=== PATIENT | female | born 1935 | race Caucasian/White ===

== ENCOUNTER → 2017-12-20 15:31 | Outpatient (CLI) | payer MEDICARE, OTHER, SELFPAY | PROVIDERS: Family Provider Family Medicine Geriatric Medicine; PCP Family Medicine Geriatric Medicine; Visit Provider Family Medicine Geriatric Medicine | DX: R68.83 Chills (without fever) (principal) | CPT/HCPCS: 87633 ==

== ENCOUNTER → 2018-01-08 08:31 | Outpatient (CLI) | payer MEDICARE, OTHER, SELFPAY ==
[2018-01-08 09:50] LABS: AST(SGOT) 20 U/L (15-37); Alanine Aminotransfer ALT/SGPT 23 U/L (13-56); Albumin, Serum 3.5 g/dL (3.2-5.0); Alkaline Phosphatase 122 U/L (45-117); Cholesterol 182 mg/dL (200); Globulin 3.8 g/dL (2.2-4.2); High Density Lipoprotein 92 mg/dL; Protein, Total 7.3 g/dL (6.4-8.2); Triglycerides 63 mg/dL; Very Low Density Lipoprotein 13 mg/dL (5-40)
== END ==
PROVIDERS: Family Provider Family Medicine Geriatric Medicine; PCP Family Medicine Geriatric Medicine; Visit Provider Physician Assistant Medical
DX: E78.5 Hyperlipidemia, unspecified (principal); Z79.899 Other long term (current) drug therapy
CPT/HCPCS: 36415; 80061; 80076

== ENCOUNTER → 2018-03-21 11:11 | Outpatient (CLI) | payer MEDICARE, OTHER, SELFPAY ==
[2018-03-21 12:43] LABS: Absolute Lymphocyte Count 0.97 X10^3/ul (0.83-4.51); Absolute Neutrophil Count 6.1 X10^3/uL (2.0-7.7); Basophil# 0.03 X10^3/uL; Basophil% 0.4 % (0-1); Eosinophil# 0.37 X10^3/uL; Eosinophils% 4.4 % (0-5); Hematocrit 38.8 % (37-47); Lymphocyte # 0.97 X10^3/ul (4.0); Lymphocyte % 11.6 % (19-41); Mean Corp Hgb Conc 30.9 g/gl (32-36); Mean Corpuscular Hgb 29.6 pg (27.0-32.0); Mean Corpuscular Volume 95.6 fL (81-99); Mean Platelet Vol. 11.1 fl (6.2-12.0); Monocyte# 0.93 X10^3/uL; Monocyte% 11.1 % (0-10); Neutrophil # 6.07 X10^3/uL (2.7-7.7); Neutrophil % 72.3 % (47-70); Platelet Count 215 K/mm3 (150-450); RBC Distribution Width SD 48.9 fl (35.1-43.9); Red Blood Count 4.06 M/mm3 (4.2-5.4); White Blood Count 8.4 K/mm3 (4.4-11.0)
[2018-03-21 12:53] LABS: POSITIVE COUNT NO; POSITIVE DIFFERENTIAL NO; POSITIVE MORPHOLOGY NO
[2018-03-21 13:02] LABS: ALB/GLOB Ratio 0.8 RATIO (0.9-2.4); AST(SGOT) 23 U/L (15-37); Alanine Aminotransfer ALT/SGPT 22 U/L (13-56); Albumin, Serum 3.3 g/dL (3.2-5.0); Alkaline Phosphatase 133 U/L (45-117); Anion Gap 5 (5-15); BUN 23 mg/dL (7-18); BUN/Creat Ratio 20.4 RATIO (10-20); Calcium,Total 9.1 mg/dL (8.5-10.1); Chloride 101 mmol/L (98-107); Creatinine, Serum 1.13 mg/dL (0.55-1.02); EST Glomerular Filtration Rate 49 mL/min (>60); Est Glom Filt Rate - Afr Amer 59 mL/min (>60); Globulin 4.2 g/dL (2.2-4.2); Glucose 88 mg/dL (74-106); Potassium 4.5 mmol/L (3.5-5.1); Protein, Total 7.5 g/dL (6.4-8.2); Sodium Level 136 mmol/L (136-145); Thyroid Stim Hormone (TSH) 1.76 uIU/mL (0.358-3.74)
== END ==
PROVIDERS: Family Provider Family Medicine Geriatric Medicine; PCP Family Medicine Geriatric Medicine; Visit Provider Family Medicine Geriatric Medicine
DX: E55.9 Vitamin D deficiency, unspecified (principal); I10 Essential (primary) hypertension
CPT/HCPCS: 36415; 80053; 82306; 84443; 85025

== ENCOUNTER → 2018-05-29 16:24 | Outpatient (CLI) | payer MEDICARE, OTHER, SELFPAY ==
[2018-05-29 17:43] LABS: Absolute Lymphocyte Count 1.27 X10^3/ul (0.83-4.51); Absolute Neutrophil Count 5.5 X10^3/uL (2.0-7.7); Basophil# 0.04 X10^3/uL; Basophil% 0.5 % (0-1); Eosinophil# 0.33 X10^3/uL; Eosinophils% 4.2 % (0-5); Hematocrit 39.3 % (37-47); Hemoglobin 12.2 g/dl (12.0-15.0); Lymphocyte # 1.27 X10^3/ul (4.0); Lymphocyte % 16.1 % (19-41); Mean Corpuscular Hgb 30.1 pg (27.0-32.0); Mean Platelet Vol. 11.7 fl (6.2-12.0); Monocyte# 0.77 X10^3/uL; Monocyte% 9.8 % (0-10); Neutrophil # 5.46 X10^3/uL (2.7-7.7); Neutrophil % 69.1 % (47-70); Platelet Count 219 K/mm3 (150-450); RBC Distribution Width CV 13.4 % (11.6-14.6); RBC Distribution Width SD 46.2 fl (35.1-43.9); Red Blood Count 4.05 M/mm3 (4.2-5.4); White Blood Count 7.9 K/mm3 (4.4-11.0)
[2018-05-29 17:44] LABS: POSITIVE COUNT NO; POSITIVE DIFFERENTIAL NO; POSITIVE MORPHOLOGY NO
[2018-05-29 17:45] LABS: ALB/GLOB Ratio 0.8 RATIO (0.9-2.4); AST(SGOT) 23 U/L (15-37); Alanine Aminotransfer ALT/SGPT 20 U/L (13-56); Albumin, Serum 3.3 g/dL (3.2-5.0); Alkaline Phosphatase 133 U/L (45-117); Anion Gap 6 (5-15); BUN 18 mg/dL (7-18); Calcium,Total 8.9 mg/dL (8.5-10.1); Chloride 101 mmol/L (98-107); EST Glomerular Filtration Rate 56 mL/min (>60); Est Glom Filt Rate - Afr Amer 68 mL/min (>60); Globulin 4.3 g/dL (2.2-4.2); Glucose 77 mg/dL (74-106); Potassium 4.9 mmol/L (3.5-5.1); Protein, Total 7.6 g/dL (6.4-8.2); Sodium Level 136 mmol/L (136-145); Thyroid Stim Hormone (TSH) 2.14 uIU/mL (0.358-3.74)
== END ==
PROVIDERS: Family Provider Family Medicine Geriatric Medicine; PCP Family Medicine Geriatric Medicine; Visit Provider Family Medicine Geriatric Medicine
DX: R53.83 Other fatigue (principal)
CPT/HCPCS: 36415; 80053; 84443; 85025; 87086; 87088

== ENCOUNTER → 2018-06-21 14:33 | Outpatient (CLI) | payer MEDICARE, OTHER, SELFPAY | PROVIDERS: Family Provider Family Medicine Geriatric Medicine; PCP Family Medicine Geriatric Medicine; Visit Provider Family Medicine Geriatric Medicine | DX: Z12.31 Encounter for screening mammogram for malignant neoplasm of breast (principal) | CPT/HCPCS: 77063; 77067 ==

== ENCOUNTER → 2018-09-19 10:17 | Outpatient (CLI) | payer MEDICARE, OTHER, SELFPAY ==
[2018-09-16 14:57] VITALS: BMI 25.4
[2018-09-19 12:47] LABS: Absolute Lymphocyte Count 1.07 X10^3/ul (0.83-4.51); Absolute Neutrophil Count 5.3 X10^3/uL (2.0-7.7); Basophil# 0.05 X10^3/uL; Basophil% 0.6 % (0-1); Eosinophil# 0.47 X10^3/uL; Eosinophils% 6.1 % (0-5); Hematocrit 36.2 % (37-47); Hemoglobin 11.1 g/dl (12.0-15.0); Lymphocyte # 1.07 X10^3/ul (4.0); Lymphocyte % 13.8 % (19-41); Mean Corp Hgb Conc 30.7 g/gl (32-36); Mean Corpuscular Volume 94.5 fL (81-99); Mean Platelet Vol. 11.5 fl (6.2-12.0); Monocyte% 11.6 % (0-10); Neutrophil # 5.25 X10^3/uL (2.7-7.7); Neutrophil % 67.8 % (47-70); Platelet Count 216 K/mm3 (150-450); RBC Distribution Width CV 14.1 % (11.6-14.6); RBC Distribution Width SD 48.6 fl (35.1-43.9); Red Blood Count 3.83 M/mm3 (4.2-5.4); White Blood Count 7.8 K/mm3 (4.4-11.0)
[2018-09-19 12:50] LABS: POSITIVE COUNT NO; POSITIVE DIFFERENTIAL NO; POSITIVE MORPHOLOGY NO
[2018-09-19 13:18] LABS: Vitamin D,25 Hydroxy 45.5 ng/mL (29.95-100.01)
[2018-09-19 13:19] LABS: ALB/GLOB Ratio 0.8 RATIO (0.9-2.4); AST(SGOT) 22 U/L (15-37); Alanine Aminotransfer ALT/SGPT 23 U/L (13-56); Albumin, Serum 3.2 g/dL (3.2-5.0); Alkaline Phosphatase 120 U/L (45-117); Anion Gap 9 (5-15); BUN 18 mg/dL (7-18); BUN/Creat Ratio 17.5 RATIO (10-20); Calcium,Total 8.8 mg/dL (8.5-10.1); Chloride 100 mmol/L (98-107); Creatinine, Serum 1.03 mg/dL (0.55-1.02); EST Glomerular Filtration Rate 54 mL/min (>60); Est Glom Filt Rate - Afr Amer 66 mL/min (>60); Globulin 3.9 g/dL (2.2-4.2); Glucose 117 mg/dL (74-106); Protein, Total 7.1 g/dL (6.4-8.2); Sodium Level 138 mmol/L (136-145); Thyroid Stim Hormone (TSH) 1.89 uIU/mL (0.358-3.74)
--- OUTSIDE RECORDS SUMMARY | 2018-11-14 12:08 | XMS RPT_ITS ---
:1935 Author Organization OHIP Support Name Relationship Address Phone R Unavailable Unavailable Unavailable DAVID, ADRIANNA Unavailable [address] + [place] [address] R Unavailable Unavailable Unavailable DAVID, ADRIANNA Unavailable [address] + [place] [address] R Unavailable Unavailable Unavailable DAVID, ADRIANNA Unavailable [address] + [place] [address] R Unavailable Unavailable Unavailable DAVID, ADRIANNA Unavailable [address] + [place] [address] R Unavailable Unavailable Unavailable DAVID, ADRIANNA Unavailable [address] + [place] [address] R Unavailable Unavailable Unavailable DAVID, ADRIANNA Unavailable [address] + [place] [address] R Unavailable Unavailable Unavailable DAVID, ADRIANNA Unavailable [address] + [place] [address] R Unavailable Unavailable Unavailable DAVID, ADRIANNA Unavailable [address] + [place] [address] R Unavailable Unavailable Unavailable DAVID, ADRIANNA Unavailable [address] + [place] [address] R Unavailable Unavailable Unavailable DAVID, ADRIANNA Unavailable [address] + [place] [address] R Unavailable Unavailable Unavailable David, Adrianna Unavailable [address] + [place] [address] Care Team Providers Name Role Phone Vahid, Blas Chi Attending Unavailable Vahid, Blas Chi Referring Unavailable Vahid, Blas Chi Primary Care Unavailable Katja Michelle Attending Unavailable Katja Michelle Referring Unavailable Vahid, Blas Chi Primary Care Unavailable Dary Beverly Attending Unavailable Louie Crawford Attending Unavailable Vahid, Blas Chi Referring Unavailable Vahid, Blas Chi Primary Care Unavailable Ting Lawrence Attending Unavailable Louie Crawford Attending Unavailable Vahid, Blas Chi Referring Unavailable Vahid, Blas Chi Primary Care Unavailable Vahid, Blas Chi Attending Unavailable Vahid, Blas Chi Primary Care Unavailable Vahid, Blas Chi Attending Unavailable Vahid, Blas Chi Primary Care Unavailable Vahid, Blas Chi Attending Unavailable Vahid, Blas Chi Primary Care Unavailable Louie Crawford Attending Unavailable Vahid, Blas Chi Referring Unavailable Vahid, Blas Chi Attending Unavailable Vahid, Blas Chi Primary Care Unavailable PROBLEMS PROBLEMS DATE TYPE CONDITION / CODE ATTENDING STATUS SOURCE 06/21/2018 Unknown Z12.31 - Encounter Vahid, Blas Chi [facility] for screening [facility] mammogram for Hospital malignant neoplasm Repository of breast / Z12.31(ICD-10) 03/21/2018 Unknown I10 - Essential Vahid, Blas Chi [facility] [place] (primary) [facility] hypertension / Hospital I10(ICD-10) Repository 03/21/2018 Unknown E55.9 - Vitamin D Vahid, 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 (current) drug Hospital therapy / Repository Z79.899(ICD-10) PROCEDURES PROCEDURES No Procedure Records FoundRESULTS RESULTS CARDIOLOGY VISIT Observed: 09/20/2018 Status: F Source: [place] REPORT 11:12 AM [facility] REPOSITORY [facility] [address] [place] [address] OFFICE VISIT Date of Service: 09/16/18 MR#: [id number] Acct: [id number] Name: DEISY CASTILLO Rep #: [id number] : 1935 Provider: Louie Crawford MD Age/Sex: 83/F Location: [facility] Status: Signed HPI HPI Chief Complaint: Routine f/u Details: Referring physician: Dr Redding Mrs. Castillo is a very pleasant 83-year-old female, looks younger than her stated age, with a history of hypertension, hyperlipidemia, on losartan, and recently added HCTZ. She does not recall what her blood pressure was at that time but does not remember it being higher than 150 systolic. this seemed to control her very well, but she subsequently developed dehydration requiring cessation of her HCTZ and fluid resuscitation. Since that time the patient has had palpitations, and had acute dizziness requiring a visit to her PCPs office on 06/04/15. It apparently started abruptly, then became profoundly dizzy. her PCP felt that she was mildly dehydrated and she received 2 liters of IV fluids in his office for what appeared to be orthostatic hypotension. After that she felt much better. In addition we tried her hydrochlorothiazide every other day but she continued to have positional dizziness and hypotension. We discontinued her HCTZ altogether, and her blood pressure is normalized and she is doing extremely well. Since adjusting her medication as she walks about 35 minutes every day without any difficulty whatsoever. She is doing very well. She denies any anginal type symptoms. She has had no change in her exercise capacity. More recently, the [facility] into a [facility] living center, and has been doing quite well. She has adjusted fairly well, and has had very little difficulty. She is essentially asymptomatic at this time. She is compliant with her medications, and recently got a flu shot. However, in today's office her blood pressure is 120/60 and pulse is 76 and regular with ectopics. Her physical exam is as below. Her lipids as of 01/2016 showed HDL of 86 and LDL of 72. Her lipids as of 08/04/16 show HDL 112, and an LDL of 77. Lipids as of 02/06/17 show an HDL of 105 and an LDL of 66. No myalgias are noted. Lipids as of 07/10/17 showed LDL of 61 and HDL of 86. Her lipids as of 01/08/18 showed HDL of 92 and LDL of 77. EKG previously demonstrates normal sinus rhythm with frequent PACs, no acute changes. Intake Vital Signs09/16/18 Height 5 ft 4 in 09/16/18 Weight: 148 lb 09/16/18 Body Mass Index (BMI) 25.4 09/16/18 Blood Pressure 120/60 Intake Visit Reasons: 6 M FU Change Room Attendant Required: No Is patient in pain?: No Allergies No Known Allergies Allergy (Verified 09/16/18 14:58) Medications aspirin 81 mg tablet,delayed release 81 mg PO QDAY tab 02/02/18 [History Confirmed 09/16/18] cyanocobalamin (vit B-12) 1,000 mcg sublingual tablet 1,000 mcg SUBLINGUAL QDAY 02/02/18 [History Confirmed 09/16/18] ferrous sulfate 325 mg (65 mg iron) tablet 325 mg PO QDAY tab 02/02/18 [History Confirmed 09/16/18] levothyroxine 50 mcg tablet 50 mcg PO QDAY tab 02/02/18 [History Confirmed 09/16/18] magnesium oxide 400 mg (241.3 mg magnesium) tablet 400 mg PO QDAY tab 02/02/18 [History Confirmed 09/16/18] montelukast 10 mg tablet PO 90 Days 02/02/18 [History Confirmed 09/16/18] pravastatin 20 mg tablet PO 90 Days 02/02/18 [History Confirmed 09/16/18] diltiazem CD 120 mg capsule,extended release 24 hr 120 mg PO QAM #90 cap 09/16/18 [Rx Confirmed 09/16/18] losartan 100 mg tablet 100 mg PO QDAY #90 tab 09/16/18 [Rx Confirmed 09/16/18] PFSH Medical History Non-rheumatic tricuspid valve insufficiency (Chronic) Hyperlipidemia (Chronic) Hypertension (Chronic) Anemia (Chronic) Asthma (Chronic) Hypothyroidism (Chronic) Osteoporosis (Chronic) Surgical History History of cataract surgery (Chronic) Family History Sister Breast cancer Social History Smoking Status: Never smoker ROS Const Const: Positive for other (Feels well, is moving to [facility]); negative for fatigue, weakness, body ache, fever(s), headache(s), chills, frequent falls, night sweats, daytime sleepiness, difficulty sleeping, excessive sweating, weight gain, weight loss, increased appetite, poor appetite or anorexia Eyes Eyes: Negative for blind spots, loss of peripheral vision, transient loss of vision, blurry vision, change in vision, double vision, floaters, tunnel vision or other ENT ENT: Negative for headache(s), dizziness, hearing loss, tinnitus, Nosebleed/epistaxis, balance problems, post nasal drip, lip swelling, tongue swelling, bleeding gums, hoarseness, neck pain, dry mouth or other Cardio Chest Pain: No Palpitations: No Edema: None Muscle aches with walking: None Resp Respiratory: Negative for SOB with activity, SOB at rest, SOB orthopnea\SOB lying down, Cough, Coughing up blood/hemoptysis, chest congestion, pain on inspiration, snoring, stridor, wheezing, crackles, paroxysmal nocturnal dyspnea or other GI GI: Negative nausea, vomiting, heartburn, constipation, belching, bloating, cramping, vomiting blood/hematemesis, bright, red blood in stools, black,tarry stools, loose stools, Difficulty Swallowing or other : Negative for hematuria, frequent nighttime urination/ nocturia, erectile dysfunction or abnormal vaginal bleeding Musc Musc: Negative for balance problems, muscle aches/ myalgia, muscle weakness or joint pain Skin Skin: Negative redness, non-healing lesions, rash, unusual bruising, skin ulcer, wounds, jaundice or other Neuro Neuro: Negative for weakness, headache(s), frequent falls, blurry vision, double vision, dizziness, lightheadedness, near syncope, syncope, orthostatic symptoms, confusion, memory loss, restless legs, vertigo, seizures, lack of coordination or other [place] Hematologic/Lymphatic: Negative for easy bleeding, easy bruising, enlarged lymph nodes or other Endo Endo: Negative for fatigue, excessive sweating, cold intolerance, heat intolerance, flushing, increased thirst/drinking, increased hunger, hair loss, hair growth or other Psych Psych: Negative for anxiety, depression, thoughts of harming anyone, thoughts of harming yourself, visual hallucinations, panic attacks or audible hallucinations Allergy Allergy/Immunology: Negative for lip swelling, Negative for tongue swelling, Negative for rash, Negative for throat swelling, Negative for hives Cardiology Exam Const Appearance: cooperative, healthy appearing and no acute distress Nutritional Appearance: well nourished Orientation: alert, oriented x3 and oriented to person Head Head: normal to inspection, atraumatic and normocephalic Nose: external nose normal Face and Sinus: face symmetric Mouth: oral mucosae normal Eyes General: appearance normal, both eyes and all related structures Eyelids: eyelids normal Conjunctivae: conjunctivae normal Pupils: PERRL and normal by confrontation EOM: EOM intact bilaterally Neck Neck: normal visual inspection and full ROM Carotids: normal carotid upstroke Chest Chest inspection: normal inspection of the chest Auscultation: Bilateral: Clear to Auscultation Cardio Palpation: normal PMI Rate: regular rate Rhythm: regular rhythm Heart sounds: S1 normal and S2 normal GI GI: normal to inspection, no hepatosplenomegaly and bowel sounds present Neuro General: alert, oriented x3, awake, CN's II-XI intact bilaterally and moves all extremities Skin Skin: no rashes or lesions noted Extremities Pulses: Normal: Right Femoral Pulse, Left Femoral Pulse, Right Dorsalis Pedis Pulse, Left Dorsalis Pedis Pulse, Right Posterior Tibial Pulse, Left Posterior Tibial Pulse, Right Radial Pulse, Left Radial Pulse Lower Extremity Edema: None: Bilateral Psych Psychological: normal affect Assessment AND Plan 1. Hypertension I10 Plan 1. Retention: Her blood pressure and heart rate are fairly well-controlled. She is tolerating her medicines well. She has had no further dizzy spells or positional lightheadedness and is tolerated moving her condominium into a assisted living center. Recommend that she continue her baby aspirin, diltiazem, losartan and magnesium. 2. Hyperlipidemia E78.5 Plan 2. Hyperlipidemia: Her LDL and HDL cholesterol are fairly well-controlled. Continue Pravachol. 3. Return office in 4 months with either myself or an LOADING MANAGER. This note was generated using a voice recognition system and there may be incorrect words, spelling or punctuation that were not noted when reviewing the office note prior to saving. Plan Detail Other Medications Refilled: Follow Up +4M (Ty or [facility]) Coding Level of Care Code Off vis,est,level 3 Diagnoses Hypertension I10 Hyperlipidemia E78.5 Coding Level of Care Code Off vis,est,level 3 Diagnoses Hypertension I10 Hyperlipidemia E78.5 09/20/18 1112 <Electronically signed by Louie Crawford MD> Date Louie Crawford MD Cosigner Signature: Date (if applicable) CC: Blas Redding MD CBC W/DIFF, AUTOMATED Collected: 09/19/2018 Status: F Source: [place] 12:02 PM [facility] REPOSITORY TYPE CODE TESTS RESULT OUT OF RANGE REFERENCE UNITS LAB L100.1000 4.4-11.0 K/mm3 Normal WBC 7.8 LAB L100.1200 4.2-5.4 M/mm3 Low RBC 3.83 LAB L100.1300 12.0-15.0 g/dl Low HGB 11.1 LAB L100.1400 37-47 % Low HCT 36.2 LAB L100.1500 81-99 fL Normal MCV 94.5 LAB L100.1600 27.0-32.0 pg Normal MCH 29.0 LAB L100.1700 32-36 g/gl Low MCHC 30.7 LAB L100.1810 11.6-14.6 % Normal RDW CV 14.1 LAB L100.1820 35.1-43.9 fl High RDW SD 48.6 LAB L100.1900 150-450 K/mm3 Normal PLT 216 LAB L100.2000 6.2-12.0 fl Normal MPV 11.5 LAB L100.2100 47-70 % Normal NEUT% 67.8 LAB L100.2200 19-41 % Low LY% 13.8 LAB L100.2300 0-10 % High MONO% 11.6 LAB L100.2400 0-5 % High EO% 6.1 LAB L100.2500 0-1 % Normal BASO% 0.6 LAB L100.2550 0.0-0.9 % Normal IM GRAN % 0.100 Result Comment: IG% - Immature Granulocytes (promyelocytes, myelocytes and metamyelocytes) > 1% indicates that a LEFT SHIFT is Present. LAB L100.2620 2.0-7.7 X10 3/uL Normal Absolute Neut 5.3 LAB L100.2720 0.83-4.51 X10 3/ul Normal Absolute Lymph 1.07 Performed By: #### L100.0100 #### [facility] [address] [place], [place], [id number] VITAMIN D,25 HYDROXY Collected: 09/19/2018 Status: F Source: [place] 12:02 PM [facility] REPOSITORY TYPE CODE TESTS RESULT OUT OF RANGE REFERENCE UNITS LAB L506.1000 29.95-100.01 ng/mL Normal Vitamin D 45.5 25-OH Result Comment: Vitamin D 25(OH) Status Range Deficiency <20 ng/mL (50nmol/L) Insuffciency 20 - 30 ng/mL (50 - 75 nmol/L) Sufficiency 30 - 100 ng/mL (75 - 250 nmol/L) Toxicity >100 ng/mL (>250 nmol/L) Performed By: #### L506.1000 #### [facility] [address] [place], [address] COMPREHENSIVE METABOLIC Collected: 09/19/2018 Status: F Source: [place] [facility] 12:02 PM [facility] REPOSITORY TYPE CODE TESTS RESULT OUT OF RANGE REFERENCE UNITS LAB L501.0100 74-106 mg/dL High GLU 117 Result Comment: Fasting Glucose result from 100 to 125 mg/dL suggests IMPAIRED HOMEOSTASIS per A.D.A. criteria. Please note revised GLUCOSE reference range effective 2017. LAB L501.1000 7-18 mg/dL Normal BUN 18 LAB L501.1100 0.55-1.02 mg/dL High CREAT,SERUM 1.03 Result Comment: The validity of the calculated GFR AND GFRAA in patients over 70 years has not been determined. Clinical correlation is essential. LAB L501.1110 >60 mL/min Low EST GFR 54 Result Comment: Non- GFR Calc LAB L501.1115 >60 mL/min Normal EST GFR - AA 66 Result Comment: GFR Calc LAB L501.1300 10-20 RATIO Normal BUN/CRE 17.5 LAB L501.1500 6.4-8.2 g/dL T Normal PROT 7.1 LAB L501.1800 3.2-5.0 g/dL Normal ALB 3.2 LAB L501.1950 2.2-4.2 g/dL Normal GLOB 3.9 LAB L501.2000 0.9-2.4 RATIO Low A/G 0.8 LAB L501.2200 8.5-10.1 mg/dL CA Normal 8.8 LAB L501.4100 15-37 U/L Normal AST 22 LAB L501.4305 45-117 U/L High ALK P 120 LAB L501.4405 13-56 U/L Normal ALT 23 LAB L501.4600 0.20-1.00 mg/dL T Normal BILI 0.50 LAB L501.5300 136-145 mmol/L NA Normal 138 LAB L501.5600 3.5-5.1 mmol/L K Normal 4.0 LAB L501.5900 98-107 mmol/L CL Normal 100 LAB L501.6100 21.0-32.0 mmol/L Normal CO2 29.0 LAB L501.6200 5-15 Normal GAP 9 Performed By: #### L500.4050, L501.9520 #### [facility] [address] [place], [address] THYROID STIM HORMONE Collected: 09/19/2018 Status: F Source: [place] (TSH) 12:02 PM [facility] REPOSITORY TYPE CODE TESTS RESULT OUT OF RANGE REFERENCE UNITS LAB L501.9520 0.358-3.74 uIU/mL Normal TSH 1.89 Performed By: #### L500.4050, L501.9520 #### [facility] [address] [place], [address] SCREENING MAMM (CAD), Observed: 06/21/2018 Status: F Source: [place] BILAT 2:36 PM [facility] REPOSITORY [facility] Imaging Services [address] [place] [address] SCREENING MAMM (CAD), BILAT MR#: [id number] Acct: [id number] Name: DEISY CASTILLO Rep #: [id number] : 1935 F 82 From: Jose Alberto Houser MD PCP: Blas Redding MD, Chi Status: REG CL Study: SCREENING MAMM (CAD), BILAT Date of Exam: 06/21/18 Exam# [id number] Ordering Dr: Blas Redding MD MAMMOGRAPHY - BILATERAL SCREENING REASON FOR EXAM: Female, 82 years old. Routine annual screening examination. PERTINENT HISTORY: Daughter with breast cancer. Sisters with breast cancer. TECHNIQUE: Digital bilateral breast delon (3D mammographic acquisition) in the CC and MLO projections. 2-D mediolateral oblique (MLO) and craniocaudad (CC) views of both breasts were obtained. CAD: Full Field Digital Mammography with Computer Added Detection was performed. COMPARISON: Comparison is made with prior study dated June 20, 2017 and June 15, 2016. FINDINGS: Breast Composition: The breasts are heterogeneously dense, which may obscure small masses. There are no dominant masses or suspicious calcifications. No other significant abnormalities are identified. There has been no significant change since the prior study. BI/SCREENING MAMM (CAD), BILAT IMPRESSION: Stable bilateral screening mammogram. Yearly follow-up mammogram recommended. (A) ASSESSMENT CATEGORY: BIRADS Category 1: Negative. A letter regarding these results will be sent to the patient by the facility within 30 days. Approximately 10% of breast cancers are not detected by mammography. A normal mammogram should not delay biopsy of a clinically suspicious abnormality. [id number] Electronically Signed: Jose Alberto Houser MD at 15:35 EDT Tel [phone], Service support , CC: Blas Redding MD Theater Projectionist: Signed CBC W/DIFF, AUTOMATED Collected: 05/29/2018 Status: F Source: [place] 4:25 PM [facility] REPOSITORY TYPE CODE TESTS RESULT OUT OF RANGE REFERENCE UNITS LAB L100.1000 4.4-11.0 K/mm3 Normal WBC 7.9 LAB L100.1200 4.2-5.4 M/mm3 Low RBC 4.05 LAB L100.1300 12.0-15.0 g/dl Normal HGB 12.2 LAB L100.1400 37-47 % Normal HCT 39.3 LAB L100.1500 81-99 fL Normal MCV 97.0 LAB L100.1600 27.0-32.0 pg Normal MCH 30.1 LAB L100.1700 32-36 g/gl Low MCHC 31.0 LAB L100.1810 11.6-14.6 % Normal RDW CV 13.4 LAB L100.1820 35.1-43.9 fl High RDW SD 46.2 LAB L100.1900 150-450 K/mm3 Normal PLT 219 LAB L100.2000 6.2-12.0 fl Normal MPV 11.7 LAB L100.2100 47-70 % Normal NEUT% 69.1 LAB L100.2200 19-41 % Low LY% 16.1 LAB L100.2300 0-10 % Normal MONO% 9.8 LAB L100.2400 0-5 % Normal EO% 4.2 LAB L100.2500 0-1 % Normal BASO% 0.5 LAB L100.2550 0.0-0.9 % Normal IM GRAN % 0.300 Result Comment: IG% - Immature Granulocytes (promyelocytes, myelocytes and metamyelocytes) > 1% indicates that a LEFT SHIFT is Present. LAB L100.2620 2.0-7.7 X10 3/uL Normal Absolute Neut 5.5 LAB L100.2720 0.83-4.51 X10 3/ul Normal Absolute Lymph 1.27 Performed By: #### L100.0100 #### [facility] [address] [place], [address] COMPREHENSIVE METABOLIC Collected: 05/29/2018 Status: F Source: [facility] 4:25 PM [facility] REPOSITORY TYPE CODE TESTS RESULT OUT OF RANGE REFERENCE UNITS LAB L501.0100 74-106 mg/dL Normal GLU 77 Result Comment: Please note revised GLUCOSE reference range effective 2017. LAB L501.1000 7-18 mg/dL Normal BUN 18 LAB L501.1100 0.55-1.02 mg/dL Normal CREAT,SERUM 1.00 Result Comment: The validity of the calculated GFR AND GFRAA in patients over 70 years has not been determined. Clinical correlation is essential. LAB L501.1110 >60 mL/min Low EST GFR 56 Result Comment: Non- GFR Calc LAB L501.1115 >60 mL/min Normal EST GFR - AA 68 Result Comment: GFR Calc LAB L501.1300 10-20 RATIO Normal BUN/CRE 18.0 LAB L501.1500 6.4-8.2 g/dL T Normal PROT 7.6 LAB L501.1800 3.2-5.0 g/dL Normal ALB 3.3 LAB L501.1950 2.2-4.2 g/dL High GLOB 4.3 LAB L501.2000 0.9-2.4 RATIO Low A/G 0.8 LAB L501.2200 8.5-10.1 mg/dL CA Normal 8.9 LAB L501.4100 15-37 U/L Normal AST 23 LAB L501.4305 45-117 U/L High ALK P 133 LAB L501.4405 13-56 U/L Normal ALT 20 LAB L501.4600 0.20-1.00 mg/dL T Normal BILI 0.30 LAB L501.5300 136-145 mmol/L NA Normal 136 LAB L501.5600 3.5-5.1 mmol/L K Normal 4.9 LAB L501.5900 98-107 mmol/L CL Normal 101 LAB L501.6100 21.0-32.0 mmol/L Normal CO2 29.0 LAB L501.6200 5-15 Normal GAP 6 Performed By: #### L500.4050, L501.9520 #### [facility] [address] [place], [place], [address] THYROID STIM HORMONE Collected: 05/29/2018 Status: F Source: [place] (TSH) 4:25 PM [facility] REPOSITORY TYPE CODE TESTS RESULT OUT OF RANGE REFERENCE UNITS LAB L501.9520 0.358-3.74 uIU/mL Normal TSH 2.14 Performed By: #### L500.4050, L501.9520 #### [facility] [address] [place], [place], [address] Observed: 05/29/2018 Status: F Source: [place] CULTURE, URINE 4:25 PM [facility] REPOSITORY Urine Culture ORGANISM 1: Mixed Gram Pos AND Gram Neg Org [place] Count 11,000-25,000 MIX CULTURE Mixed contaminants. Submit a new specimen if indicated. Performed By: #### M100.0650 #### [facility] [address] [place], [address] OFFICE VISIT REPORT Observed: 04/13/2018 Status: F Source: [place] 2:27 PM [facility] REPOSITORY [facility] Services [address] [place] [address] OFFICE VISIT Date of Service: 02/18/18 MR#: [id number] Acct: [id number] Patient: DEISY CASTILLO Rep #: [id number] : 1935 Provider: Louie Crawford MD Age/Sex: 82/F Location: [facility] Status: Signed Intake Vital Signs02/21/18 Blood Pressure 134/62 02/21/18 Pulse Rate 80 Intake Visit Reasons: 2 wk bp ck per DJN Chief Complaint: Routine f/u Allergies No Known Allergies Allergy (Unverified 02/04/18 13:23) Medications aspirin 81 mg tablet,delayed release 81 mg PO QDAY tab 02/02/18 [History Confirmed 02/04/18] cyanocobalamin (vit B-12) 1,000 mcg sublingual tablet 1,000 mcg SUBLINGUAL QDAY 02/02/18 [History Confirmed 02/04/18] ferrous sulfate 325 mg (65 mg iron) tablet 325 mg PO QDAY tab 02/02/18 [History Confirmed 02/04/18] levothyroxine 50 mcg tablet 50 mcg PO QDAY tab 02/02/18 [History Confirmed 02/04/18] magnesium oxide 400 mg tablet 400 mg PO QDAY tab 02/02/18 [History Confirmed 02/04/18] mometasone 220 mcg (60 doses) breath activated powder inhaler INHALATION 30 Days 02/02/18 [History Confirmed 02/04/18] montelukast 10 mg tablet PO 90 Days 02/02/18 [History Confirmed 02/04/18] pravastatin 20 mg tablet PO 90 Days 02/02/18 [History Confirmed 02/04/18] diltiazem CD 120 mg capsule,extended release 24 hr 120 mg PO QAM #30 cap 02/04/18 [Rx Confirmed 02/04/18] losartan 100 mg tablet 100 mg PO QDAY #90 tab 04/02/18 [Rx] Nurse's Note: 02/18/2018 This is a f/u from her OV 2 weeks ago. Hr BP was under control, but admits to increased heart rate. At the OV, her heart rate was > 100bpm. Cardizem added, patient has no complaints. BP 134/62, hr 80. She will continue with current medical therapy. Nursing Note Patient here today for an EKG. Patient was recently in the hospital. She states she feels good today. Katja Michelle reviewed EKG. Patient notified to keep everything the same. She was instructed to call if any problems arise prior to next office visit. Patient verbalized understanding. 04/13/18 1427 <Electronically signed by Louie Crawford MD> Date Louie Crawford MD Cosigner Signature: Date (if applicable) CC: Dary Bevelry CBC W/DIFF, AUTOMATED Collected: 03/21/2018 Status: F Source: [place] 11:13 AM [facility] REPOSITORY TYPE CODE TESTS RESULT OUT OF RANGE REFERENCE UNITS LAB L100.1000 4.4-11.0 K/mm3 Normal WBC 8.4 LAB L100.1200 4.2-5.4 M/mm3 Low RBC 4.06 LAB L100.1300 12.0-15.0 g/dl Normal HGB 12.0 LAB L100.1400 37-47 % Normal HCT 38.8 LAB L100.1500 81-99 fL Normal MCV 95.6 LAB L100.1600 27.0-32.0 pg Normal MCH 29.6 LAB L100.1700 32-36 g/gl Low MCHC 30.9 LAB L100.1810 11.6-14.6 % Normal RDW CV 14.0 LAB L100.1820 35.1-43.9 fl High RDW SD 48.9 LAB L100.1900 150-450 K/mm3 Normal PLT 215 LAB L100.2000 6.2-12.0 fl Normal MPV 11.1 LAB L100.2100 47-70 % High NEUT% 72.3 LAB L100.2200 19-41 % Low LY% 11.6 LAB L100.2300 0-10 % High MONO% 11.1 LAB L100.2400 0-5 % Normal EO% 4.4 LAB L100.2500 0-1 % Normal BASO% 0.4 LAB L100.2550 0.0-0.9 % Normal IM GRAN % 0.200 Result Comment: IG% - Immature Granulocytes (promyelocytes, myelocytes and metamyelocytes) > 1% indicates that a LEFT SHIFT is Present. LAB L100.2620 2.0-7.7 X10 3/uL Normal Absolute Neut 6.1 LAB L100.2720 0.83-4.51 X10 3/ul Normal Absolute Lymph 0.97 Performed By: #### L100.0100 #### [facility] [address] [place], [address] COMPREHENSIVE METABOLIC Collected: 03/21/2018 Status: F Source: [place] JOSE DANIEL 11:13 AM [facility] REPOSITORY TYPE CODE TESTS RESULT OUT OF RANGE REFERENCE UNITS LAB L501.0100 74-106 mg/dL Normal GLU 88 Result Comment: Please note revised GLUCOSE reference range effective 2017. LAB L501.1000 7-18 mg/dL High BUN 23 LAB L501.1100 0.55-1.02 mg/dL High CREAT,SERUM 1.13 Result Comment: The validity of the calculated GFR AND GFRAA in patients over 70 years has not been determined. Clinical correlation is essential. LAB L501.1110 >60 mL/min Low EST GFR 49 Result Comment: Non- GFR Calc LAB L501.1115 >60 mL/min Low EST GFR - AA 59 Result Comment: GFR Calc LAB L501.1300 10-20 RATIO High BUN/CRE 20.4 LAB L501.1500 6.4-8.2 g/dL T Normal PROT 7.5 LAB L501.1800 3.2-5.0 g/dL Normal ALB 3.3 LAB L501.1950 2.2-4.2 g/dL Normal GLOB 4.2 LAB L501.2000 0.9-2.4 RATIO Low A/G 0.8 LAB L501.2200 8.5-10.1 mg/dL CA Normal 9.1 LAB L501.4100 15-37 U/L Normal AST 23 LAB L501.4305 45-117 U/L High ALK P 133 LAB L501.4405 13-56 U/L Normal ALT 22 LAB L501.4600 0.20-1.00 mg/dL T Normal BILI 0.40 LAB L501.5300 136-145 mmol/L NA Normal 136 LAB L501.5600 3.5-5.1 mmol/L K Normal 4.5 LAB L501.5900 98-107 mmol/L CL Normal 101 LAB L501.6100 21.0-32.0 mmol/L Normal CO2 30.0 LAB L501.6200 5-15 Normal GAP 5 Performed By: #### L500.4050, L501.9520 #### [facility] [address] [facility] [place], [place], [address] THYROID STIM HORMONE Collected: 03/21/2018 Status: F Source: [place] (TSH) 11:13 AM [facility] REPOSITORY TYPE CODE TESTS RESULT OUT OF RANGE REFERENCE UNITS LAB L501.9520 0.358-3.74 uIU/mL Normal TSH 1.76 Performed By: #### L500.4050, L501.9520 #### [facility] [address] [place], [address] VITAMIN D,25 HYDROXY Collected: 03/21/2018 Status: F Source: [place] 11:13 AM [facility] REPOSITORY TYPE CODE TESTS RESULT OUT OF RANGE REFERENCE UNITS LAB L506.1000 29.95-100.01 ng/mL Normal Vitamin D 38.0 25-OH Result Comment: Vitamin D 25(OH) Status Range Deficiency <20 ng/mL (50nmol/L) Insuffciency 20 - 30 ng/mL (50 - 75 nmol/L) Sufficiency 30 - 100 ng/mL (75 - 250 nmol/L) Toxicity >100 ng/mL (>250 nmol/L) Performed By: #### L506.1000 #### [facility] [address] [facility] [place], [place], [address] CARDIOLOGY VISIT Observed: 02/04/2018 Status: F Source: [place] REPORT 1:57 PM [facility] REPOSITORY [facility] [facility] [address] [place] [address] OFFICE VISIT Date of Service: 02/04/18 MR#: [id number] Acct: [id number] Name: DEISY CASTILLO Rep #: [id number] : 1935 Provider: Louie Crawford MD Age/Sex: 82/F [place] [facility] Status: Signed HPI HPI Chief Complaint: Routine f/u Details: HPI Referring physician: Dr Redding Mrs. Castillo is a very pleasant 82-year-old female, looks younger than her stated age, with a history of hypertension, hyperlipidemia, recently placed on losartan, and recently added HCTZ About 3 years ago. She does not recall what her blood pressure was at that time but does not remember it being higher than 150 systolic. this seemed to control her very well, but she subsequently developed dehydration requiring cessation of her HCTZ and fluid resuscitation. Since that time the patient has had palpitations, and had acute dizziness requiring a visit to her PCPs office on 06/04/15. It apparently started abruptly, then became profoundly dizzy. her PCP felt that she was mildly dehydrated and she received 2 liters of IV fluids in his office for what appeared to be orthostatic hypotension. After that she felt much better. In addition we tried her hydrochlorothiazide every other day but she continued to have positional dizziness and hypotension. We discontinued her HCTZ altogether, and her blood pressure is normalized and she is doing extremely well. Since adjusting her medication as she walks about 35 minutes every day without any difficulty whatsoever. She is doing very well. She denies any anginal type symptoms. She has had no change in her exercise capacity. However, in today's office her blood pressure is 120/60 and pulse is 106 and regular with ectopics. Her physical exam is as below. Her lipids as of 01/2016 showed HDL of 86 and LDL of 72. Her lipids as of 08/04/16 show HDL 112, and an LDL of 77. Lipids as of 02/06/17 show an HDL of 105 and an LDL of 66. No myalgias are noted. Lipids as of 07/10/17 showed LDL of 61 and HDL of 86. EKG today demonstrates normal sinus rhythm with frequent PACs, no acute changes. Intake Vital Signs02/04/18 Height 5 ft 4 in 02/04/18 Weight: 139 lb 02/04/18 Body Mass Index (BMI) 23.8 02/04/18 Blood Pressure 120/60 02/04/18 Respiratory Rate 18 02/04/18 Pulse Rate 106 Intake Visit Reasons: 6 M FU Allergies No Known Allergies Allergy (Unverified 02/04/18 13:23) Medications aspirin 81 mg tablet,delayed release 81 mg PO QDAY tab 02/02/18 [History Confirmed 02/04/18] cyanocobalamin (vit B-12) 1,000 mcg sublingual tablet 1,000 mcg SUBLINGUAL QDAY 02/02/18 [History Confirmed 02/04/18] ferrous sulfate 325 mg (65 mg iron) tablet 325 mg PO QDAY tab 02/02/18 [History Confirmed 02/04/18] levothyroxine 50 mcg tablet 50 mcg PO QDAY tab 02/02/18 [History Confirmed 02/04/18] losartan 100 mg tablet 100 mg PO QDAY 02/02/18 [History Confirmed 02/04/18] magnesium oxide 400 mg tablet 400 mg PO QDAY tab 02/02/18 [History Confirmed 02/04/18] mometasone 220 mcg (60 doses) breath activated powder inhaler INHALATION 30 Days 02/02/18 [History Confirmed 02/04/18] montelukast 10 mg tablet PO 90 Days 02/02/18 [History Confirmed 02/04/18] pravastatin 20 mg tablet PO 90 Days 02/02/18 [History Confirmed 02/04/18] diltiazem CD 120 mg capsule,extended release 24 hr 120 mg PO QAM #30 cap 02/04/18 [Rx Confirmed 02/04/18] [facility] Medical History Hyperlipidemia (Chronic) Hypertension (Chronic) Anemia (Chronic) Asthma (Chronic) Hypothyroidism (Chronic) Osteoporosis (Chronic) Surgical History History of cataract surgery (Chronic) Family History Sister Breast cancer Social History Smoking Status: Never smoker ROS Const Const: Positive for fatigue; negative for weakness, difficulty sleeping, frequent falls, headache(s) or excessive sweating Eyes Eyes: Negative for loss of peripheral vision, transient loss of vision, blurry vision or double vision ENT ENT: Negative for headache(s), dizziness, Nosebleed/epistaxis or balance problems Cardio Chest Pain: No Edema: None Muscle aches with walking: None Resp Respiratory: Negative for SOB with activity, SOB at rest, SOB orthopnea\SOB lying down or paroxysmal nocturnal dyspnea GI GI: Negative nausea or heartburn : Negative for hematuria Musc Musc: Negative for muscle aches/ myalgia, muscle weakness, joint pain or balance problems Skin Skin: Negative non-healing lesions, unusual bruising or rash Neuro Neuro: Negative for weakness, frequent falls, blurry vision, headache(s), dizziness, lightheadedness, orthostatic symptoms or double vision Selvin Hematologic/Lymphatic: Negative for easy bruising Endo Endo: Positive for fatigue; negative for excessive sweating or increased thirst/drinking Psych Psych: Negative for anxiety or depression Allergy Allergy/Immunology: Negative for hives, Negative for rash Cardiology Exam Const Appearance: cooperative, healthy appearing and no acute distress Nutritional Appearance: well nourished Orientation: alert, oriented x3 and oriented to person Head Head: normal to inspection, atraumatic and normocephalic Nose: external nose normal Face and Sinus: face symmetric Mouth: oral mucosae normal Eyes General: appearance normal, both eyes and all related structures Eyelids: eyelids normal Conjunctivae: conjunctivae normal Pupils: PERRL and normal by confrontation EOM: EOM intact bilaterally Neck Neck: normal visual inspection and full ROM Carotids: normal carotid upstroke Chest Chest inspection: normal inspection of the chest Auscultation: Bilateral: Clear to Auscultation Cardio Palpation: normal PMI Rate: regular rate Rhythm: regular rhythm and ectopic beats Heart sounds: S1 normal and S2 normal GI GI: normal to inspection, no hepatosplenomegaly and bowel sounds present Neuro General: alert, oriented x3, awake, CN's II-XI intact bilaterally and moves all extremities Skin Skin: no rashes or lesions noted Extremities Pulses: Normal: Right Femoral Pulse, Left Femoral Pulse, Right Dorsalis Pedis Pulse, Left Dorsalis Pedis Pulse, Right Posterior Tibial Pulse, Left Posterior Tibial Pulse, Right Radial Pulse, Left Radial Pulse Lower Extremity Edema: None: Bilateral Psych Psychological: normal affect Assessment AND Plan 1. Hypertension I10 Plan . Hypertension: The patient's blood pressure is fairly well- controlled although she has episodes of rapid heart rate, and on physical exam today showed a heart rate greater than 100. EKG showed normal sinus rhythm with frequent PACs. Recommend diltiazem CD 120 mg p.o. daily, in addition to her losartan. She will return in 2 weeks time for a blood pressure and heart rate check. I do not believe she requires repeat echocardiogram as her last one was in 2014 at which time her ejection fraction was 65-70% with an RVSP of 25 mmHg. Orders Orders: 2. Hyperlipidemia E78.5 Plan 2. Hyperlipidemia: Her LDL and HDL cholesterol are at goal. Continue Pravachol. 3. Return office in 4 months. This note was generated using a voice recognition system and there may be incorrect words, spelling or punctuation that were not noted when reviewing the office note prior to saving. Orders Orders: Plan Detail Other Medications New: Follow Up +4m ([place] or LOADING MANAGER) +2 weeks (BP CHECK) Coding Level of Care Code Off vis,est,level 3 Diagnoses Hypertension I10 Hyperlipidemia E78.5 Coding Level of Care Code Off vis,est,level 3 Diagnoses Hypertension I10 Hyperlipidemia E78.5 02/04/18 1357 <Electronically signed by Louie Crawford MD> Date Louie Crawford MD Cosigner Signature: Date (if applicable) CC: Blas Redding MD 12 LEAD EKG PERFORMED Observed: 02/04/2018 Status: F Source: [place] BY GUY 1:39 PM [facility] REPOSITORY [facility] [address] [place] [address] 12 Lead EKG performed by GUY 02/04/18 1338 MR#: [id number] Acct: [id number] Name: DEISY CASTILLO Rep #: [id number] : 1935 82 From: Louie Crawford MD Attending Dr: Louie Crawford MD Status: DEP [facility] Ordering Dr: Louie Crawford MD Date: 02/04/18 Location: [facility] Sex: F C Admitted: BMS/12 Lead EKG performed by [facility] ECG Report Interpretation Sinus Rhythm WITHIN NORMAL LIMITSElectronically signed on 03/04/2018 at 09:31 by Louie Crawford 03/04/18 0936 Date Louie Crawford MD CC: Blas Redding MD Date Dictated: 02/04/188 Date Transcribed: 02/04/181337 Theater Projectionist: Signed LIVER PROFILE Collected: 01/08/2018 Status: F Source: [place] 8:36 AM [facility] REPOSITORY Order Comment: Order Date: 07/13/17 Order Info: 0788-1 - *Hepatic Function Panel Order Date: 02/13/17 Order Info: [id number] - *Lipid Profile CC PCP Comments: 12 hours fasting, may have water. TYPE CODE TESTS RESULT OUT OF RANGE REFERENCE UNITS LAB L501.1500 6.4-8.2 g/dL Normal T PROT 7.3 LAB L501.1800 3.2-5.0 g/dL Normal ALB 3.5 LAB L501.1950 2.2-4.2 g/dL Normal GLOB 3.8 LAB L501.4100 15-37 U/L Normal AST 20 LAB L501.4305 45-117 U/L High ALK P 122 LAB L501.4405 13-56 U/L Normal ALT 23 Result Comment: Please note revised ALT reference range effective 2017. LAB L501.4600 0.20-1.00 mg/dL Normal T BILI 0.70 LAB L501.4700 0.00-0.30 mg/dL Normal D BILI 0.20 Performed By: #### L500.3400 #### [facility] [place], [address] LIPID PROFILE Collected: 01/08/2018 Status: F Source: [place] 8:36 AM [facility] REPOSITORY Order Comment: Order Date: 07/13/17 Order Info: 0788-1 - *Hepatic Function Panel Order Date: 02/13/17 Order Info: 79987-6 - *Lipid Profile CC PCP Comments: 12 hours fasting, may have water. TYPE CODE TESTS RESULT OUT OF RANGE REFERENCE UNITS LAB L501.4900 200 mg/dL Normal CHOL 182 Result Comment: <200 mg/dL Desirable 200-240 mg/dL Borderline >240 mg/dL High Risk LAB L501.5000 mg/dL Normal TRIG 63 Result Comment: The drugs N-Acetylcysteine and Metamizole may falsely depress this assay. Serum Triglycerides Reference Interval Normal <150 mg/dL Borderline high 150 - 199 mg/dL High 200 - 499 mg/dL Very High > or = 500 mg/dL LAB L501.6400 mg/dL Normal HDL 92 Result Comment: The drugs N-Acetylcysteine and Metamizole may falsely depress this assay. Reference Range HDL <40 mg/dL Low HDL Cholesterol HDL >or= 60 mg/dL High HDL Cholesterol LAB L501.6500 0-130 mg/dL Normal LDL 77 LAB L501.6600 5-40 mg/dL Normal VLDL 13 Performed By: #### L500.4100 #### [facility] [address] [facility] [place], [address] Observed: 12/20/2017 Status: F Source: [place] RESPIRATORY PANEL 12:00 AM [facility] MOLECULAR REPOSITORY RP PANEL Normal Reference Range = Not Detected Copy of report sent to Infection Control Printer [id number] 12/21/17 0622 [facility] 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 INFLUENZA A Not Detected INFLUENZA A (SUBTYPE H1) Not Detected INFLUENZA A (SUBTYPE H3) Not Detected INFLUENZA B Not Detected PARAINFLUENZA 1 Not Detected PARAINFLUENZA 2 Not Detected PARAINFLUENZA 3 Not Detected PARAINFLUENZA 4 Not Detected RHINOVIRUS Not Detected RSV A Not Detected RSV B Not Detected NAAT METHOD Testing was performed using nucleic acid amplification ORGANISM 1: HUMAN META Performed By: #### M100.638 #### [facility] [address] [facility] [place], [address] ALLERGIES ALLERGIES DATE TYPE / CODE NAME / CODE REACTION SEVERITY SOURCE 09/16/2018 Drug No Known Unknown [facility] Allergy/4160 Allergies/F00 Hospital 87496(SNOMED 0769136(RXNOR Repository CT) M) ENCOUNTERS ENCOUNTERS ADMIT/DISCHARGE ACCOUNT ADMITTING ENCOUNTER LOCATION SOURCE NUMBER CLASS 09/19/2018 [id number] Ambulatory [place] 6 [facility] ing:POLAB3 Repository 09/16/2018/ [id number] Ambulatory BMSBuilding:B [place] 8 9 [facility] Repository 06/21/2018 [id number] Ambulatory [place] 5 [facility] ing:OPBI Repository 05/29/2018 [id number] Ambulatory [place] 3 [facility] ing:POLAB3 Repository 03/21/2018 [id number] Ambulatory [place] 3 [facility] ing:POLAB3 Repository 02/18/2018/ [id number] Ambulatory BMSBuilding:B [place] [address] 5 [facility] Repository 02/07/2018 [id number] Ambulatory BMSBuilding:B [place] 4 [facility] Repository 02/04/2018/ [id number] Ambulatory BMSBuilding:B [place] 8 7 [facility] Repository 02/02/2018 [id number] Ambulatory BMSBuilding:B [place] 3 [facility] Repository 01/08/2018 [id number] Ambulatory [place] 8 [facility] ing:LAB Repository 12/20/2017 [id number] Ambulatory [place] 2 [facility] ing:PSN Repository PAYERS PAYERS ENCOUNTER GUARANTOR PAYER SUBSCRIBER SOURCE 09/19/2018 DEISY [id number] Primary DEISY Ol[address]o [address] Insurance:MEDICARE [facility] [address] PART A BPolic [id number] Hospital [address]Yrt: (330) Number: Repository [phone] ) [id number] Date:2018-09-19 09/19/2018 Secondary DEISY C [place] Insurance:PYRAMID LEANDOB: Community LIFE INS [id number] Hospital COMPANYPolicy Number: Repository [id number] Date:2457-33-41[address], [place] [address]FP: 09/19/2018 Tertiary NOT GIVENUNK [place] Insurance:SELF PAY [facility] Number: Effective Repository Date:2018-09-19 09/16/2018 DEISY [id number] Primary DEISY C [place] [address] Insurance:MEDICARE LEHMANDOB: [place] PART A [facility] [id number] Hospital [address]Sad: (330) Number: Repository [phone] () [id number] Date:2018-02-04 09/16/2018 Secondary DEISY C [place] Insurance:PYRAMID LEANDOB: [facility] LIFE INS [id number] Hospital COMPANYPolicy Number: Repository [id number] Date:9031-42-60[address] [address]US: 09/16/2018 Tertiary NOT GIVENUNK [place] Insurance:SELF PAY [facility] Number: Effective Repository Date:2018-09-16 06/21/2018 DEISY [id number] Primary DEISY C [place] [address] Insurance:MEDICARE LEHMANDOB: [place] [address] PART A [facility] [id number] Hospital [address]Lrk: (330) Number: Repository [phone] () [id number] Date:2018-06-05 06/21/2018 Secondary DEISY C [place] Insurance:PYRAMID LEANDOB: [facility] LIFE [facility] [id number] Hospital COMPANYPolicy Number: Repository [id number] Date:1206-18-75DG [address] [address]IW: 06/21/2018 Tertiary NOT GIVENUNK [place] Insurance:SELF PAY [facility] Number: Effective Repository Date:2018-06-05 05/29/2018 DEISY C [id number] Primary DEISY C [place] [address] Insurance:MEDICARE LEHMANDOB: Community [address] [place] [address] PART A [facility] [id number] Hospital [address]Rje: (330) Number: Repository [phone] () [id number] Date:2018-05-29 05/29/2018 Secondary DEISY C [place] Insurance:PYRAMID LEHMANDOB: [facility] [id number] Hospital COMPANYPolicy Number: Repository [id number] Date:6820-46-85[address] [place] [address]LB: 05/29/2018 Tertiary NOT GIVENUNK [place] Insurance:SELF PAY [facility] Number: Effective Repository Date:2018-05-29 03/21/2018 DEISY C [id number] Primary DEISY C [place] [address] Insurance:MEDICARE LEHMANDOB: [address] PART A [facility] [id number] [id number]: Number: Repository [phone] [id number] () Date:2018-03-21 03/21/2018 Secondary DEISY C [place] Insurance:PYRAMID LEANDOB: [facility] [id number]. [facility] Hospitalic Number: Repository [id number] Date:0426-75-83[address]JQHCHZBF, [place] [address]AZ: 03/21/2018 Tertiary NOT GIVENUNK [place] Insurance:SELF PAY [facility] Number: Effective Repository Date:2018-03-21 02/18/2018 DEISY C [id number] Primary DEISY C [place] [address] Insurance:MEDICARE LEHMANDOB: [address] PART A [facility] [id number] Hospital [address]Mjj: Number: Repository [phone] [id number] () Date:2018-02-04 02/18/2018 Secondary DEISY C [place] Insurance:PYRAMID LEHMANDOB: [facility] [id number] Hospital COMPANYPolicy Number: Repository [id number] Date:2574-05-07WE [address]ZVMYPJKM[address] BONE [address]NK: 02/18/2018 Tertiary NOT GIVENUNK [place] Insurance:SELF PAY [facility] Number: Effective Repository Date:2018-02-18 02/07/2018 DEISY C [id number] Primary DEISY C [place] [address] Insurance:MEDICARE LEHMANDOB: [address] PART A [facility] [id number] Hospital [address]Ucm: Number: Repository [phone] [id number] (HP) Date:2018-02-07 02/07/2018 Secondary DEISY C [place] Insurance:PYRAMID LEHMANDOB: [place] [id number] [place] [address] COMPANYPolicy Number: Repository [id number] Date:1039-42-13XD [address]YYXSESBUYPH[address] BONE [address]WM: 02/07/2018 Tertiary NOT GIVENUNK [place] Insurance:SELF PAY [facility] Number: Effective Repository Date:2018-02-07 02/04/2018 DEISY C [id number] Primary DEISY C [place] [address] Insurance:MEDICARE LEHMANDOB: [address] PART A [facility] [id number] Hospital [address]Zds: Number: Repository [phone] [id number] (HP) Date:2017-10-01 02/04/2018 Secondary DEISY C [place] Insurance:PYRAMID LEHMANDOB: [facility] [id number] Hospital COMPANYPolicy Number: Repository [id number] Date:0376-94-26ZC [address]JVAIKFIQD[address] BONE [address]QR: 02/04/2018 Tertiary NOT GIVENUNK [place] Insurance:SELF PAY [facility] Number: Effective Repository Date:2017-10-01 02/02/2018 Deisy C [id number] Primary Deisy C [place] [address] Insurance:MEDICARE LehmanDOB: Community [address] [place] [address] PART A [facility] [id number] Hospital [address]Jib: Number: Repository [phone] [id number] (HP) Date:2018-02-02 02/02/2018 Secondary Deisy C [place] Insurance:PYRAMID LeUnitypoint Health Meriter HospitalOB: [facility] [id number] Hospital COMPANYPolicy Number: Repository [id number] Date:9502-80-40SJ [address] [place] [address]NA: 02/02/2018 Tertiary NOT GIVENUNK [place] Insurance:SELF PAY [facility] Number: Effective Repository Date:2018-02-02 01/08/2018 Deisy C [id number] Primary Deisy C [place] [address] Insurance:MEDICARE LehmanDOB: [address] PART A [facility] [id number] [address]Tel: Number: Repository [phone] [id number] (HP) Date:2018-01-08 01/08/2018 Secondary Deiys C [place] Insurance:PYRAMID LeUnitypoint Health Meriter HospitalOB: [facility] [id number] Hospital COMPANYPolicy Number: Repository [id number] Date:1241-72-51ZU [address]HPGMZRSVF, [place] [address]GP: 01/08/2018 Tertiary NOT GIVENUNK [place] Insurance:SELF PAY [facility] Number: Effective Repository Date:2018-01-08 12/20/2017 Deisy C [id number] Primary Deisy C [place] [address] Insurance:MEDICARE LehmanDOB: [address] PART A [facility] [id number] [place] [id number]: Number: Repository [phone] [id number] (HP) Date:2017-12-20 12/20/2017 Secondary Deisy C [place] Insurance:PYRAMID LeanDOB: [facility] [id number] Hospital COMPANYPolicy Number: Repository [id number] Date:8944-03-26XK [address]JNGNFSDSQ, [place] [address]LA: 12/20/2017 Tertiary NOT GIVENUNK [place] Insurance:SELF PAY [facility] Number: Effective Repository Date:2017-12-20
== END ==
PROVIDERS: Family Provider Family Medicine Geriatric Medicine; PCP Family Medicine Geriatric Medicine; Visit Provider Family Medicine Geriatric Medicine
DX: E55.9 Vitamin D deficiency, unspecified (principal); I10 Essential (primary) hypertension
CPT/HCPCS: 36415; 80053; 82306; 84443; 85025

== ENCOUNTER → 2019-03-24 | Outpatient (CLI) | payer MEDICARE, OTHER, SELFPAY ==
[2019-01-07 13:36] VITALS: BMI 25.7
[2019-03-24 17:23] LABS: Absolute Lymphocyte Count 1.65 X10^3/ul (0.83-4.51); Absolute Neutrophil Count 4.6 X10^3/uL (2.0-7.7); Basophil# 0.05 X10^3/uL; Basophil% 0.7 % (0-1); Eosinophils% 9.2 % (0-5); Hematocrit 38.7 % (37-47); Hemoglobin 12.1 g/dl (12.0-15.0); Lymphocyte # 1.65 X10^3/ul (4.0); Lymphocyte % 21.7 % (19-41); Mean Corp Hgb Conc 31.3 g/gl (32-36); Mean Corpuscular Hgb 29.6 pg (27.0-32.0); Mean Corpuscular Volume 94.6 fL (81-99); Monocyte# 0.59 X10^3/uL; Monocyte% 7.8 % (0-10); Neutrophil # 4.59 X10^3/uL (2.7-7.7); Neutrophil % 60.5 % (47-70); Platelet Count 200 K/mm3 (150-450); RBC Distribution Width CV 13.6 % (11.6-14.6); RBC Distribution Width SD 47.3 fl (35.1-43.9); Red Blood Count 4.09 M/mm3 (4.2-5.4); White Blood Count 7.6 K/mm3 (4.4-11.0)
[2019-03-24 17:34] LABS: POSITIVE COUNT NO; POSITIVE DIFFERENTIAL NO; POSITIVE MORPHOLOGY NO
[2019-03-24 17:53] LABS: ALB/GLOB Ratio 0.8 RATIO (0.9-2.4); AST(SGOT) 25 U/L (15-37); Alanine Aminotransfer ALT/SGPT 25 U/L (13-56); Albumin, Serum 3.4 g/dL (3.2-5.0); Alkaline Phosphatase 123 U/L (45-117); Anion Gap 11 (5-15); BUN 16 mg/dL (7-18); BUN/Creat Ratio 14.4 RATIO (10-20); Calcium,Total 9.2 mg/dL (8.5-10.1); Chloride 100 mmol/L (98-107); Creatinine, Serum 1.11 mg/dL (0.55-1.02); EST Glomerular Filtration Rate 50 mL/min (>60); Est Glom Filt Rate - Afr Amer 60 mL/min (>60); Globulin 4.2 g/dL (2.2-4.2); Glucose 124 mg/dL (74-106); Potassium 4.3 mmol/L (3.5-5.1); Protein, Total 7.6 g/dL (6.4-8.2); Sodium Level 139 mmol/L (136-145); Thyroid Stim Hormone (TSH) 1.46 uIU/mL (0.358-3.74)
== END | disposition home or self-care (01) ==
LOC: POLAB3 12:56
PROVIDERS: Family Provider Family Medicine Geriatric Medicine; PCP Family Medicine Geriatric Medicine; Visit Provider Family Medicine Geriatric Medicine
DX: E55.9 Vitamin D deficiency, unspecified (principal); I10 Essential (primary) hypertension
CPT/HCPCS: 36415; 80053; 82306; 84443; 85025

== ENCOUNTER → 2019-04-21 10:01 | Outpatient (CLI) | payer MEDICARE, OTHER, SELFPAY ==
[2019-01-07 13:36] VITALS: BMI 25.7
--- NOTE | 2019-04-21 10:07 | RAD_ITS ---
STUDY: X-RAY - ABDOMEN/PELVIS REASON FOR EXAM: Female, 83 years old. Diarrhea. TECHNIQUE: Single AP view of the abdomen / pelvis. COMPARISON: None. FINDINGS: Normal visualized lung bases. There is an unremarkable bowel gas pattern. There is no demonstrated free abdominal air. The visualized liver, spleen and kidneys are grossly normal in size and morphology. Normal soft tissue structures. There are diffuse degenerative changes of the visualized lumbar spine. RAD/Abdomen Single View IMPRESSION: No dilated loops of bowel or evidence for obstruction. Electronically Signed: Jose Olson MD at 22:30 EDT , Service support ,
== END ==
PROVIDERS: Family Provider Family Medicine Geriatric Medicine; PCP Family Medicine Geriatric Medicine; Referring Provider Family Medicine Geriatric Medicine; Visit Provider Family Medicine Geriatric Medicine
DX: R19.7 Diarrhea, unspecified (principal)
CPT/HCPCS: 74018

== ENCOUNTER → 2019-04-22 13:45 | Outpatient (CLI) | payer MEDICARE, OTHER, SELFPAY ==
[2019-01-07 13:36] VITALS: BMI 25.7
== END ==
PROVIDERS: Family Provider Family Medicine Geriatric Medicine; PCP Family Medicine Geriatric Medicine; Visit Provider Family Medicine Geriatric Medicine
DX: R19.7 Diarrhea, unspecified (principal); B96.89 Other specified bacterial agents as the cause of diseases classified elsewhere
CPT/HCPCS: 87493

== ENCOUNTER → 2019-07-01 13:19 | Outpatient (CLI) | payer MEDICARE, OTHER, SELFPAY ==
[2019-01-07 13:36] VITALS: BMI 25.7
--- NOTE | 2019-07-01 13:20 | BI_ITS ---
MAMMOGRAPHY - BILATERAL SCREENING REASON FOR EXAM: Female, 83 years old. Routine annual screening examination. PERTINENT HISTORY: Daughter with breast cancer. Sister with breast cancer. TECHNIQUE: Digital bilateral breast drew (3D mammographic acquisition) in the CC and MLO projections. 2-D mediolateral oblique (MLO) and craniocaudad (CC) views of both breasts were obtained. CAD: Full Field Digital Mammography with Computer Added Detection was performed. COMPARISON: Comparison is made with prior study dated June 21, 2018 and June 20, 2017. FINDINGS: Breast Composition: The breasts are heterogeneously dense, which may obscure small masses. There are no dominant masses or suspicious calcifications. No other significant abnormalities are identified. There has been no significant change since the prior study. BI/SCREEN MAMM (CAD) W/DREW BILAT IMPRESSION: Stable bilateral screening mammogram. Yearly follow-up mammogram recommended. (A) ASSESSMENT CATEGORY: BIRADS Category 1: Negative. A letter regarding these results will be sent to the patient by the facility within 30 days. Approximately 10% of breast cancers are not detected by mammography. A normal mammogram should not delay biopsy of a clinically suspicious abnormality. [id number] Electronically Signed: Jose Alberto Houser, at 15:26 EDT , Service support ,
== END ==
PROVIDERS: Family Provider Family Medicine Geriatric Medicine; PCP Family Medicine Geriatric Medicine; Referring Provider Family Medicine Geriatric Medicine; Visit Provider Family Medicine Geriatric Medicine
DX: Z12.31 Encounter for screening mammogram for malignant neoplasm of breast (principal); Z78.0 Asymptomatic menopausal state; Z80.3 Family history of malignant neoplasm of breast
CPT/HCPCS: 77063; 77067

== ENCOUNTER → 2019-08-18 | Outpatient (CLI) | payer MEDICARE, OTHER, SELFPAY ==
[2019-07-31 14:04] VITALS: BMI 26.9
--- NOTE | 2019-08-18 14:02 | ECHOD_ITS ---
Reason For Study: HTN Procedure This was a 2D Doppler, Color Flow transthoracic echocardiogram. Exam performed in department. Left Ventricle Normal size and thickness. The estimated ejection fraction is 75 %. Stage 1 diastolic dysfunction. No regional wall motion abnormalities noted. Right Ventricle Normal size and thickness. Normal systolic function. Atria Normal left atrium. Normal right atrium. Normal atrial septum. Mitral Valve The mitral valve is structurally normal. No prolapse or stenosis seen. Moderate mitral annular calcification extending into the posterior leaflet. Tricuspid Valve Normal tricuspid valve. Mild (1+) tricuspid valve insufficiency. Right ventricular systolic pressure estimated to be 34 mmHg. Aortic Valve Normal aortic valve. Trisinus/trileaflet aortic valve. Pulmonic Valve Normal pulmonic valve. Great Vessels Normal aortic root. Normal arch. Normal inferior vena cava. Inferior vena cava collapse with sniff. Pericardium/Pleural No pericardial effusion. MMode/2D Measurements & Calculations LVIDd: 4.0 cm IVSd: 0.84 cm Ao root diam: 3.4 cm LVIDs: 2.6 cm LVPWd: 0.89 cm RVDd: 2.9 cm FS: 35.4 % LAV(MOD-bp): 32.6 ml LVAd ap4: 18.4 cm2 SV(MOD-sp4): 27.8 ml LAV(MOD-bp) Indexed: 19.5 ml/m2 EDV(MOD-sp4): 40.9 ml LAV(MOD-sp2): 33.7 ml EDV(sp4-el): 42.7 ml LAV(MOD-sp4): 30.4 ml LVAs ap4: 9.1 cm2 ESV(MOD-sp4): 13.1 ml ESV(sp4-el): 13.0 ml EF(MOD-sp4): 67.9 % EF(sp4-el): 69.5 % SV(sp4-el): 29.7 ml LA A4 area: 13.9 cm2 LA dimension(2D): 4.1 cm RA A4 area: 12.5 cm2 Doppler Measurements & Calculations Lat Peak E' Sánchez: 7.6 cm/sec Med Peak E' Sánchez: 5.3 cm/sec MV V2 max: 77.8 cm/sec MV max P.4 mmHg MV V2 mean: 51.6 cm/sec MV mean P.2 mmHg MV V2 VTI: 18.4 cm Ao V2 max: 182.1 cm/sec LV V1 max: 123.4 cm/sec TR max sánchez: 262.8 cm/sec Ao max P.3 mmHg LV V1 max P.1 mmHg TR max P.7 mmHg Ao V2 mean: 124.1 cm/sec LV V1 mean P.4 mmHg Ao mean P.9 mmHg LV V1 mean: 87.9 cm/sec Ao V2 VTI: 32.2 cm LV V1 VTI: 23.7 cm MV P1/2t-pr_phl: 57.3 msec Interpretation Summary The estimated ejection fraction is 75 %. Stage 1 diastolic dysfunction. Mild (1+) tricuspid valve insufficiency. Right ventricular systolic pressure estimated to be 34 mmHg. Compared to echo report dated 06/16/2015, LV function has remained the same, but RVSP has increased from 25 to 34 mm Hg. Ordering Physician: Louie Crawford Referring Physician: KATELIN PATRICK CHI Performed By: Aspen Massey, LUKAS, RVT
== END | disposition home or self-care (01) ==
LOC: CVS 14:01
PROVIDERS: Family Provider Family Medicine Geriatric Medicine; PCP Family Medicine Geriatric Medicine; Referring Provider Internal Medicine Cardiovascular Disease; Visit Provider Internal Medicine Cardiovascular Disease
DX: I10 Essential (primary) hypertension (principal); I36.1 Nonrheumatic tricuspid (valve) insufficiency; E78.5 Hyperlipidemia, unspecified
CPT/HCPCS: 93306

== ENCOUNTER → 2019-09-22 14:08 | Outpatient (CLI) | payer MEDICARE, OTHER, SELFPAY ==
[2019-07-31 14:04] VITALS: BMI 26.9
[2019-09-22 17:37] LABS: Absolute Neutrophil Count 3.8 X10^3/uL (2.0-7.7); Basophil# 0.05 X10^3/uL; Basophil% 0.8 % (0-1); Eosinophils% 10.9 % (0-5); Hematocrit 40.1 % (37-47); Hemoglobin 12.3 g/dL (12.0-15.0); Lymphocyte % 18.7 % (19-41); Mean Corp Hgb Conc 30.7 g/dL (32-36); Mean Corpuscular Hgb 29.5 pg (27.0-32.0); Mean Corpuscular Volume 96.2 fL (81-99); Mean Platelet Vol. 12.2 fl (6.2-12.0); Monocyte# 0.66 X10^3/uL; Monocyte% 10.3 % (0-10); NRBC Flagged by Analyzer 0 % (0-5); Neutrophil % 59.1 % (47-70); Platelet Count 183 K/mm3 (150-450); RBC Distribution Width SD 49.2 fl (35.1-43.9); Red Blood Count 4.17 M/mm3 (4.2-5.4); White Blood Count 6.4 K/mm3 (4.4-11.0)
[2019-09-22 17:59] LABS: ALB/GLOB Ratio 0.9 RATIO (0.9-2.4); AST(SGOT) 19 U/L (15-37); Alanine Aminotransfer ALT/SGPT 20 U/L (13-56); Albumin, Serum 3.4 g/dL (3.2-5.0); Alkaline Phosphatase 141 U/L (45-117); Anion Gap 8 (5-15); BUN 28 mg/dL (7-18); BUN/Creat Ratio 28.8 RATIO (10-20); Calcium,Total 8.7 mg/dL (8.5-10.1); Chloride 100 mmol/L (98-107); Creatinine, Serum 0.97 mg/dL (0.55-1.02); EST Glomerular Filtration Rate 58 mL/min (>60); Est Glom Filt Rate - Afr Amer 70 mL/min (>60); Globulin 3.8 g/dL (2.2-4.2); Glucose 108 mg/dL (74-106); Potassium 4.2 mmol/L (3.5-5.1); Protein, Total 7.2 g/dL (6.4-8.2); Sodium Level 137 mmol/L (136-145); Thyroid Stim Hormone (TSH) 1.25 uIU/mL (0.358-3.74)
[2019-09-23 10:32] LABS: Vitamin D,25 Hydroxy 83.6 ng/mL (29.95-100.01)
== END ==
PROVIDERS: Family Provider Family Medicine Geriatric Medicine; PCP Family Medicine Geriatric Medicine; Visit Provider Family Medicine Geriatric Medicine
DX: E55.9 Vitamin D deficiency, unspecified (principal); I10 Essential (primary) hypertension
CPT/HCPCS: 36415; 80053; 82306; 84443; 85025

== ENCOUNTER → 2020-01-02 13:25 | Outpatient (CLI) | payer MEDICARE, OTHER, SELFPAY ==
[2019-12-22 14:21] VITALS: BMI 26.6
--- NOTE | 2020-01-02 13:40 | RAD_ITS ---
STUDY: X-RAY CHEST REASON FOR EXAM: Female, 84 years old. wheezing, cough, chills without fever TECHNIQUE: PA and lateral views of the chest. COMPARISON: None. FINDINGS: The lungs are clear and expanded. There is no demonstrated pleural abnormality. Normal size heart. Normal mediastinum and ana maria. Normal visualized pulmonary arteries. There is atherosclerotic calcification of the aortic arch with tortuosity. There is demineralization of the osseous structures. There is degenerative osteoarthritis of the bilateral shoulders. There is no demonstrated abnormality of the visualized soft tissue structures of the upper abdomen. RAD/Chest PA and Lateral IMPRESSION: No acute cardiopulmonary disease. Electronically Signed: Selam Granados MD at 1:39 EDT , Service support ,
== END ==
PROVIDERS: PCP Family Medicine Geriatric Medicine; Referring Provider Family Medicine Geriatric Medicine; Visit Provider Family Medicine Geriatric Medicine
DX: R06.2 Wheezing (principal); R68.83 Chills (without fever)
CPT/HCPCS: 71046; 87804; 87807

== ENCOUNTER → 2020-03-25 13:37 | Outpatient (CLI) | payer MEDICARE, OTHER, SELFPAY ==
[2019-12-22 14:21] VITALS: BMI 26.6
[2020-03-25 14:13] LABS: Absolute Lymphocyte Count 1.32 X10^3/uL (0.83-4.51); Absolute Neutrophil Count 5.3 X10^3/uL (2.0-7.7); Basophil# 0.06 X10^3/uL; Basophil% 0.8 % (0-1); Eosinophil# 0.36 X10^3/uL; Eosinophils% 4.7 % (0-5); Hematocrit 41.6 % (37-47); Hemoglobin 12.8 g/dL (12.0-15.0); Lymphocyte # 1.32 X10^3/ul (4.0); Lymphocyte % 17.2 % (19-41); Mean Corp Hgb Conc 30.8 g/dL (32-36); Mean Corpuscular Hgb 29.3 pg (27.0-32.0); Mean Corpuscular Volume 95.2 fL (81-99); Mean Platelet Vol. 11.9 fl (6.2-12.0); Monocyte% 7.8 % (0-10); NRBC Flagged by Analyzer 0 % (0-5); Neutrophil # 5.31 X10^3/uL (2.7-7.7); Neutrophil % 69.2 % (47-70); Platelet Count 220 K/mm3 (150-450); RBC Distribution Width CV 14.1 % (11.6-14.6); RBC Distribution Width SD 49.2 fl (35.1-43.9); Red Blood Count 4.37 M/mm3 (4.2-5.4); White Blood Count 7.7 K/mm3 (4.4-11.0)
[2020-03-25 14:27] LABS: Vitamin D,25 Hydroxy 83.1 ng/mL
[2020-03-25 14:33] LABS: ALB/GLOB Ratio 0.7 RATIO (0.9-2.4); AST(SGOT) 24 U/L (15-37); Alanine Aminotransfer ALT/SGPT 21 U/L (13-56); Albumin, Serum 3.2 g/dL (3.2-5.0); Alkaline Phosphatase 141 U/L (45-117); Anion Gap 9 (5-15); BUN 17 mg/dL (7-18); BUN/Creat Ratio 15.5 RATIO (10-20); Calcium,Total 9.1 mg/dL (8.5-10.1); Chloride 98 mmol/L (98-107); EST Glomerular Filtration Rate 50 mL/min (>60); Est Glom Filt Rate - Afr Amer 61 mL/min (>60); Globulin 4.3 g/dL (2.2-4.2); Glucose 129 mg/dL (74-106); Potassium 4.2 mmol/L (3.5-5.1); Protein, Total 7.5 g/dL (6.4-8.2); Sodium Level 137 mmol/L (136-145); Thyroid Stim Hormone (TSH) 1.17 uIU/mL (0.358-3.74)
== END ==
PROVIDERS: PCP Family Medicine Geriatric Medicine; Visit Provider Family Medicine Geriatric Medicine
DX: E55.9 Vitamin D deficiency, unspecified (principal); I10 Essential (primary) hypertension
CPT/HCPCS: 36415; 80053; 82306; 84443; 85025

== ENCOUNTER → 2020-06-01 05:30 | Outpatient (REF) | payer MEDICARE, OTHER, SELFPAY ==
[2019-12-22 14:21] VITALS: BMI 26.6
[2020-06-01 08:02] LABS: Thyroid Stim Hormone (TSH) 3.42 uIU/mL (0.358-3.74)
== END ==
LOC: OLS.WHLTSB 05:30
PROVIDERS: PCP Family Medicine Geriatric Medicine; Referring Provider Family Medicine Geriatric Medicine; Visit Provider Family Medicine Geriatric Medicine
DX: E03.9 Hypothyroidism, unspecified (principal)
CPT/HCPCS: 36415; 84443

== ENCOUNTER → 2020-06-02 11:04 | Outpatient (CLI) | payer MEDICARE, OTHER, SELFPAY ==
[2019-12-22 14:21] VITALS: BMI 26.6
[2020-06-02 11:17] LABS: Absolute Lymphocyte Count 0.84 X10^3/uL (0.83-4.51); Absolute Neutrophil Count 4.8 X10^3/uL (2.0-7.7); Basophil# 0.07 X10^3/uL; Eosinophil# 0.44 X10^3/uL; Eosinophils% 6.5 % (0-5); Hematocrit 38.4 % (37-47); Hemoglobin 12.1 g/dL (12.0-15.0); Lymphocyte # 0.84 X10^3/ul (4.0); Lymphocyte % 12.5 % (19-41); Mean Corp Hgb Conc 31.5 g/dL (32-36); Mean Corpuscular Volume 95.3 fL (81-99); Mean Platelet Vol. 11.5 fl (6.2-12.0); Monocyte# 0.62 X10^3/uL; Monocyte% 9.2 % (0-10); NRBC Flagged by Analyzer 0 % (0-5); Neutrophil # 4.75 X10^3/uL (2.7-7.7); Neutrophil % 70.5 % (47-70); Platelet Count 188 K/mm3 (150-450); RBC Distribution Width CV 13.2 % (11.6-14.6); RBC Distribution Width SD 46.3 fl (35.1-43.9); Red Blood Count 4.03 M/mm3 (4.2-5.4); White Blood Count 6.7 K/mm3 (4.4-11.0)
[2020-06-02 12:00] LABS: ALB/GLOB Ratio 0.8 RATIO (0.9-2.4); AST(SGOT) 18 U/L (15-37); Alanine Aminotransfer ALT/SGPT 15 U/L (13-56); Albumin, Serum 2.8 g/dL (3.2-5.0); Alkaline Phosphatase 107 U/L (45-117); Anion Gap 7 (5-15); BUN 9 mg/dL (7-18); BUN/Creat Ratio 10.5 RATIO (10-20); Chloride 104 mmol/L (98-107); Creatinine, Serum 0.86 mg/dL (0.55-1.02); EST Glomerular Filtration Rate 67 mL/min (>60); Est Glom Filt Rate - Afr Amer 81 mL/min (>60); Globulin 3.5 g/dL (2.2-4.2); Glucose 92 mg/dL (74-106); Potassium 3.4 mmol/L (3.5-5.1); Protein, Total 6.3 g/dL (6.4-8.2); Sodium Level 139 mmol/L (136-145); Thyroid Stim Hormone (TSH) 1.86 uIU/mL (0.358-3.74)
== END ==
PROVIDERS: PCP Family Medicine Geriatric Medicine; Visit Provider Family Medicine Geriatric Medicine
DX: G93.9 Disorder of brain, unspecified (principal); R53.83 Other fatigue
CPT/HCPCS: 36415; 80053; 84443; 85025

== ENCOUNTER → 2020-06-02 11:37 | Outpatient (CLI) | payer MEDICARE, OTHER, SELFPAY ==
[2019-12-22 14:21] VITALS: BMI 26.6
--- NOTE | 2020-06-02 11:44 | CT_ITS ---
STUDY: CT BRAIN WITHOUT CONTRAST REASON FOR EXAM: Female, 84 years old. ENCEPHALOPATHY RADIATION DOSAGE (If Supplied By Facility): CTDIvol = ( 44.99 ) mGy, DLP = ( 779.24 ) mGycm TECHNIQUE: Transaxial CT imaging of the brain was performed without administration of intravenous contrast material. Individualized dose optimization techniques were used for this CT. COMPARISON: No relevant priors. FINDINGS: Normal soft tissue structures. Normal calvarium. There is mild cerebral atrophy with widening of the extra-axial spaces and ventricular dilatation. There are areas of decreased attenuation within the white matter tracts of the supratentorial brain, consistent with microvascular disease changes. Normal basal ganglia and thalami. Normal brainstem. Normal cerebellum. There is no intracranial hemorrhage. There are no findings of an acute ischemic infarction. Mucosal thickening of the maxillary sinuses as well as the ethmoid sinus. Mild mucosal thickening of the left sphenoid sinus. CT/Brain/Head without Contrast IMPRESSION: Chronic involutional changes of the brain. Sinusitis. Electronically Signed: Jose Alberto Houser, at 12:06 EDT , Service support ,
--- NOTE | 2020-06-02 11:44 | RAD_ITS ---
STUDY: X-RAY CHEST REASON FOR EXAM: Female, 84 years old. Cough TECHNIQUE: PA and lateral views of the chest. COMPARISON: Comparison is made with prior study of 01/02/2020. FINDINGS: Hyperinflation. Mild increased markings at the left lung base suggests some mild scarring. There is no demonstrated pleural abnormality. Normal size heart. Calcified bilateral hilar lymph nodes. Normal visualized pulmonary arteries. There is atherosclerotic calcification of the aortic arch with tortuosity. There are diffuse degenerative changes of the visualized thoracic spine. Normal visualized ribs, clavicles, and shoulders. There is no demonstrated abnormality of the visualized soft tissue structures of the upper abdomen. RAD/Chest PA and Lateral IMPRESSION: Hyperinflation. Findings suggestive of mild scarring at the left lung base. Electronically Signed: Jose Alberto Houser, at 15:55 EDT , Service support ,
--- NOTE | 2020-06-02 11:50 | RAD_ITS ---
STUDY: X-RAY - ABDOMEN/PELVIS REASON FOR EXAM: Female, 84 years old. Fecal impaction TECHNIQUE: Single AP view of the abdomen / pelvis. COMPARISON: Comparison is made with prior examination dated 04/21/2019. FINDINGS: There is an abundance of fecal material throughout the colon. There is a 5.3 mm calcification in the right mid abdomen suggestive of a right renal calculus. Normal soft tissue structures. There are diffuse degenerative changes of the visualized lumbar spine. Dextroscoliosis. RAD/Abdomen Single View IMPRESSION: Large amount of fecal material is seen in the colon. Findings suggestive of a right renal calculus. Electronically Signed: Jose Alberto Houser, at 15:47 EDT , Service support ,
== END ==
PROVIDERS: PCP Family Medicine Geriatric Medicine; Referring Provider Family Medicine Geriatric Medicine; Visit Provider Family Medicine Geriatric Medicine
DX: G93.9 Disorder of brain, unspecified (principal); R53.83 Other fatigue; R05 Cough; K56.41 Fecal impaction
CPT/HCPCS: 36415; 70450; 71046; 74018; 80053; 84443; 85025

== ENCOUNTER → 2020-08-10 17:09 | Outpatient (CLI) | payer MEDICARE, OTHER, SELFPAY ==
[2019-12-22 14:21] VITALS: BMI 26.6
== END ==
PROVIDERS: PCP Family Medicine Geriatric Medicine; Referring Provider Family Medicine Geriatric Medicine; Visit Provider Family Medicine Geriatric Medicine
DX: R06.89 Other abnormalities of breathing (principal)
CPT/HCPCS: 87635; C9803; U0003

== ENCOUNTER → 2020-11-24 05:00 | Outpatient (REF) | payer MEDICARE, OTHER, SELFPAY ==
[2020-09-23 14:49] VITALS: BMI 25.5
[2020-11-24 07:56] LABS: Absolute Neutrophil Count 2.7 X10^3/uL (2.0-7.7); Basophil# 0.06 X10^3/uL; Eosinophil# 0.95 X10^3/uL; Eosinophils% 15.9 % (0-5); Hematocrit 36.7 % (37-47); Hemoglobin 11.6 g/dL (12.0-15.0); Mean Corp Hgb Conc 31.6 g/dL (32-36); Mean Corpuscular Hgb 29.7 pg (27.0-32.0); Mean Corpuscular Volume 94.1 fL (81-99); Mean Platelet Vol. 12.3 fl (6.2-12.0); Monocyte# 0.73 X10^3/uL; Monocyte% 12.2 % (0-10); NRBC Flagged by Analyzer 0 % (0-5); Neutrophil # 2.74 X10^3/uL (2.7-7.7); Neutrophil % 45.7 % (47-70); Platelet Count 173 K/mm3 (150-450); RBC Distribution Width CV 13.8 % (11.6-14.6); RBC Distribution Width SD 47.6 fl (35.1-43.9)
[2020-11-24 08:31] LABS: Vitamin D,25 Hydroxy 86.3 ng/mL
[2020-11-24 08:35] LABS: ALB/GLOB Ratio 0.9 RATIO (0.9-2.4); AST(SGOT) 18 U/L (15-37); Alanine Aminotransfer ALT/SGPT 14 U/L (13-56); Albumin, Serum 2.8 g/dL (3.2-5.0); Alkaline Phosphatase 114 U/L (45-117); Anion Gap 2 (5-15); BUN 16 mg/dL (7-18); BUN/Creat Ratio 18.4 RATIO (10-20); Calcium,Total 8.7 mg/dL (8.5-10.1); Chloride 105 mmol/L (98-107); Cholesterol 206 mg/dL (200); Creatinine, Serum 0.87 mg/dL (0.55-1.02); EST Glomerular Filtration Rate 66 mL/min (>60); Est Glom Filt Rate - Afr Amer 79 mL/min (>60); Globulin 3.2 g/dL (2.2-4.2); Glucose 80 mg/dL (74-106); High Density Lipoprotein 67 mg/dL; Potassium 3.8 mmol/L (3.5-5.1); Sodium Level 138 mmol/L (136-145); Thyroid Stim Hormone (TSH) 0.78 uIU/mL (0.358-3.74); Triglycerides 60 mg/dL; Very Low Density Lipoprotein 12 mg/dL (5-40)
== END ==
LOC: OLS.WHLTSB 05:00
PROVIDERS: PCP Family Medicine Geriatric Medicine; Referring Provider Family Medicine Geriatric Medicine; Visit Provider Family Medicine Geriatric Medicine
DX: E03.9 Hypothyroidism, unspecified (principal); J45.909 Unspecified asthma, uncomplicated; J01.80 Other acute sinusitis; M62.81 Muscle weakness (generalized); R26.2 Difficulty in walking, not elsewhere classified; R27.8 Other lack of coordination; E78.5 Hyperlipidemia, unspecified; E55.9 Vitamin D deficiency, unspecified; Z74.1 Need for assistance with personal care
CPT/HCPCS: 36415; 80053; 80061; 82306; 84443; 85025

== ENCOUNTER → 2021-03-31 11:42 | Outpatient (CLI) | payer MEDICARE, OTHER, SELFPAY ==
[2020-09-23 14:49] VITALS: BMI 25.5
[2021-03-31 12:29] LABS: Absolute Lymphocyte Count 1.18 X10^3/uL (0.83-4.51); Absolute Neutrophil Count 4.4 X10^3/uL (2.0-7.7); Basophil# 0.08 X10^3/uL; Basophil% 1.1 % (0-1); Eosinophils% 9.7 % (0-5); Hematocrit 36.3 % (37-47); Hemoglobin 11.5 g/dL (12.0-15.0); Lymphocyte # 1.18 X10^3/ul (0.83-4.51); Lymphocyte % 16.4 % (19-41); Mean Corp Hgb Conc 31.7 g/dL (32-36); Mean Corpuscular Hgb 30.3 pg (27.0-32.0); Mean Corpuscular Volume 95.8 fL (81-99); Mean Platelet Vol. 11.7 fl (6.2-12.0); Monocyte# 0.83 X10^3/uL; Monocyte% 11.5 % (0-10); NRBC Flagged by Analyzer 0 % (0-5); Neutrophil # 4.38 X10^3/uL (2.7-7.7); Neutrophil % 60.9 % (47-70); Platelet Count 199 K/mm3 (150-450); RBC Distribution Width CV 13.6 % (11.6-14.6); RBC Distribution Width SD 48.1 fl (35.1-43.9); Red Blood Count 3.79 M/mm3 (4.2-5.4); White Blood Count 7.2 K/mm3 (4.4-11.0)
[2021-03-31 12:55] LABS: Vitamin D,25 Hydroxy 94.4 ng/mL
[2021-03-31 13:04] LABS: ALB/GLOB Ratio 0.9 RATIO (0.9-2.4); AST(SGOT) 15 U/L (15-37); Alanine Aminotransfer ALT/SGPT 12 U/L (13-56); Albumin, Serum 3.2 g/dL (3.2-5.0); Alkaline Phosphatase 129 U/L (45-117); Anion Gap 2 (5-15); BUN 18 mg/dL (7-18); BUN/Creat Ratio 19.1 RATIO (10-20); Chloride 101 mmol/L (98-107); Creatinine, Serum 0.94 mg/dL (0.55-1.02); EST Glomerular Filtration Rate 60 mL/min (>60); Est Glom Filt Rate - Afr Amer 73 mL/min (>60); Globulin 3.6 g/dL (2.2-4.2); Glucose 63 mg/dL (74-106); Potassium 4.9 mmol/L (3.5-5.1); Protein, Total 6.8 g/dL (6.4-8.2); Sodium Level 135 mmol/L (136-145); Thyroid Stim Hormone (TSH) 1.68 uIU/mL (0.358-3.74)
== END ==
PROVIDERS: PCP Family Medicine Geriatric Medicine; Visit Provider Family Medicine Geriatric Medicine
DX: E55.9 Vitamin D deficiency, unspecified (principal); I10 Essential (primary) hypertension
CPT/HCPCS: 36415; 80053; 82306; 84443; 85025

== ENCOUNTER → 2021-06-22 05:00 | Outpatient (REF) | payer MEDICARE, OTHER, SELFPAY ==
[2021-06-22 07:57] LABS: Absolute Lymphocyte Count 1.45 X10^3/uL (0.83-4.51); Absolute Neutrophil Count 3.6 X10^3/uL (2.0-7.7); Basophil# 0.06 X10^3/uL; Basophil% 0.9 % (0-1); Eosinophil# 0.79 X10^3/uL; Eosinophils% 11.8 % (0-5); Hematocrit 36.6 % (37-47); Hemoglobin 11.4 g/dL (12.0-15.0); Lymphocyte # 1.45 X10^3/ul (0.83-4.51); Lymphocyte % 21.6 % (19-41); Mean Corp Hgb Conc 31.1 g/dL (32-36); Mean Corpuscular Hgb 30.2 pg (27.0-32.0); Mean Corpuscular Volume 96.8 fL (81-99); Mean Platelet Vol. 11.8 fl (6.2-12.0); Monocyte# 0.84 X10^3/uL; Monocyte% 12.5 % (0-10); NRBC Flagged by Analyzer 0 % (0-5); Neutrophil # 3.55 X10^3/uL (2.7-7.7); Neutrophil % 52.9 % (47-70); Platelet Count 180 K/mm3 (150-450); RBC Distribution Width CV 13.3 % (11.6-14.6); RBC Distribution Width SD 47.8 fl (35.1-43.9); Red Blood Count 3.78 M/mm3 (4.2-5.4); White Blood Count 6.7 K/mm3 (4.4-11.0)
[2021-06-22 07:59] LABS: Anion Gap 1 (5-15); BUN 20 mg/dL (7-18); BUN/Creat Ratio 20.4 RATIO (10-20); Calcium,Total 9.1 mg/dL (8.5-10.1); Chloride 102 mmol/L (98-107); Creatinine, Serum 0.98 mg/dL (0.55-1.02); EST Glomerular Filtration Rate 57 mL/min (>60); Est Glom Filt Rate - Afr Amer 69 mL/min (>60); Glucose 75 mg/dL (74-106); Potassium 4.6 mmol/L (3.5-5.1); Sodium Level 137 mmol/L (136-145)
[2021-06-24 07:16] LABS: Thyroid Stim Hormone (TSH) 1.85 uIU/mL (0.358-3.74)
== END ==
LOC: OLS.WHLTSB 05:00
PROVIDERS: PCP Family Medicine Geriatric Medicine; Visit Provider Internal Medicine
DX: R53.83 Other fatigue (principal); J45.909 Unspecified asthma, uncomplicated; R52 Pain, unspecified; J01.80 Other acute sinusitis; M62.81 Muscle weakness (generalized); R26.2 Difficulty in walking, not elsewhere classified; R27.8 Other lack of coordination; E03.9 Hypothyroidism, unspecified
CPT/HCPCS: 36415; 80048; 84443; 85025

== ENCOUNTER → 2021-09-28 15:54 | Outpatient (REF) | payer MEDICARE, OTHER, SELFPAY | LOC: OLS.WHLTSB 15:54 | PROVIDERS: PCP Family Medicine Geriatric Medicine; Referring Provider Family Medicine; Visit Provider Family Medicine | DX: Z03.818 Encounter for observation for suspected exposure to other biological agents ruled out (principal) | CPT/HCPCS: 87635; U0005; U0003 ==

== ENCOUNTER → 2021-12-20 | Outpatient (REF) | payer MEDICARE, OTHER, SELFPAY ==
[2021-12-20 06:06] LABS: Absolute Lymphocyte Count 1.48 X10^3/uL (0.83-4.51); Absolute Neutrophil Count 3.2 X10^3/uL (2.0-7.7); Basophil# 0.06 X10^3/uL; Basophil% 0.9 % (0-1); Eosinophil# 0.86 X10^3/uL; Eosinophils% 13.6 % (0-5); Hematocrit 34.7 % (37-47); Hemoglobin 11.3 g/dL (12.0-15.0); Lymphocyte # 1.48 X10^3/ul (0.83-4.51); Lymphocyte % 23.4 % (19-41); Mean Corp Hgb Conc 32.6 g/dL (32-36); Mean Corpuscular Hgb 30.5 pg (27.0-32.0); Mean Corpuscular Volume 93.8 fL (81-99); Mean Platelet Vol. 11.7 fl (6.2-12.0); Monocyte# 0.71 X10^3/uL; Monocyte% 11.2 % (0-10); NRBC Flagged by Analyzer 0 % (0-5); Neutrophil # 3.21 X10^3/uL (2.7-7.7); Neutrophil % 50.7 % (47-70); Platelet Count 194 K/mm3 (150-450); RBC Distribution Width CV 13.4 % (11.6-14.6); White Blood Count 6.3 K/mm3 (4.4-11.0)
[2021-12-20 06:52] LABS: ALB/GLOB Ratio 0.9 RATIO (0.9-2.4); AST(SGOT) 14 U/L (15-37); Alanine Aminotransfer ALT/SGPT 15 U/L (13-56); Albumin, Serum 2.9 g/dL (3.2-5.0); Alkaline Phosphatase 122 U/L (45-117); Anion Gap 2 (5-15); BUN 26 mg/dL (7-18); BUN/Creat Ratio 26.4 RATIO (10-20); Calcium,Total 8.8 mg/dL (8.5-10.1); Chloride 104 mmol/L (98-107); Cholesterol 206 mg/dL (200); Creatinine, Serum 0.98 mg/dL (0.55-1.02); EST Glomerular Filtration Rate 57 mL/min (>60); Est Glom Filt Rate - Afr Amer 69 mL/min (>60); Globulin 3.4 g/dL (2.2-4.2); Glucose 94 mg/dL (74-106); High Density Lipoprotein 68 mg/dL; Potassium 4.3 mmol/L (3.5-5.1); Protein, Total 6.3 g/dL (6.4-8.2); Sodium Level 137 mmol/L (136-145); Thyroid Stim Hormone (TSH) 2.73 uIU/mL (0.358-3.74); Triglycerides 64 mg/dL; Very Low Density Lipoprotein 13 mg/dL (5-40)
[2021-12-20 08:22] LABS: Vitamin B12 734 pg/mL (211-911)
== END | disposition home or self-care (01) ==
LOC: OLS.WHLTCC 05:00
PROVIDERS: PCP Internal Medicine; Visit Provider Internal Medicine
DX: J45.909 Unspecified asthma, uncomplicated (principal); N18.30 Chronic kidney disease, stage 3 unspecified; K21.9 Gastro-esophageal reflux disease without esophagitis; K59.09 Other constipation; I95.89 Other hypotension; M62.561 Muscle wasting and atrophy, not elsewhere classified, right lower leg; E53.8 Deficiency of other specified B group vitamins
CPT/HCPCS: 36415; 80053; 80061; 82607; 84443; 85025

== ENCOUNTER → 2021-12-21 | Outpatient (REF) | payer MEDICARE, OTHER, SELFPAY ==
[2021-12-21 09:24] LABS: Absolute Lymphocyte Count 1.29 X10^3/uL (0.83-4.51); Absolute Neutrophil Count 3.7 X10^3/uL (2.0-7.7); Basophil# 0.07 X10^3/uL; Eosinophil# 0.99 X10^3/uL; Eosinophils% 14.6 % (0-5); Hematocrit 35.5 % (37-47); Hemoglobin 11.1 g/dL (12.0-15.0); Lymphocyte # 1.29 X10^3/ul (0.83-4.51); Mean Corp Hgb Conc 31.3 g/dL (32-36); Mean Corpuscular Hgb 29.4 pg (27.0-32.0); Mean Corpuscular Volume 94.2 fL (81-99); Mean Platelet Vol. 11.7 fl (6.2-12.0); Monocyte# 0.69 X10^3/uL; Monocyte% 10.2 % (0-10); NRBC Flagged by Analyzer 0 % (0-5); Neutrophil # 3.73 X10^3/uL (2.7-7.7); Neutrophil % 54.9 % (47-70); Platelet Count 199 K/mm3 (150-450); RBC Distribution Width CV 13.5 % (11.6-14.6); RBC Distribution Width SD 46.6 fl (35.1-43.9); Red Blood Count 3.77 M/mm3 (4.2-5.4); White Blood Count 6.8 K/mm3 (4.4-11.0)
[2021-12-21 09:32] LABS: Color, Urine Yellow (Yellow); Glucose, Dipstick Normal (Normal); Ketone-Dipstick Negative (Negative); Leukocyte Esterase-Dipstick 500 /ul (Negative); Nitrite-Dipstick Negative (Negative); Occult Blood-Urine 10 /ul (Negative); Protein-Dipstick 15 mg/dl (Negative); Specific Gravity, Urine 1.015 (1.002-1.030); Urine Bilirubin Dipstick Negative (Negative); Urine Clarity Clear (Clear); Urine Urobilinogen Normal (Normal)
[2021-12-21 09:33] LABS: ALB/GLOB Ratio 0.9 RATIO (0.9-2.4); AST(SGOT) 17 U/L (15-37); Alanine Aminotransfer ALT/SGPT 17 U/L (13-56); Alkaline Phosphatase 112 U/L (45-117); Anion Gap 4 (5-15); BUN 17 mg/dL (7-18); BUN/Creat Ratio 18.2 RATIO (10-20); Chloride 103 mmol/L (98-107); Cholesterol 206 mg/dL (200); Creatinine, Serum 0.94 mg/dL (0.55-1.02); EST Glomerular Filtration Rate 60 mL/min (>60); Est Glom Filt Rate - Afr Amer 73 mL/min (>60); Globulin 3.3 g/dL (2.2-4.2); Glucose 85 mg/dL (74-106); High Density Lipoprotein 68 mg/dL; Potassium 4.3 mmol/L (3.5-5.1); Protein, Total 6.3 g/dL (6.4-8.2); Sodium Level 138 mmol/L (136-145); Triglycerides 71 mg/dL; Very Low Density Lipoprotein 14 mg/dL (5-40)
[2021-12-21 09:42] LABS: Vitamin B12 596 pg/mL (211-911)
== END | disposition home or self-care (01) ==
LOC: OLS.WHLTCC 04:00
PROVIDERS: PCP Internal Medicine; Referring Provider Family Medicine; Visit Provider Family Medicine
DX: J45.909 Unspecified asthma, uncomplicated (principal); N18.30 Chronic kidney disease, stage 3 unspecified; R30.0 Dysuria; K21.9 Gastro-esophageal reflux disease without esophagitis; K59.09 Other constipation; I95.89 Other hypotension; E53.8 Deficiency of other specified B group vitamins
CPT/HCPCS: 36415; 80053; 80061; 81002; 82607; 85025; 87086; 87088; 87186

== ENCOUNTER → 2022-01-19 | Outpatient (REF) | payer MEDICARE, OTHER, SELFPAY ==
[2022-01-19 07:54] LABS: Absolute Lymphocyte Count 1.06 X10^3/uL (0.83-4.51); Absolute Neutrophil Count 8.7 X10^3/uL (2.0-7.7); Basophil# 0.07 X10^3/uL; Basophil% 0.6 % (0-1); Eosinophil# 0.86 X10^3/uL; Eosinophils% 7.2 % (0-5); Hematocrit 34.5 % (37-47); Hemoglobin 11.2 g/dL (12.0-15.0); Lymphocyte # 1.06 X10^3/ul (0.83-4.51); Lymphocyte % 8.9 % (19-41); Mean Corp Hgb Conc 32.5 g/dL (32-36); Mean Corpuscular Volume 92.5 fL (81-99); Mean Platelet Vol. 11.9 fl (6.2-12.0); Monocyte# 1.23 X10^3/uL; Monocyte% 10.3 % (0-10); NRBC Flagged by Analyzer 0 % (0-5); Neutrophil # 8.68 X10^3/uL (2.7-7.7); Neutrophil % 72.6 % (47-70); Platelet Count 212 K/mm3 (150-450); RBC Distribution Width CV 13.2 % (11.6-14.6); RBC Distribution Width SD 45.2 fl (35.1-43.9); Red Blood Count 3.73 M/mm3 (4.2-5.4)
[2022-01-19 08:12] LABS: Anion Gap 6 (5-15); BUN 18 mg/dL (7-18); BUN/Creat Ratio 21.1 RATIO (10-20); Calcium,Total 8.7 mg/dL (8.5-10.1); Chloride 101 mmol/L (98-107); Creatinine, Serum 0.86 mg/dL (0.55-1.02); EST Glomerular Filtration Rate 67 mL/min (>60); Est Glom Filt Rate - Afr Amer 81 mL/min (>60); Glucose 91 mg/dL (74-106); Potassium 3.9 mmol/L (3.5-5.1); Sodium Level 137 mmol/L (136-145)
== END | disposition home or self-care (01) ==
LOC: OLS.WHLTSB 04:00
PROVIDERS: PCP Internal Medicine; Referring Provider Internal Medicine; Visit Provider Internal Medicine
DX: R53.83 Other fatigue (principal); N18.30 Chronic kidney disease, stage 3 unspecified; J45.909 Unspecified asthma, uncomplicated; K59.00 Constipation, unspecified; I95.89 Other hypotension; M62.561 Muscle wasting and atrophy, not elsewhere classified, right lower leg
CPT/HCPCS: 36415; 80048; 85025

== ENCOUNTER → 2022-01-20 | Outpatient (REF) | payer MEDICARE, OTHER, SELFPAY ==
[2022-01-20 13:06] LABS: Absolute Lymphocyte Count 0.81 X10^3/uL (0.83-4.51); Absolute Neutrophil Count 11.1 X10^3/uL (2.0-7.7); Basophil# 0.05 X10^3/uL; Basophil% 0.4 % (0-1); Eosinophil# 0.48 X10^3/uL; Eosinophils% 3.5 % (0-5); Hematocrit 35.5 % (37-47); Hemoglobin 11.2 g/dL (12.0-15.0); Lymphocyte # 0.81 X10^3/ul (0.83-4.51); Lymphocyte % 5.8 % (19-41); Mean Corp Hgb Conc 31.5 g/dL (32-36); Mean Corpuscular Hgb 29.6 pg (27.0-32.0); Mean Corpuscular Volume 93.7 fL (81-99); Mean Platelet Vol. 12.2 fl (6.2-12.0); Monocyte# 1.43 X10^3/uL; Monocyte% 10.3 % (0-10); NRBC Flagged by Analyzer 0 % (0-5); Neutrophil % 79.7 % (47-70); POSITIVE COUNT YES; RBC Distribution Width CV 13.2 % (11.6-14.6); RBC Distribution Width SD 45.4 fl (35.1-43.9); Red Blood Count 3.79 M/mm3 (4.2-5.4); White Blood Count 13.9 K/mm3 (4.4-11.0)
[2022-01-20 13:13] LABS: Anion Gap 4 (5-15); BUN 17 mg/dL (7-18); BUN/Creat Ratio 18.7 RATIO (10-20); Chloride 101 mmol/L (98-107); Creatinine, Serum 0.91 mg/dL (0.55-1.02); EST Glomerular Filtration Rate 62 mL/min (>60); Est Glom Filt Rate - Afr Amer 75 mL/min (>60); Glucose 111 mg/dL (74-106); Potassium 4.7 mmol/L (3.5-5.1); Sodium Level 134 mmol/L (136-145)
[2022-01-20 13:35] LABS: Differential Indicated SCAN CRITERIA MET
[2022-01-20 13:36] LABS: Platelet Estimate ADEQUATE (ADEQ)
== END | disposition home or self-care (01) ==
LOC: OLS.WHLTSB 12:40
PROVIDERS: PCP Internal Medicine; Visit Provider Internal Medicine
DX: R53.83 Other fatigue (principal)
CPT/HCPCS: 36415; 80048; 85025

== ENCOUNTER → 2022-01-23 | Outpatient (REF) | payer MEDICARE, OTHER, SELFPAY ==
[2022-01-23 08:07] LABS: Absolute Lymphocyte Count 0.93 X10^3/uL (0.83-4.51); Absolute Neutrophil Count 7.5 X10^3/uL (2.0-7.7); Basophil# 0.02 X10^3/uL; Basophil% 0.2 % (0-1); Eosinophil# 0.93 X10^3/uL; Eosinophils% 8.6 % (0-5); Hematocrit 32.3 % (37-47); Hemoglobin 10.1 g/dL (12.0-15.0); Lymphocyte # 0.93 X10^3/ul (0.83-4.51); Lymphocyte % 8.6 % (19-41); Mean Corp Hgb Conc 31.3 g/dL (32-36); Mean Corpuscular Hgb 29.4 pg (27.0-32.0); Mean Corpuscular Volume 93.9 fL (81-99); Mean Platelet Vol. 11.7 fl (6.2-12.0); Monocyte# 1.32 X10^3/uL; Monocyte% 12.2 % (0-10); NRBC Flagged by Analyzer 0 % (0-5); Neutrophil # 7.53 X10^3/uL (2.7-7.7); Neutrophil % 69.9 % (47-70); Platelet Count 260 K/mm3 (150-450); RBC Distribution Width CV 13.4 % (11.6-14.6); RBC Distribution Width SD 45.9 fl (35.1-43.9); Red Blood Count 3.44 M/mm3 (4.2-5.4); White Blood Count 10.8 K/mm3 (4.4-11.0)
[2022-01-23 08:24] LABS: Anion Gap 5 (5-15); BUN 17 mg/dL (7-18); BUN/Creat Ratio 19.2 RATIO (10-20); Calcium,Total 8.5 mg/dL (8.5-10.1); Chloride 100 mmol/L (98-107); Creatinine, Serum 0.89 mg/dL (0.55-1.02); EST Glomerular Filtration Rate 64 mL/min (>60); Est Glom Filt Rate - Afr Amer 78 mL/min (>60); Glucose 97 mg/dL (74-106); Potassium 4.3 mmol/L (3.5-5.1); Sodium Level 136 mmol/L (136-145)
[2022-01-23 11:30] LABS: D-Dimer Quantitative (DVT/PE) 1.94 FEU/ug/m (0.27-0.49)
== END | disposition home or self-care (01) ==
LOC: OLS.WHLTSB 05:00
PROVIDERS: PCP Internal Medicine; Visit Provider Internal Medicine
DX: J45.909 Unspecified asthma, uncomplicated (principal); N18.30 Chronic kidney disease, stage 3 unspecified; R09.02 Hypoxemia; J06.9 Acute upper respiratory infection, unspecified; R05.9 Cough, unspecified; K59.00 Constipation, unspecified; I95.89 Other hypotension
CPT/HCPCS: 36415; 80048; 85025; 85379

== ENCOUNTER 2022-01-24 09:29 | Emergency (ER) | payer MEDICARE, OTHER, SELFPAY ==
[2022-01-24] VITALS (8 sets, daily range): BP systolic 111–125; BP diastolic 66–77; PULSE 77–90; RESP 16–23; TEMP 36.2–36.7; O2SAT 96–98; BMI 32.3
--- NOTE | 2022-01-24 09:36 | CT_ITS ---
STUDY: CT BRAIN WITHOUT CONTRAST REASON FOR EXAM: Female, 86 years old. Weakness ,falls RADIATION DOSAGE (If Supplied By Facility): CTDIvol = ( 44.99 ) mGy, DLP = ( 796.11 ) mGycm TECHNIQUE: Transaxial CT imaging of the brain was performed without administration of intravenous contrast material. Individualized dose optimization techniques were used for this CT. COMPARISON: Comparison is made with prior study dated 06/02/2012. FINDINGS: Normal soft tissue structures. Normal calvarium. There is mild cerebral atrophy with widening of the extra-axial spaces and ventricular dilatation. There are areas of decreased attenuation within the white matter tracts of the supratentorial brain, consistent with microvascular disease changes. Old lacunar infarcts seen in the insular cortex of both temporal lobes. Normal brainstem. Normal cerebellum. There is no intracranial hemorrhage. There are no findings of an acute ischemic infarction. Partial opacification of the ethmoid sinuses as well as the ethmoid sinuses bilaterally. CT/Brain/Head without Contrast IMPRESSION: Chronic involutional changes of the brain. Partial opacification of the sphenoid sinuses as well as the ethmoid sinuses bilaterally. Electronically Signed: Jose Alberto Houser MD at 10:39 EDT ,
--- NOTE | 2022-01-24 09:37 | EKG12_ITS ---
Test Reason : SOB Blood Pressure : / mmHG Vent. Rate : 085 BPM Atrial Rate : 085 BPM P-R Int : 160 ms QRS Dur : 072 ms QT Int : 342 ms P-R-T Axes : 021 -10 034 degrees QTc Int : 406 ms Normal sinus rhythm Normal ECG No previous ECGs available Confirmed by SEU BURTON, ALLY ([id number]), proposal editor JENNY KENDALL ([id number]) on 01/25/2022 2:09:51 PM Referred By: LORIE Confirmed By:ALLY ROGERS MD
--- NOTE | 2022-01-24 09:41 | EDS_ITS ---
HPI History of Present Illness Chief Complaint: Shortness of Breath Informant: PCP and SNF Limited: dementia Narrative Narrative: Patient is an 86-year-old female with history of dementia, hypertension, hyperlipidemia, reactive airway and hypothyroid presenting for increased weakness, increased O2 demands and a questionable facial droop this morning. Patient's geriatric nurse practitioner, Mary Hidalgo contacted me and I gave me her recent history. On Sunday, 4 days ago, patient was seen for fever and upper respiratory symptoms. She had a chest x-ray that was negative. She had negative Covid and flu swab. She did not improve and was put on Augmentin 875 twice a day. Patient then had an episode of diarrhea the next day. She was placed on Imodium. She had another episode of diarrhea today. A C. difficile was ordered has not been collected. Patient was noted to have episodes of desaturation down to 87% and she was placed on 2 L of oxygen. Outpatient D-dimer was ordered which was elevated at 1.94. CTA has since been ordered but has not been performed yet. Patient has had multiple falls over the past 4 days and has been having increased weakness. She started having difficulty swallowing her medications last night. Patient did have a hand and wrist x-ray after one of the falls which was negative. This morning around 630 or 7 AM nursing staff noticed that she had a left facial droop and slurred speech. This has since resolved. Patient was evaluated by her nurse practitioner this morning and she was felt to be back at her baseline neurologically. However, due to patient's increased weakness, oxygen demands and general decline she was brought to emergency room for further evaluation. Patient not have a known history of stroke. Her last fever was reported to be 100.6 ?F yesterday. Patient is DNR [facility] Medical History Anemia Asthma Chronic cough Debility Dementia Essential (primary) hypertension Falls Hyperlipidemia Hypothyroidism Non-rheumatic tricuspid valve insufficiency Osteoporosis Home Medications levothyroxine 50 mcg tablet 50 mcg PO QDAY tab 02/02/18 [History Last Taken 01/24/22] montelukast 10 mg tablet 10 mg PO DAILY 90 Days 02/02/18 [History Last Taken 01/24/22] memantine 10 mg tablet 10 mg PO BID 07/31/19 [History Last Taken 01/24/22] cyanocobalamin (vitamin B-12) 1,000 mcg sublingual tablet 500 mcg SUBLINGUAL QDAY tab 09/23/20 [History Last Taken 01/24/22] cholecalciferol (vitamin D3) 50 mcg (2,000 unit) capsule 2,000 unit PO DAILY 06/08/21 [History Last Taken 01/24/22] citalopram 20 mg tablet 20 mg PO QHS 06/08/21 [History Last Taken 01/23/22] omeprazole 20 mg capsule,delayed release 20 mg PO QHS #90 cap 06/14/21 [Rx Last Taken 01/23/22] L. ywqkebeqh-J-ybco-elderberry [Culturelle Immune Defense] 1 tab PO DAILY 01/24/22 [History Last Taken 01/24/22] amoxicillin-pot clavulanate [Augmentin] 1 tab PO TID 01/24/22 [History Last Taken 01/24/22] apixaban [Eliquis DVT-PE Treat 30D Start] 5 mg PO BID 30 Days #74 tab 01/24/22 [Rx Last Taken Unknown] guaifenesin 200 mg PO Q4H PRN 01/24/22 [History Last Taken Unknown] magnesium hydroxide [Milk of Magnesia] 30 ml PO DAILY PRN 01/24/22 [History Last Taken Unknown] midodrine 2.5 mg PO BID 01/24/22 [History Last Taken 01/24/22] Allergy/AdvReac Type Severity Reaction Status Date / Time No Known Allergies Allergy Verified 01/24/22 09:39 chlorine Allergy Intermediate rash Uncoded 01/24/22 09:39 Family History Sister , age 40 Breast cancer Surgical History History of cataract surgery Social History Smoking Status: Never smoker alcohol intake: never caffeine: No ROS ROS ED ROS Narrative Review of systems limited secondary to patient's dementia. Patient currently denies any complaints. Review of Systems ROS Unobtainable: other Constitutional Constitutional ED: Reports fever(s) Respiratory/Chest Respiratory/Chest: Reports cough Neurologic Neurologic: Reports weakness EXAM Physical Exam Const Vital Signs: 01/24/22 09:29 01/24/22 09:33 01/24/22 09:54 Temperature 97.1 F L 97.1 F L Temperature Source Temporal Temporal Pulse Rate 89 86 Respiratory Rate 22 H 23 H Respiratory Effort Respiratory Depth Respiratory Pattern Blood Pressure 121/66 H 121/66 H Blood Pressure Mean 84 84 Pulse Ox 96 96 97 Oxygen Delivery Method Nasal Cannula Nasal Cannula Nasal Cannula Oxygen Flow Rate (L/min) 2 2 2 01/24/22 11:19 01/24/22 11:26 01/24/22 11:53 Temperature 97.1 F L Temperature Source Temporal Pulse Rate 90 78 Respiratory Rate 18 18 Respiratory Effort Normal Non-Labored Respiratory Depth Normal Respiratory Pattern Normal Blood Pressure 114/72 111/77 Blood Pressure Mean 86 88 Pulse Ox 96 98 Oxygen Delivery Method Nasal Cannula Nasal Cannula Nasal Cannula Oxygen Flow Rate (L/min) 2 2 2 01/24/22 14:00 01/24/22 14:12 01/24/22 15:00 Temperature 98.0 F 98.0 F 98.1 F Temperature Source Temporal Temporal Temporal Pulse Rate 80 77 Respiratory Rate 18 18 Respiratory Effort Respiratory Depth Respiratory Pattern Blood Pressure 115/70 125/75 H Blood Pressure Mean 85 91 Pulse Ox 97 Oxygen Delivery Method Nasal Cannula Oxygen Flow Rate (L/min) 2 Positive well nourished and well developed General Appearance ED: well developed and NAD HEENT Reports TM's clear and moist mucous membranes Negative for trauma Tympanic Membrane ED: Yes TM's clear Eyes PERRL and EOMs intact bilaterally Eyes Narrative: Pupils 2 mm bilaterally Neck supple and no JVD Chest Wall inspection of chest normal Resp Resp Narrative: Shallow respirations with diminished breath sounds at the bases. tachypnea Auscultation: diminished lung sounds Cardio regular rate, regular rhythm and no murmurs GI normal to inspection, nondistended, normoactive bowel sounds and non-tender Palpation: soft Back/Spine no CVA tenderness Extremity normal to inspection General Extremety ED: Negative for edema or tenderness General Extremity: Negative for edema Neuro Neuro Narrative: Patient is oriented to self only. No focal neurologic deficits noted including weakness of the extremities, paresthesias or lack of coordination. No visual field cut appreciated. No facial droop. Sensorium / Orientation: alert Skin no rashes or lesions noted MDM MDM MDM Narrative Medical decision making narrative: Patient evaluated for shortness of breath. She has had increased oxygen requirements over the past week and is now on 2 L of oxygen. She had an elevated outpatient D-dimer. There was a questionable fever and patient was on a course of Augmentin. She is had increased generalized weakness and falls and family like her evaluated the emergency room. Patient is a resident of a memory care unit. Patient is very well-appearing in the emergency room. She is on 2 L of oxygen is in no respiratory distress. Physical exam is quite benign. Work-up shows a mild leukocytosis 11.3 which is nonspecific. Her CMP is unremarkable. Lactate is normal 1.6. Chest x-rays does not show acute process. Given her elevated outpatient D-dimer I did obtain CTA of the chest. This shows small pulmonary emboli of the lingular branch of the left pulmonary artery. She is small bilateral pleural effusions with bibasilar atelectasis. There is mild airspace disease in the posterior lateral aspect of the right upper lobe. High sensitivity troponin is normal. She does have a mildly elevated proBNP. There is no prior to compare to. I did add on a venous duplex of the lower extremities which showed acute DVT of the left TP trunk and peroneal vein. I had extensive conversation with the patient's daughter who is her medical decision-maker. We discussed starting her on anticoagulation and the risk of bleeding associated with this. Especially as patient does have frequent falls. Discussed that if she is on blood thinner and hits her head she could have intracranial bleeding which could lead to and very serious consequences such as permanent disability. The other option is not treating her which would increase her risk of having a larger pulmonary emboli and possibly cardiac arrest. Also discussed the potential of placing a filter however this would require procedure and sedation as well as a vascular consult. Spoke with nurse practitioner from patient's facility who directs a lot of her care. She was agreeable with the patient coming back to the facility and felt like they could handle her. The patient's daughter spoke with her sisters and they decided that they would like her to go back to her facility and start anticoagulation. They are aware of the risk of major bleeding associated with being on anticoagulation. Patient's RIETE score (risk for hemorrhage and pulmonary emboli treatment) is 0.1% and her Pesi score is 4 to 11%. At this time family would like to proceed with anticoagulation. Patient started on Eliquis and given first dose in the emergency room. A prescription is printed as well for this. Patient remains hemodynamically stable and very pleasant in the emergency room. Lab Data Attestation: I reviewed the patient's lab results. Labs: Laboratory Results - last 24 hr 01/24/22 01/24/22 01/24/22 09:42 09:42 09:42 WBC 11.3 H RBC 3.65 L Hgb 10.8 L Hct 33.6 L MCV 92.1 MCH 29.6 MCHC 32.1 RDW Std Deviation 44.0 H RDW Coeff of [place]aren[place] 13.1 Plt Count 263 MPV 10.7 Immature Gran % (Auto) 0.700 Neut % (Auto) 77.1 H Lymph % (Auto) 5.9 L [place] % (Auto) 10.4 H Eos % (Auto) 5.6 H Baso % (Auto) 0.3 Absolute Neuts (auto) 8.7 H Absolute Lymphs (auto) 0.67 L Nucleated RBC % 0 PT 13.2 INR 1.1 APTT 35.5 Sodium 134 L Potassium 4.5 Chloride 99 Carbon Dioxide 31.0 Anion Gap 4 L BUN 15 Creatinine 0.97 Estim Creat Clear Calc 29.35 Est GFR (MDRD) Af Amer 70 Est GFR (MDRD) Non-Af 58 L BUN/Creatinine Ratio 15.4 Glucose 101 Lactic Acid Calcium 8.5 Total Bilirubin 0.30 AST 18 ALT 15 Alkaline Phosphatase 106 Total Creatine Kinase 115 Troponin I High Sens B-Natriuretic Peptide Total Protein 7.0 Albumin 2.7 L Globulin 4.3 H Albumin/Globulin Ratio 0.6 L Urine Color Urine Clarity Urine pH Ur Specific Miles Urine Protein Urine Glucose (UA) Urine Ketones Urine Occult Blood Urine Nitrite Urine Bilirubin Urine Urobilinogen Ur Leukocyte Esterase Urine RBC Urine WBC Ur Squamous Epith Cells Urine Bacteria Urine Mucus 01/24/22 01/24/22 01/24/22 09:42 09:42 09:50 WBC RBC Hgb Hct MCV MCH MCHC RDW Std Deviation RDW Coeff of [place] Plt Count MPV Immature Gran % (Auto) Neut % (Auto) Lymph % (Auto) [place] % (Auto) Eos % (Auto) Baso % (Auto) Absolute Neuts (auto) Absolute Lymphs (auto) Nucleated RBC % PT INR APTT Sodium Potassium Chloride Carbon Dioxide Anion Gap BUN Creatinine Estim Creat Clear Calc Est GFR (MDRD) Af Amer Est GFR (MDRD) Non-Af BUN/Creatinine Ratio Glucose Lactic Acid 1.6 Calcium Total Bilirubin AST ALT Alkaline Phosphatase Total Creatine Kinase Troponin I High Sens 5 B-Natriuretic Peptide 173.2 H Total Protein Albumin Globulin Albumin/Globulin Ratio Urine Color Urine Clarity Urine pH Ur Specific Miles Urine Protein Urine Glucose (UA) Urine Ketones Urine Occult Blood Urine Nitrite Urine Bilirubin Urine Urobilinogen Ur Leukocyte Esterase Urine RBC Urine WBC Ur Squamous Epith Cells Urine Bacteria Urine Mucus 01/24/22 10:45 WBC RBC Hgb Hct MCV MCH MCHC RDW Std Deviation RDW Coeff of Macarena Plt Count MPV Immature Gran % (Auto) Neut % (Auto) Lymph % (Auto) [place] % (Auto) Eos % (Auto) Baso % (Auto) Absolute Neuts (auto) Absolute Lymphs (auto) Nucleated RBC % PT INR APTT Sodium Potassium Chloride Carbon Dioxide Anion Gap BUN Creatinine Estim Creat Clear Calc Est GFR (MDRD) Af Amer Est GFR (MDRD) Non-Af BUN/Creatinine Ratio Glucose Lactic Acid Calcium Total Bilirubin AST ALT Alkaline Phosphatase Total Creatine Kinase Troponin I High Sens B-Natriuretic Peptide Total Protein Albumin Globulin Albumin/Globulin Ratio Urine Color Yellow Urine Clarity Clear Urine pH 5.0 Ur Specific Miles 1.025 Urine Protein 30 H Urine Glucose (UA) Normal Urine Ketones 5 H Urine Occult Blood 25 H Urine Nitrite Negative Urine Bilirubin Negative Urine Urobilinogen Normal Ur Leukocyte Esterase 25 H Urine RBC 0-5 SEEN Urine WBC 0-5 SEEN Ur Squamous Epith Cells 0 SEEN Urine Bacteria 0 SEEN Urine Mucus 0 SEEN Radiography Chest X-Ray - ED: 1 View, Read by ED Physician, Read by Radiologist and No Acute Disease Diagnostic Testing: Clinical Impression(s) from Imaging Studies Brain CT 01/24/22 09:36 IMPRESSION: Chronic involutional changes of the brain. Partial opacification of the sphenoid sinuses as well as the ethmoid sinuses bilaterally. Electronically Signed: Jose Alberto Houser MD at 10:39 EDT , Chest X-Ray 01/24/22 10:00 IMPRESSION: Possible 1.1 cm x 1.8 cm nodule in the medial aspect of the left lower lobe. Electronically Signed: Jose Alberto Houser MD at 10:23 EDT , Chest CTA 01/24/22 10:36 IMPRESSION: Pulmonary emboli seen in the lingular branches of the left pulmonary artery. Small bilateral pleural effusions with bibasilar atelectasis. Mild airspace disease in the posterior lateral aspect of the right upper lobe. Electronically Signed: Jose Alberto Houser MD at 12:17 EDT , Rhythm Strip Rhythm Strip: Sinus Rhythm Rate: 85 Ectopy: None EKG Initial EKG: Attestation: I personally reviewed and interpreted this EKG as follows: Interpretation: Sinus Rhythm Comments: Normal sinus rhythm rate of 85 Normal axis Normal intervals Normal ST segments Discharge Plan Triage Chief Complaint: Shortness of Breath ED Provider: Jessica Lainez Dx/Rx/DC Orders Clinical Impression: Pulmonary emboli, DVT of lower extremity (deep venous thrombosis), Shortness of breath Instructions: DVT/PE Discharge instruction sheet, ED Deep Vein Thrombosis (DVT) Prescriptions: Dylan Hobbs DVT-PE Treat 30D Start 5 mg (74 tabs) tablets,dose pack 5 mg PO BID 30 Days Qty: 74 RF: 0 No Action montelukast 10 mg tablet 10 mg PO DAILY 90 Days RF: 0 levothyroxine [Synthroid] 50 mcg tablet 50 mcg PO QDAY RF: 0 cyanocobalamin (vitamin B-12) 1,000 mcg tablet, sublingual 500 mcg SUBLINGUAL QDAY RF: 0 memantine 10 mg tablet 10 mg PO BID RF: 0 omeprazole 20 mg capsule,delayed release(DR/EC) 20 mg PO QHS Qty: 90 RF: 1 citalopram 20 mg tablet 20 mg PO QHS RF: 0 cholecalciferol (vitamin D3) 50 mcg (2,000 unit) capsule 2,000 unit PO DAILY RF: 0 guaifenesin 100 mg/5 mL Liquid 200 mg PO Q4H PRN (Reason: Cough) RF: 0 magnesium hydroxide [Milk of Magnesia] 400 mg/5 mL Suspension 30 ml PO DAILY PRN (Reason: Constipation) RF: 0 midodrine 2.5 mg Tablet 2.5 mg PO BID RF: 0 amoxicillin-pot clavulanate [Augmentin] 500-125 mg Tablet 1 tab PO TID RF: 0 Culturelle Immune Defense 10 billion cell -90 mg-3 mg Tablet,Chewable 1 tab PO DAILY RF: 0 Primary Care Provider: Viridiana Sexton Referrals: Viridiana Sexton MD [Primary Care Provider] - Ravindra Perez MD [STAFF PHYSICIAN] - As soon as possible (Evaluation for DVT/pulmonary embolism possible [place] filter)
--- NOTE | 2022-01-24 09:41 | NURSING ---
NO OLD EKGS
[2022-01-24 09:56] LABS: Absolute Lymphocyte Count 0.67 X10^3/uL (0.83-4.51); Absolute Neutrophil Count 8.7 X10^3/uL (2.0-7.7); Basophil# 0.03 X10^3/uL; Basophil% 0.3 % (0-1); Eosinophil# 0.63 X10^3/uL; Eosinophils% 5.6 % (0-5); Hematocrit 33.6 % (37-47); Hemoglobin 10.8 g/dL (12.0-15.0); Lymphocyte # 0.67 X10^3/ul (0.83-4.51); Lymphocyte % 5.9 % (19-41); Mean Corp Hgb Conc 32.1 g/dL (32-36); Mean Corpuscular Hgb 29.6 pg (27.0-32.0); Mean Corpuscular Volume 92.1 fL (81-99); Mean Platelet Vol. 10.7 fl (6.2-12.0); Monocyte# 1.18 X10^3/uL; Monocyte% 10.4 % (0-10); NRBC Flagged by Analyzer 0 % (0-5); Neutrophil # 8.72 X10^3/uL (2.7-7.7); Neutrophil % 77.1 % (47-70); Platelet Count 263 K/mm3 (150-450); RBC Distribution Width CV 13.1 % (11.6-14.6); Red Blood Count 3.65 M/mm3 (4.2-5.4); White Blood Count 11.3 K/mm3 (4.4-11.0)
--- NOTE | 2022-01-24 10:00 | RAD_ITS ---
STUDY: X-RAY CHEST REASON FOR EXAM: Female, 86 years old. Cough, hypoxia TECHNIQUE: Single AP portable view of the chest. COMPARISON: Comparison is made with prior study 06/02/2020. FINDINGS: EKG electrodes are seen. Question of a 1.1 cm x 1.8 cm nodule in the medial aspect of the left lower lobe. There is no demonstrated pleural abnormality. Normal size heart. Normal mediastinum and ana maria. Normal visualized pulmonary arteries. There is atherosclerotic calcification of the aortic arch with tortuosity. There are diffuse degenerative changes of the visualized thoracic spine. There is degenerative osteoarthritis of the bilateral shoulders. There is no demonstrated abnormality of the visualized soft tissue structures of the upper abdomen. RAD/Chest 1 View (Portable) IMPRESSION: Possible 1.1 cm x 1.8 cm nodule in the medial aspect of the left lower lobe. Electronically Signed: Jose Alberto Houser MD at 10:23 EDT ,
[2022-01-24 10:07] LABS: International Normalized Ratio 1.1; Prothrombin Time (Protime)PT. 13.2 SECONDS (11.7-14.9)
[2022-01-24 10:08] LABS: Partial Thromboplast Time 35.5 Seconds (24.1-36.2)
[2022-01-24 10:13] LABS: ALB/GLOB Ratio 0.6 RATIO (0.9-2.4); AST(SGOT) 18 U/L (15-37); Alanine Aminotransfer ALT/SGPT 15 U/L (13-56); Albumin, Serum 2.7 g/dL (3.2-5.0); Alkaline Phosphatase 106 U/L (45-117); Anion Gap 4 (5-15); BUN 15 mg/dL (7-18); BUN/Creat Ratio 15.4 RATIO (10-20); CPK Total, Creatine Kinase 115 U/L (26-192); Calcium,Total 8.5 mg/dL (8.5-10.1); Chloride 99 mmol/L (98-107); Creatinine, Serum 0.97 mg/dL (0.55-1.02); EST Glomerular Filtration Rate 58 mL/min (>60); Est Glom Filt Rate - Afr Amer 70 mL/min (>60); Estimated Creatinine Clearance 29.35 ml/min; Globulin 4.3 g/dL (2.2-4.2); Glucose 101 mg/dL (74-106); Potassium 4.5 mmol/L (3.5-5.1); Sodium Level 134 mmol/L (136-145)
[2022-01-24 10:26] LABS: Lactic Acid 1.6 mmol/L (0.4-1.9)
--- NOTE | 2022-01-24 10:36 | CT_ITS ---
STUDY: CTA CHEST REASON FOR EXAM: Female, 86 years old. Hypoxia, elevated dimer RADIATION DOSAGE (If Supplied By Facility): CTDIvol = ( 12.09 ) mGy, DLP = ( 363.23 ) mGycm TECHNIQUE: The examination was performed with the intravenous administration of IV 100mL Isovue-370. Post-processing of the angiographic images was performed, with multiplanar reformation and 3D reconstruction. Individualized dose optimization techniques were used for this CT. COMPARISON: Comparison is made with prior chest radiograph done earlier today. FINDINGS: There are multiple small luminal filling defects in branches of the left lingular pulmonary artery in keeping with pulmonary emboli.. Normal thoracic aorta and visualized great vessels. There is no demonstrated aortic dissection. Normal heart and pericardium. Normal mediastinum. Normal hilar regions. Normal visualized trachea and bronchi. The lungs are well expanded. Tiny bilateral pleural effusions with bibasilar atelectasis. Patchy alveolar infiltrate is seen in the posterior lateral aspect of the right upper lobe abutting the pleural surface. Normal chest wall structures. There are degenerative changes of thoracic spine. Increased kyphosis. Fatty infiltration of the liver. CT/CTA Chest W/WO Contrast IMPRESSION: Pulmonary emboli seen in the lingular branches of the left pulmonary artery. Small bilateral pleural effusions with bibasilar atelectasis. Mild airspace disease in the posterior lateral aspect of the right upper lobe. Electronically Signed: Jose Alberto Houser MD at 12:17 EDT ,
[2022-01-24 10:55] LABS: Bacteria 0 SEEN /hpf (None Seen); Mucous, Urine 0 SEEN /hpf (<or=2+); Squamous Epithelial Cells - UA 0 SEEN /hpf (5-10)
[2022-01-24 11:06] LABS: Color, Urine Yellow (Yellow); Glucose, Dipstick Normal (Normal); Ketone-Dipstick 5 mg/dl (Negative); Leukocyte Esterase-Dipstick 25 /ul (Negative); Nitrite-Dipstick Negative (Negative); Occult Blood-Urine 25 /ul (Negative); Protein-Dipstick 30 mg/dl (Negative); Specific Gravity, Urine 1.025 (1.002-1.030); Urine Bilirubin Dipstick Negative (Negative); Urine Clarity Clear (Clear); Urine Urobilinogen Normal (Normal)
[2022-01-24 11:12] LABS: Red Blood Cells-Urine 0-5 SEEN /hpf (0-5); White Blood Cells 0-5 SEEN /hpf (0-5)
[2022-01-24] MEDS: 0.9% Normal Saline 1,000 ML 150 ML IV (11:52)
[2022-01-24 12:52] LABS: Troponin-I HS 5 pg/mL (3.0-54.0)
[2022-01-24 12:54] LABS: BNP,B-Type NATRIURETIC PEPTIDE 173.2 pg/mL (0-100)
--- NOTE | 2022-01-24 13:23 | VDLE_ITS ---
Reason For Study: Pulmonary embolism RIGHT LEFT GSV is normal. GSV is normal. CFV is compressible, spontaneous, phasic, CFV is compressible, spontaneous, phasic, competent and demonstrates normal competent, and demonstrates normal augmentation. augmentation. FV visualized with color only, appears POP V is compressible, spontaneous, phasic, patent, normal venous flow noted. competent and demonstrates normal POP V is compressible, spontaneous, phasic, augmentation. competent and demonstrates normal PTV is compressible. augmentation. FV visualized with color only, appears T/P Trunk is compressible. patent, normal venous flow noted. PTV is compressible. RT PerV is compressible. Acute deep vein thrombosis is noted in the Procedure left T/P trunk and Peroneal vein. This is a venous duplex using B-mode, color flow and spectral Doppler. Exam performed portable in ED. Bilateral FV visualized in color only, pt unable to tolerate any compression. A preliminary report was called and/or faxed to ED. VL/Venous Duplex US - [place] Extrem Interpretation Summary There is no evidence of right lower extremity deep vein thrombosis. Acute deep venous thrombosis left posterior tibial and peroneal veins. Technical limitation visualizing bilateral femoral veins with color only. Patent and compressible bilateral great saphenous veins Ordering Physician: Jessica Lainez Referring Physician: Viridiana Sexton Performed By: Xin Menchaca RVT
[2022-01-24] MEDS: APIXABAN 5 MG TABLET 10 MG PO (15:17)
--- NOTE | 2022-01-24 15:32 | NURSING ---
CALLED [facility], ETA IS 30 MIN
== END 2022-01-24 16:06 | disposition home or self-care (01) ==
LOC: ED 10:33
PROVIDERS: Emergency Provider Emergency Medicine; PCP Internal Medicine; Visit Provider Emergency Medicine
DX: I26.99 Other pulmonary embolism without acute cor pulmonale (principal); F03.90 Unspecified dementia, unspecified severity, without behavioral disturbance, psychotic disturbance, mood disturbance, and anxiety; I82.409 Acute embolism and thrombosis of unspecified deep veins of unspecified lower extremity; R06.02 Shortness of breath; E03.9 Hypothyroidism, unspecified; Z79.899 Other long term (current) drug therapy; Z79.01 Long term (current) use of anticoagulants
CPT/HCPCS: 70450; 71045; 71275; 80053; 81001; 82550; 83605; 83880; 84484; 85025; 85610; 85730; 87040; 87086; 87804; 87811; 93005; 93970; 99285; J7030; P9612; Q9967

== ENCOUNTER → 2022-02-02 | Outpatient (REF) | payer MEDICARE, OTHER, SELFPAY ==
[2022-02-02 09:49] LABS: Absolute Lymphocyte Count 1.54 X10^3/uL (0.83-4.51); Absolute Neutrophil Count 4.1 X10^3/uL (2.0-7.7); Basophil# 0.05 X10^3/uL; Basophil% 0.7 % (0-1); Eosinophil# 0.68 X10^3/uL; Eosinophils% 9.6 % (0-5); Hematocrit 32.9 % (37-47); Hemoglobin 10.2 g/dL (12.0-15.0); Lymphocyte # 1.54 X10^3/ul (0.83-4.51); Lymphocyte % 21.7 % (19-41); Mean Corpuscular Hgb 29.1 pg (27.0-32.0); Mean Corpuscular Volume 93.7 fL (81-99); Mean Platelet Vol. 11.6 fl (6.2-12.0); Monocyte# 0.66 X10^3/uL; Monocyte% 9.3 % (0-10); NRBC Flagged by Analyzer 0 % (0-5); Neutrophil # 4.13 X10^3/uL (2.7-7.7); Platelet Count 296 K/mm3 (150-450); RBC Distribution Width CV 13.4 % (11.6-14.6); RBC Distribution Width SD 45.7 fl (35.1-43.9); Red Blood Count 3.51 M/mm3 (4.2-5.4); White Blood Count 7.1 K/mm3 (4.4-11.0)
[2022-02-02 09:59] LABS: Anion Gap 5 (5-15); BUN 19 mg/dL (7-18); BUN/Creat Ratio 18.4 RATIO (10-20); Calcium,Total 8.5 mg/dL (8.5-10.1); Chloride 102 mmol/L (98-107); Creatinine, Serum 1.03 mg/dL (0.55-1.02); EST Glomerular Filtration Rate 54 mL/min (>60); Est Glom Filt Rate - Afr Amer 65 mL/min (>60); Glucose 83 mg/dL (74-106); Potassium 4.3 mmol/L (3.5-5.1); Sodium Level 136 mmol/L (136-145)
== END | disposition home or self-care (01) ==
LOC: OLS.WHLTSB 05:00
PROVIDERS: PCP Internal Medicine; Visit Provider Internal Medicine
DX: I26.09 Other pulmonary embolism with acute cor pulmonale (principal); J45.909 Unspecified asthma, uncomplicated; E88.09 Other disorders of plasma-protein metabolism, not elsewhere classified; R00.0 Tachycardia, unspecified; R50.9 Fever, unspecified
CPT/HCPCS: 36415; 80048; 85025

== ENCOUNTER → 2022-02-14 | Outpatient (REF) | payer MEDICARE, OTHER, SELFPAY ==
[2022-02-14 08:05] LABS: Absolute Lymphocyte Count 1.01 X10^3/uL (0.83-4.51); Absolute Neutrophil Count 1.5 X10^3/uL (2.0-7.7); Basophil# 0.03 X10^3/uL; Basophil% 0.8 % (0-1); Eosinophil# 0.65 X10^3/uL; Eosinophils% 17.2 % (0-5); Hemoglobin 11.5 g/dL (12.0-15.0); Lymphocyte # 1.01 X10^3/ul (0.83-4.51); Lymphocyte % 26.8 % (19-41); Mean Corp Hgb Conc 31.1 g/dL (32-36); Mean Corpuscular Volume 93.4 fL (81-99); Mean Platelet Vol. 12.2 fl (6.2-12.0); Monocyte# 0.57 X10^3/uL; Monocyte% 15.1 % (0-10); NRBC Flagged by Analyzer 0 % (0-5); Neutrophil % 39.8 % (47-70); Platelet Count 184 K/mm3 (150-450); RBC Distribution Width CV 13.7 % (11.6-14.6); Red Blood Count 3.96 M/mm3 (4.2-5.4); White Blood Count 3.8 K/mm3 (4.4-11.0)
[2022-02-14 08:18] LABS: Anion Gap 5 (5-15); BUN 18 mg/dL (7-18); BUN/Creat Ratio 19.7 RATIO (10-20); Calcium,Total 8.7 mg/dL (8.5-10.1); Chloride 101 mmol/L (98-107); Creatinine, Serum 0.91 mg/dL (0.55-1.02); EST Glomerular Filtration Rate 62 mL/min (>60); Est Glom Filt Rate - Afr Amer 75 mL/min (>60); Glucose 74 mg/dL (74-106); Sodium Level 134 mmol/L (136-145)
== END | disposition home or self-care (01) ==
LOC: OLS.WHLTSB 05:00
PROVIDERS: PCP Internal Medicine; Visit Provider Internal Medicine
DX: J45.909 Unspecified asthma, uncomplicated (principal); E56.8 Deficiency of other vitamins; D64.9 Anemia, unspecified; E88.09 Other disorders of plasma-protein metabolism, not elsewhere classified; Z86.16 Personal history of COVID-19
CPT/HCPCS: 36415; 80048; 85025

== ENCOUNTER → 2022-02-16 | Outpatient (REF) | payer MEDICARE, OTHER, SELFPAY ==
[2022-02-16 07:43] LABS: Platelet Count 160 K/mm3 (150-450); RET-HE 31.7 pg (30-35); Reticulocyte Count 0.59 % (0.5-1.5)
[2022-02-16 08:41] LABS: Ferritin 443 ng/mL (8-252); Iron 40 ug/dL (50-170); Iron Binding Capacity,Total 298 ug/dL (250-450)
== END | disposition home or self-care (01) ==
LOC: OLS.WHLTSB 04:00
PROVIDERS: PCP Internal Medicine; Referring Provider Internal Medicine; Visit Provider Internal Medicine
DX: D64.9 Anemia, unspecified (principal); I26.09 Other pulmonary embolism with acute cor pulmonale; J45.909 Unspecified asthma, uncomplicated; E88.09 Other disorders of plasma-protein metabolism, not elsewhere classified; R00.0 Tachycardia, unspecified
CPT/HCPCS: 36415; 82728; 82746; 83540; 83550; 85045

== ENCOUNTER → 2022-02-20 | Outpatient (REF) | payer MEDICARE, OTHER, SELFPAY ==
[2022-02-20 10:11] LABS: Absolute Lymphocyte Count 1.33 X10^3/uL (0.83-4.51); Absolute Neutrophil Count 2.8 X10^3/uL (2.0-7.7); Basophil# 0.04 X10^3/uL; Basophil% 0.7 % (0-1); Eosinophils% 12.1 % (0-5); Hemoglobin 10.8 g/dL (12.0-15.0); Lymphocyte # 1.33 X10^3/ul (0.83-4.51); Mean Corp Hgb Conc 30.9 g/dL (32-36); Mean Corpuscular Volume 93.8 fL (81-99); Mean Platelet Vol. 12.5 fl (6.2-12.0); Monocyte% 15.6 % (0-10); NRBC Flagged by Analyzer 0 % (0-5); Neutrophil # 2.79 X10^3/uL (2.7-7.7); Neutrophil % 48.3 % (47-70); Platelet Count 186 K/mm3 (150-450); RBC Distribution Width CV 13.8 % (11.6-14.6); RBC Distribution Width SD 47.5 fl (35.1-43.9); Red Blood Count 3.73 M/mm3 (4.2-5.4); White Blood Count 5.8 K/mm3 (4.4-11.0)
== END | disposition home or self-care (01) ==
LOC: OLS.WHLTSB 05:25
PROVIDERS: PCP Internal Medicine; Visit Provider Internal Medicine
DX: I26.09 Other pulmonary embolism with acute cor pulmonale (principal); J45.909 Unspecified asthma, uncomplicated; E56.8 Deficiency of other vitamins; D64.9 Anemia, unspecified; E88.09 Other disorders of plasma-protein metabolism, not elsewhere classified; Z86.16 Personal history of COVID-19
CPT/HCPCS: 36415; 85025

== ENCOUNTER 2022-03-06 05:00 | Outpatient (REF) | payer MEDICARE, SELFPAY ==
[2022-03-06 09:28] LABS: Anion Gap 7 (5-15); BUN 15 mg/dL (7-18); BUN/Creat Ratio 19.2 RATIO (10-20); Calcium,Total 8.7 mg/dL (8.5-10.1); Chloride 101 mmol/L (98-107); Creatinine, Serum 0.78 mg/dL (0.55-1.02); EST Glomerular Filtration Rate 74 mL/min (>60); Est Glom Filt Rate - Afr Amer 90 mL/min (>60); Glucose 93 mg/dL (74-106); Potassium 4.1 mmol/L (3.5-5.1); Sodium Level 137 mmol/L (136-145)
== END 2022-03-06 23:59 | disposition home or self-care (01) ==
LOC: OLS.WHLTSB 05:00
PROVIDERS: PCP Internal Medicine; Referring Provider Family Medicine; Visit Provider Family Medicine
DX: G30.9 Alzheimer's disease, unspecified (principal)
CPT/HCPCS: 36415; 80048

== ENCOUNTER → 2022-03-09 | Outpatient (REF) | payer MEDICARE, OTHER, SELFPAY ==
[2022-03-09 07:48] LABS: Red Blood Cells-Urine 0 SEEN /hpf (0-5)
[2022-03-09 08:15] LABS: Absolute Lymphocyte Count 0.97 X10^3/uL (0.83-4.51); Absolute Neutrophil Count 5.1 X10^3/uL (2.0-7.7); Basophil# 0.04 X10^3/uL; Basophil% 0.5 % (0-1); Eosinophil# 0.91 X10^3/uL; Eosinophils% 11.2 % (0-5); Hematocrit 32.3 % (37-47); Hemoglobin 10.3 g/dL (12.0-15.0); Lymphocyte # 0.97 X10^3/ul (0.83-4.51); Lymphocyte % 11.9 % (19-41); Mean Corp Hgb Conc 31.9 g/dL (32-36); Mean Corpuscular Hgb 29.8 pg (27.0-32.0); Mean Corpuscular Volume 93.4 fL (81-99); Mean Platelet Vol. 11.5 fl (6.2-12.0); Monocyte# 1.13 X10^3/uL; Monocyte% 13.8 % (0-10); NRBC Flagged by Analyzer 0 % (0-5); Neutrophil # 5.08 X10^3/uL (2.7-7.7); Neutrophil % 62.2 % (47-70); Platelet Count 195 K/mm3 (150-450); RBC Distribution Width SD 47.8 fl (35.1-43.9); Red Blood Count 3.46 M/mm3 (4.2-5.4); White Blood Count 8.2 K/mm3 (4.4-11.0)
[2022-03-09 08:32] LABS: Anion Gap 7 (5-15); BUN 13 mg/dL (7-18); BUN/Creat Ratio 16.6 RATIO (10-20); Calcium,Total 8.6 mg/dL (8.5-10.1); Chloride 100 mmol/L (98-107); Creatinine, Serum 0.78 mg/dL (0.55-1.02); EST Glomerular Filtration Rate 74 mL/min (>60); Est Glom Filt Rate - Afr Amer 90 mL/min (>60); Glucose 91 mg/dL (74-106); Sodium Level 134 mmol/L (136-145)
[2022-03-09 08:32] LABS: Color, Urine Yellow (Yellow); Glucose, Dipstick Normal (Normal); Ketone-Dipstick Negative (Negative); Leukocyte Esterase-Dipstick 500 /ul (Negative); Nitrite-Dipstick Positive (Negative); Occult Blood-Urine 50 /ul (Negative); Protein-Dipstick 15 mg/dl (Negative); Specific Gravity, Urine 1.015 (1.002-1.030); Urine Bilirubin Dipstick Negative (Negative); Urine Clarity Cloudy (Clear); Urine Urobilinogen Normal (Normal)
[2022-03-09 08:53] LABS: Bacteria 4+ /hpf (None Seen); Mucous, Urine RARE /hpf (<or=2+); Squamous Epithelial Cells - UA 0-5 SEEN /hpf (5-10); White Blood Cells 50-100 SEEN /hpf (0-5)
== END | disposition home or self-care (01) ==
LOC: OLS.WHLTSB 05:00
PROVIDERS: PCP Internal Medicine; Visit Provider Internal Medicine
DX: R53.83 Other fatigue (principal); J45.909 Unspecified asthma, uncomplicated; H10.45 Other chronic allergic conjunctivitis; E56.8 Deficiency of other vitamins; D64.9 Anemia, unspecified; E88.09 Other disorders of plasma-protein metabolism, not elsewhere classified; Z86.16 Personal history of COVID-19
CPT/HCPCS: 36415; 80048; 81001; 85025; 87077; 87086; 87088; 87186

== ENCOUNTER → 2022-03-15 | Outpatient (REF) | payer MEDICARE, OTHER, SELFPAY ==
[2022-03-15 06:17] LABS: Absolute Lymphocyte Count 1.33 X10^3/uL (0.83-4.51); Absolute Neutrophil Count 2.4 X10^3/uL (2.0-7.7); Basophil# 0.05 X10^3/uL; Basophil% 0.9 % (0-1); Eosinophil# 0.76 X10^3/uL; Eosinophils% 14.3 % (0-5); Hematocrit 32.7 % (37-47); Hemoglobin 10.4 g/dL (12.0-15.0); Lymphocyte # 1.33 X10^3/ul (0.83-4.51); Mean Corp Hgb Conc 31.8 g/dL (32-36); Mean Corpuscular Hgb 29.3 pg (27.0-32.0); Mean Corpuscular Volume 92.1 fL (81-99); Mean Platelet Vol. 11.1 fl (6.2-12.0); Monocyte# 0.76 X10^3/uL; Monocyte% 14.3 % (0-10); NRBC Flagged by Analyzer 0 % (0-5); Neutrophil # 2.38 X10^3/uL (2.7-7.7); Neutrophil % 44.9 % (47-70); Platelet Count 257 K/mm3 (150-450); RBC Distribution Width CV 13.8 % (11.6-14.6); RBC Distribution Width SD 47.4 fl (35.1-43.9); Red Blood Count 3.55 M/mm3 (4.2-5.4); White Blood Count 5.3 K/mm3 (4.4-11.0)
[2022-03-15 06:56] LABS: ALB/GLOB Ratio 0.7 RATIO (0.9-2.4); AST(SGOT) 23 U/L (15-37); Alanine Aminotransfer ALT/SGPT 18 U/L (13-56); Albumin, Serum 2.8 g/dL (3.2-5.0); Alkaline Phosphatase 120 U/L (45-117); Anion Gap 6 (5-15); BUN 14 mg/dL (7-18); BUN/Creat Ratio 14.1 RATIO (10-20); Calcium,Total 8.6 mg/dL (8.5-10.1); Chloride 100 mmol/L (98-107); Creatinine, Serum 0.99 mg/dL (0.55-1.02); EST Glomerular Filtration Rate 56 mL/min (>60); Est Glom Filt Rate - Afr Amer 68 mL/min (>60); Globulin 3.9 g/dL (2.2-4.2); Glucose 87 mg/dL (74-106); Potassium 4.3 mmol/L (3.5-5.1); Protein, Total 6.7 g/dL (6.4-8.2); Sodium Level 133 mmol/L (136-145); Thyroid Stim Hormone (TSH) 1.62 uIU/mL (0.358-3.74)
[2022-03-15 09:26] LABS: Vitamin B12 730 pg/mL (211-911)
== END | disposition home or self-care (01) ==
LOC: OLS.WHLTSB 05:00
PROVIDERS: PCP Internal Medicine; Referring Provider Internal Medicine; Visit Provider Internal Medicine
DX: R53.83 Other fatigue (principal); J45.909 Unspecified asthma, uncomplicated; N39.0 Urinary tract infection, site not specified; H10.45 Other chronic allergic conjunctivitis; E56.8 Deficiency of other vitamins; D64.9 Anemia, unspecified; Z86.16 Personal history of COVID-19
CPT/HCPCS: 36415; 80053; 82607; 84443; 85025

== ENCOUNTER → 2022-04-03 | Outpatient (REF) | payer MEDICARE, OTHER, SELFPAY ==
[2022-04-03 08:36] LABS: Absolute Lymphocyte Count 1.37 X10^3/uL (0.83-4.51); Absolute Neutrophil Count 4.3 X10^3/uL (2.0-7.7); Basophil# 0.05 X10^3/uL; Basophil% 0.7 % (0-1); Eosinophil# 0.52 X10^3/uL; Eosinophils% 7.4 % (0-5); Hematocrit 31.6 % (37-47); Lymphocyte # 1.37 X10^3/ul (0.83-4.51); Lymphocyte % 19.5 % (19-41); Mean Corp Hgb Conc 31.6 g/dL (32-36); Mean Corpuscular Hgb 29.4 pg (27.0-32.0); Mean Corpuscular Volume 92.9 fL (81-99); Mean Platelet Vol. 11.5 fl (6.2-12.0); Monocyte# 0.72 X10^3/uL; Monocyte% 10.2 % (0-10); NRBC Flagged by Analyzer 0 % (0-5); Neutrophil # 4.34 X10^3/uL (2.7-7.7); Neutrophil % 61.8 % (47-70); Platelet Count 209 K/mm3 (150-450); RBC Distribution Width CV 14.7 % (11.6-14.6); RBC Distribution Width SD 50.3 fl (35.1-43.9)
== END | disposition home or self-care (01) ==
LOC: OLS.WHLTSB 05:00
PROVIDERS: PCP Internal Medicine; Visit Provider Internal Medicine
DX: I26.09 Other pulmonary embolism with acute cor pulmonale (principal)
CPT/HCPCS: 36415; 85025

== ENCOUNTER → 2022-05-02 | Outpatient (REF) | payer MEDICARE, OTHER, SELFPAY ==
[2022-05-02 09:29] LABS: Absolute Lymphocyte Count 1.26 X10^3/uL (0.83-4.51); Absolute Neutrophil Count 3.6 X10^3/uL (2.0-7.7); Basophil# 0.05 X10^3/uL; Basophil% 0.7 % (0-1); Eosinophil# 1.02 X10^3/uL; Eosinophils% 15.1 % (0-5); Hematocrit 34.5 % (37-47); Hemoglobin 10.5 g/dL (12.0-15.0); Lymphocyte # 1.26 X10^3/ul (0.83-4.51); Lymphocyte % 18.7 % (19-41); Mean Corp Hgb Conc 30.4 g/dL (32-36); Mean Corpuscular Hgb 28.8 pg (27.0-32.0); Mean Corpuscular Volume 94.5 fL (81-99); Mean Platelet Vol. 11.7 fl (6.2-12.0); Monocyte# 0.78 X10^3/uL; Monocyte% 11.6 % (0-10); NRBC Flagged by Analyzer 0 % (0-5); Neutrophil % 53.3 % (47-70); Platelet Count 234 K/mm3 (150-450); RBC Distribution Width CV 14.4 % (11.6-14.6); RBC Distribution Width SD 50.5 fl (35.1-43.9); Red Blood Count 3.65 M/mm3 (4.2-5.4); White Blood Count 6.8 K/mm3 (4.4-11.0)
== END | disposition home or self-care (01) ==
LOC: OLS.WHLTSB 06:30
PROVIDERS: PCP Internal Medicine; Visit Provider Internal Medicine
DX: I26.09 Other pulmonary embolism with acute cor pulmonale (principal)
CPT/HCPCS: 36415; 85025

== ENCOUNTER → 2022-05-31 | Outpatient (REF) | payer MEDICARE, OTHER, SELFPAY | LOC: OLS.WHLTSB 07:36 | PROVIDERS: PCP Internal Medicine; Visit Provider Internal Medicine | DX: N39.0 Urinary tract infection, site not specified (principal); J45.909 Unspecified asthma, uncomplicated; H10.45 Other chronic allergic conjunctivitis; U07.1 COVID-19; E56.8 Deficiency of other vitamins | CPT/HCPCS: 87086; 87088; 87186 ==

== ENCOUNTER → 2022-06-02 | Outpatient (REF) | payer MEDICARE, OTHER, SELFPAY ==
[2022-06-02 09:31] LABS: Absolute Lymphocyte Count 0.91 X10^3/uL (0.83-4.51); Absolute Neutrophil Count 3.7 X10^3/uL (2.0-7.7); Basophil# 0.05 X10^3/uL; Basophil% 0.8 % (0-1); Eosinophil# 0.49 X10^3/uL; Eosinophils% 8.2 % (0-5); Hematocrit 35.2 % (37-47); Lymphocyte # 0.91 X10^3/ul (0.83-4.51); Lymphocyte % 15.2 % (19-41); Mean Corp Hgb Conc 31.3 g/dL (32-36); Mean Corpuscular Hgb 29.2 pg (27.0-32.0); Mean Corpuscular Volume 93.4 fL (81-99); Mean Platelet Vol. 12.3 fl (6.2-12.0); Monocyte# 0.79 X10^3/uL; Monocyte% 13.2 % (0-10); NRBC Flagged by Analyzer 0 % (0-5); Neutrophil # 3.73 X10^3/uL (2.7-7.7); Neutrophil % 62.4 % (47-70); Platelet Count 180 K/mm3 (150-450); RBC Distribution Width CV 13.5 % (11.6-14.6); RBC Distribution Width SD 46.4 fl (35.1-43.9); Red Blood Count 3.77 M/mm3 (4.2-5.4)
== END ==
LOC: OLS.WHLTSB 05:00
PROVIDERS: PCP Internal Medicine; Visit Provider Internal Medicine
DX: I26.09 Other pulmonary embolism with acute cor pulmonale (principal)
CPT/HCPCS: 36415; 85025

== ENCOUNTER → 2022-07-03 | Outpatient (REF) | payer MEDICARE, OTHER, SELFPAY ==
[2022-07-03 09:14] LABS: Basophil# 0.06 X10^3/uL; Eosinophil# 1.07 X10^3/uL; Eosinophils% 17.1 % (0-5); Hematocrit 34.2 % (37-47); Hemoglobin 10.7 g/dL (12.0-15.0); Lymphocyte % 22.4 % (19-41); Mean Corp Hgb Conc 31.3 g/dL (32-36); Mean Corpuscular Hgb 29.3 pg (27.0-32.0); Mean Corpuscular Volume 93.7 fL (81-99); Mean Platelet Vol. 11.5 fl (6.2-12.0); Monocyte# 0.72 X10^3/uL; Monocyte% 11.5 % (0-10); NRBC Flagged by Analyzer 0 % (0-5); Neutrophil # 2.99 X10^3/uL (2.7-7.7); Neutrophil % 47.8 % (47-70); Platelet Count 255 K/mm3 (150-450); RBC Distribution Width CV 13.7 % (11.6-14.6); RBC Distribution Width SD 46.9 fl (35.1-43.9); Red Blood Count 3.65 M/mm3 (4.2-5.4); White Blood Count 6.3 K/mm3 (4.4-11.0)
== END ==
LOC: OLS.WHLTSB 04:00
PROVIDERS: PCP Internal Medicine; Referring Provider Internal Medicine; Visit Provider Internal Medicine
DX: I26.09 Other pulmonary embolism with acute cor pulmonale (principal)
CPT/HCPCS: 36415; 85025

== ENCOUNTER → 2022-08-02 | Outpatient (REF) | payer MEDICARE, OTHER, SELFPAY ==
[2022-08-02 08:51] LABS: Absolute Neutrophil Count 3.6 X10^3/uL (2.0-7.7); Basophil# 0.06 X10^3/uL; Basophil% 0.9 % (0-1); Eosinophil# 0.96 X10^3/uL; Hematocrit 33.3 % (37-47); Hemoglobin 10.5 g/dL (12.0-15.0); Lymphocyte % 18.8 % (19-41); Mean Corp Hgb Conc 31.5 g/dL (32-36); Mean Corpuscular Hgb 29.1 pg (27.0-32.0); Mean Corpuscular Volume 92.2 fL (81-99); Mean Platelet Vol. 12.3 fl (6.2-12.0); Monocyte# 0.61 X10^3/uL; Monocyte% 9.5 % (0-10); NRBC Flagged by Analyzer 0 % (0-5); Neutrophil # 3.56 X10^3/uL (2.7-7.7); Neutrophil % 55.6 % (47-70); Platelet Count 210 K/mm3 (150-450); RBC Distribution Width CV 14.3 % (11.6-14.6); RBC Distribution Width SD 49.1 fl (35.1-43.9); Red Blood Count 3.61 M/mm3 (4.2-5.4); White Blood Count 6.4 K/mm3 (4.4-11.0)
== END ==
LOC: OLS.WHLTSB 05:00
PROVIDERS: PCP Internal Medicine; Visit Provider Internal Medicine
DX: I26.09 Other pulmonary embolism with acute cor pulmonale (principal)
CPT/HCPCS: 36415; 85025

== ENCOUNTER → 2022-10-24 | Outpatient (REF) | payer MEDICARE, OTHER, SELFPAY ==
[2022-10-24 09:29] LABS: Absolute Lymphocyte Count 0.92 X10^3/uL (0.83-4.51); Absolute Neutrophil Count 3.6 X10^3/uL (2.0-7.7); Basophil# 0.07 X10^3/uL; Basophil% 1.1 % (0-1); Eosinophil# 1.15 X10^3/uL; Eosinophils% 17.3 % (0-5); Hematocrit 36.2 % (37-47); Hemoglobin 11.7 g/dL (12.0-15.0); Lymphocyte # 0.92 X10^3/ul (0.83-4.51); Lymphocyte % 13.8 % (19-41); Mean Corp Hgb Conc 32.3 g/dL (32-36); Mean Corpuscular Hgb 30.2 pg (27.0-32.0); Mean Corpuscular Volume 93.5 fL (81-99); Monocyte# 0.86 X10^3/uL; Monocyte% 12.9 % (0-10); NRBC Flagged by Analyzer 0 % (0-5); Neutrophil # 3.64 X10^3/uL (2.7-7.7); Neutrophil % 54.7 % (47-70); Platelet Count 222 K/mm3 (150-450); RBC Distribution Width CV 13.5 % (11.6-14.6); RBC Distribution Width SD 46.3 fl (35.1-43.9); Red Blood Count 3.87 M/mm3 (4.2-5.4); White Blood Count 6.7 K/mm3 (4.4-11.0)
== END ==
LOC: OLS.WHLTSB 05:00
PROVIDERS: PCP Internal Medicine; Visit Provider Internal Medicine
DX: R05.9 Cough, unspecified (principal); J45.909 Unspecified asthma, uncomplicated; B35.1 Tinea unguium; L02.611 Cutaneous abscess of right foot; H10.45 Other chronic allergic conjunctivitis; E56.8 Deficiency of other vitamins; Z86.16 Personal history of COVID-19
CPT/HCPCS: 36415; 85025

== ENCOUNTER → 2023-01-10 | Outpatient (REF) | payer MEDICARE, OTHER, SELFPAY ==
[2023-01-10 09:01] LABS: Hematocrit 38.2 % (37-47); Hemoglobin 11.9 g/dL (12.0-15.0); Mean Corp Hgb Conc 31.2 g/dL (32-36); Mean Corpuscular Hgb 29.1 pg (27.0-32.0); Mean Corpuscular Volume 93.4 fL (81-99); Mean Platelet Vol. 12.2 fl (6.2-12.0); Platelet Count 188 K/mm3 (150-450); RBC Distribution Width CV 13.6 % (11.6-14.6); RBC Distribution Width SD 46.5 fl (35.1-43.9); Red Blood Count 4.09 M/mm3 (4.2-5.4)
[2023-01-10 09:32] LABS: ALB/GLOB Ratio 0.8 RATIO (0.9-2.4); AST(SGOT) 30 U/L (15-37); Alanine Aminotransfer ALT/SGPT 19 U/L (13-56); Albumin, Serum 3.1 g/dL (3.2-5.0); Alkaline Phosphatase 108 U/L (45-117); Anion Gap 7 (5-15); BUN 15 mg/dL (7-18); BUN/Creat Ratio 19.2 RATIO (10-20); Chloride 103 mmol/L (98-107); Creatinine, Serum 0.78 mg/dL (0.55-1.02); EST Glomerular Filtration Rate 74 mL/min (>60); Est Glom Filt Rate - Afr Amer 89 mL/min (>60); Globulin 3.8 g/dL (2.2-4.2); Glucose 76 mg/dL (74-106); Potassium 4.1 mmol/L (3.5-5.1); Protein, Total 6.9 g/dL (6.4-8.2); Sodium Level 137 mmol/L (136-145)
== END ==
LOC: OLS.WHLTSB 05:00
PROVIDERS: PCP Internal Medicine; Visit Provider Internal Medicine
DX: U07.1 COVID-19 (principal); J45.909 Unspecified asthma, uncomplicated; B35.1 Tinea unguium; L02.611 Cutaneous abscess of right foot; H10.45 Other chronic allergic conjunctivitis
CPT/HCPCS: 36415; 80053; 85027

== ENCOUNTER → 2023-02-19 | Outpatient (REF) | payer MEDICARE, OTHER, SELFPAY ==
[2023-02-19 07:39] LABS: Absolute Lymphocyte Count 1.95 X10^3/uL (0.83-4.51); Absolute Neutrophil Count 3.7 X10^3/uL (2.0-7.7); Basophil% 1.3 % (0-1); Eosinophil# 1.19 X10^3/uL; Eosinophils% 15.2 % (0-5); Hemoglobin 11.4 g/dL (12.0-15.0); Lymphocyte # 1.95 X10^3/ul (0.83-4.51); Lymphocyte % 24.9 % (19-41); Mean Corp Hgb Conc 30.8 g/dL (32-36); Mean Corpuscular Hgb 29.2 pg (27.0-32.0); Mean Corpuscular Volume 94.6 fL (81-99); Mean Platelet Vol. 11.9 fl (6.2-12.0); Monocyte# 0.86 X10^3/uL; NRBC Flagged by Analyzer 0 % (0-5); Neutrophil # 3.71 X10^3/uL (2.7-7.7); Neutrophil % 47.2 % (47-70); POSITIVE MORPHOLOGY YES; Platelet Count 222 K/mm3 (150-450); RBC Distribution Width CV 14.1 % (11.6-14.6); RBC Distribution Width SD 48.8 fl (35.1-43.9); Red Blood Count 3.91 M/mm3 (4.2-5.4); White Blood Count 7.8 K/mm3 (4.4-11.0)
[2023-02-19 08:10] LABS: ALB/GLOB Ratio 0.7 RATIO (0.9-2.4); AST(SGOT) 21 U/L (15-37); Alanine Aminotransfer ALT/SGPT 18 U/L (13-56); Albumin, Serum 2.8 g/dL (3.2-5.0); Alkaline Phosphatase 126 U/L (45-117); Anion Gap 4 (5-15); BUN 18 mg/dL (7-18); Calcium,Total 8.9 mg/dL (8.5-10.1); Chloride 103 mmol/L (98-107); Creatinine, Serum 0.78 mg/dL (0.55-1.02); EST Glomerular Filtration Rate 74 mL/min (>60); Est Glom Filt Rate - Afr Amer 89 mL/min (>60); Globulin 3.8 g/dL (2.2-4.2); Glucose 88 mg/dL (74-106); Protein, Total 6.6 g/dL (6.4-8.2); Sodium Level 136 mmol/L (136-145); Thyroid Stim Hormone (TSH) 2.85 uIU/mL (0.358-3.74)
[2023-02-19 08:14] LABS: Differential Indicated SCAN CRITERIA MET
[2023-02-19 08:55] LABS: Differential Comment SCANNED
[2023-02-19 08:56] LABS: Reactive Lymphocyte 1+
== END ==
LOC: OLS.WHLTSB 05:00
PROVIDERS: PCP Internal Medicine; Visit Provider Internal Medicine
DX: N18.30 Chronic kidney disease, stage 3 unspecified (principal); J45.909 Unspecified asthma, uncomplicated; R29.3 Abnormal posture; U07.1 COVID-19; B35.1 Tinea unguium; L02.611 Cutaneous abscess of right foot; Z79.899 Other long term (current) drug therapy
CPT/HCPCS: 36415; 80053; 84443; 85025

== ENCOUNTER → 2023-04-03 | Outpatient (REF) | payer MEDICARE, OTHER, SELFPAY ==
[2023-04-04 10:35] LABS: Color, Urine Yellow (Yellow); Glucose, Dipstick Normal (Normal); Ketone-Dipstick Negative (Negative); Leukocyte Esterase-Dipstick Negative /ul (Negative); Nitrite-Dipstick Negative (Negative); Occult Blood-Urine Negative /ul (Negative); Protein-Dipstick Negative (Negative); Specific Gravity, Urine 1.015 (1.002-1.030); Urine Bilirubin Dipstick Negative (Negative); Urine Clarity Sl. Cloudy (Clear); Urine Urobilinogen Normal (Normal); Urine pH 6.5 (5.0 - 8.0)
== END ==
LOC: OLS.WHLTSB 16:25
PROVIDERS: PCP Internal Medicine; Visit Provider Internal Medicine
DX: Z79.899 Other long term (current) drug therapy (principal)
CPT/HCPCS: 81002; 87086; 87088

== ENCOUNTER → 2023-05-22 | Outpatient (REF) | payer MEDICARE, OTHER, SELFPAY ==
[2023-05-22 09:49] LABS: Absolute Lymphocyte Count 1.44 X10^3/uL (0.83-4.51); Absolute Neutrophil Count 2.9 X10^3/uL (2.0-7.7); Basophil# 0.06 X10^3/uL; Eosinophil# 0.83 X10^3/uL; Eosinophils% 14.1 % (0-5); Hematocrit 34.2 % (37-47); Hemoglobin 10.7 g/dL (12.0-15.0); Lymphocyte # 1.44 X10^3/ul (0.83-4.51); Lymphocyte % 24.4 % (19-41); Mean Corp Hgb Conc 31.3 g/dL (32-36); Mean Corpuscular Hgb 29.5 pg (27.0-32.0); Mean Corpuscular Volume 94.2 fL (81-99); Mean Platelet Vol. 11.9 fl (6.2-12.0); Monocyte# 0.65 X10^3/uL; NRBC Flagged by Analyzer 0 % (0-5); Neutrophil # 2.91 X10^3/uL (2.7-7.7); Neutrophil % 49.3 % (47-70); Platelet Count 204 K/mm3 (150-450); RBC Distribution Width CV 14.1 % (11.6-14.6); Red Blood Count 3.63 M/mm3 (4.2-5.4); White Blood Count 5.9 K/mm3 (4.4-11.0)
[2023-05-22 11:01] LABS: ALB/GLOB Ratio 0.7 RATIO (0.9-2.4); AST(SGOT) 19 U/L (15-37); Alanine Aminotransfer ALT/SGPT 17 U/L (13-56); Albumin, Serum 2.7 g/dL (3.2-5.0); Alkaline Phosphatase 109 U/L (45-117); Anion Gap 5 (5-15); BUN 21 mg/dL (7-18); BUN/Creat Ratio 25.1 RATIO (10-20); Calcium,Total 8.5 mg/dL (8.5-10.1); Chloride 104 mmol/L (98-107); Creatinine, Serum 0.84 mg/dL (0.55-1.02); EST Glomerular Filtration Rate 68 mL/min (>60); Est Glom Filt Rate - Afr Amer 82 mL/min (>60); Globulin 3.7 g/dL (2.2-4.2); Glucose 89 mg/dL (74-106); Potassium 3.7 mmol/L (3.5-5.1); Protein, Total 6.4 g/dL (6.4-8.2); Sodium Level 137 mmol/L (136-145); Thyroid Stim Hormone (TSH) 3.51 uIU/mL (0.358-3.74)
== END ==
LOC: OLS.WHLTSB 05:00
PROVIDERS: PCP Internal Medicine; Visit Provider Internal Medicine
DX: N18.30 Chronic kidney disease, stage 3 unspecified (principal); J45.909 Unspecified asthma, uncomplicated; R29.3 Abnormal posture; L02.611 Cutaneous abscess of right foot; Z79.899 Other long term (current) drug therapy
CPT/HCPCS: 36415; 80053; 84443; 85025

== ENCOUNTER → 2023-06-06 | Outpatient (REF) | payer MEDICARE, OTHER, SELFPAY ==
[2023-06-06 08:26] LABS: Absolute Neutrophil Count 3.3 X10^3/uL (2.0-7.7); Basophil# 0.05 X10^3/uL; Basophil% 0.8 % (0-1); Eosinophil# 0.85 X10^3/uL; Eosinophils% 14.4 % (0-5); Hematocrit 36.5 % (37-47); Hemoglobin 11.1 g/dL (12.0-15.0); Lymphocyte % 16.9 % (19-41); Mean Corp Hgb Conc 30.4 g/dL (32-36); Mean Corpuscular Hgb 29.3 pg (27.0-32.0); Mean Corpuscular Volume 96.3 fL (81-99); Mean Platelet Vol. 12.2 fl (6.2-12.0); Monocyte# 0.71 X10^3/uL; NRBC Flagged by Analyzer 0 % (0-5); Neutrophil # 3.27 X10^3/uL (2.7-7.7); Neutrophil % 55.6 % (47-70); Platelet Count 195 K/mm3 (150-450); RBC Distribution Width CV 14.1 % (11.6-14.6); RBC Distribution Width SD 49.7 fl (35.1-43.9); Red Blood Count 3.79 M/mm3 (4.2-5.4); White Blood Count 5.9 K/mm3 (4.4-11.0)
[2023-06-06 08:50] LABS: ALB/GLOB Ratio 0.8 RATIO (0.9-2.4); AST(SGOT) 14 U/L (15-37); Alanine Aminotransfer ALT/SGPT 15 U/L (13-56); Albumin, Serum 2.8 g/dL (3.2-5.0); Alkaline Phosphatase 114 U/L (45-117); Anion Gap 3 (5-15); BUN 18 mg/dL (7-18); BUN/Creat Ratio 22.2 RATIO (10-20); Calcium,Total 8.5 mg/dL (8.5-10.1); Chloride 105 mmol/L (98-107); Creatinine, Serum 0.81 mg/dL (0.55-1.02); EST Glomerular Filtration Rate 71 mL/min (>60); Est Glom Filt Rate - Afr Amer 86 mL/min (>60); Globulin 3.5 g/dL (2.2-4.2); Glucose 92 mg/dL (74-106); Potassium 3.8 mmol/L (3.5-5.1); Protein, Total 6.3 g/dL (6.4-8.2); Sodium Level 139 mmol/L (136-145)
[2023-06-06 11:11] LABS: Color, Urine Yellow (Yellow); Glucose, Dipstick Normal (Normal); Ketone-Dipstick Negative (Negative); Leukocyte Esterase-Dipstick 100 /ul (Negative); Nitrite-Dipstick Positive (Negative); Occult Blood-Urine 25 /ul (Negative); Protein-Dipstick 15 mg/dl (Negative); Urine Bilirubin Dipstick Negative (Negative); Urine Clarity Sl. Cloudy (Clear); Urine Urobilinogen Normal (Normal)
== END ==
LOC: OLS.WHLTSB 05:00
PROVIDERS: PCP Internal Medicine; Referring Provider Internal Medicine; Visit Provider Internal Medicine
DX: N18.30 Chronic kidney disease, stage 3 unspecified (principal); J45.909 Unspecified asthma, uncomplicated; Z79.899 Other long term (current) drug therapy
CPT/HCPCS: 36415; 80053; 81002; 85025; 87077; 87086; 87088; 87186

== ENCOUNTER → 2023-07-30 | Outpatient (REF) | payer MEDICARE, OTHER, SELFPAY ==
[2023-07-31 09:24] LABS: Color, Urine Yellow (Yellow); Glucose, Dipstick Normal (Normal); Ketone-Dipstick 5 mg/dl (Negative); Leukocyte Esterase-Dipstick 500 /ul (Negative); Nitrite-Dipstick Positive (Negative); Occult Blood-Urine 250 /ul (Negative); Protein-Dipstick 30 mg/dl (Negative); Specific Gravity, Urine 1.025 (1.002-1.030); Urine Bilirubin Dipstick Negative (Negative); Urine Clarity Cloudy (Clear); Urine Urobilinogen Normal (Normal)
== END ==
LOC: OLS.WHLTSB 19:00
PROVIDERS: PCP Internal Medicine; Visit Provider Internal Medicine
DX: N39.0 Urinary tract infection, site not specified (principal)
CPT/HCPCS: 81002; 87077; 87086; 87088; 87186

== ENCOUNTER → 2023-08-22 | Outpatient (REF) | payer MEDICARE, OTHER, SELFPAY ==
[2023-08-22 08:51] LABS: Absolute Lymphocyte Count 1.45 X10^3/uL (0.83-4.51); Absolute Neutrophil Count 2.4 X10^3/uL (2.0-7.7); Basophil# 0.05 X10^3/uL; Basophil% 0.9 % (0-1); Eosinophil# 0.81 X10^3/uL; Eosinophils% 15.1 % (0-5); Hematocrit 33.1 % (37-47); Hemoglobin 10.3 g/dL (12.0-15.0); Lymphocyte # 1.45 X10^3/ul (0.83-4.51); Mean Corp Hgb Conc 31.1 g/dL (32-36); Mean Corpuscular Hgb 29.5 pg (27.0-32.0); Mean Corpuscular Volume 94.8 fL (81-99); Mean Platelet Vol. 11.7 fl (6.2-12.0); Monocyte# 0.67 X10^3/uL; Monocyte% 12.5 % (0-10); NRBC Flagged by Analyzer 0 % (0-5); Neutrophil # 2.39 X10^3/uL (2.7-7.7); Neutrophil % 44.3 % (47-70); Platelet Count 213 K/mm3 (150-450); RBC Distribution Width CV 13.5 % (11.6-14.6); RBC Distribution Width SD 46.5 fl (35.1-43.9); Red Blood Count 3.49 M/mm3 (4.2-5.4); White Blood Count 5.4 K/mm3 (4.4-11.0)
[2023-08-22 09:31] LABS: ALB/GLOB Ratio 0.8 RATIO (0.9-2.4); AST(SGOT) 20 U/L (15-37); Alanine Aminotransfer ALT/SGPT 17 U/L (13-56); Albumin, Serum 2.7 g/dL (3.2-5.0); Alkaline Phosphatase 113 U/L (45-117); Anion Gap 6 (5-15); BUN 22 mg/dL (7-18); BUN/Creat Ratio 27.7 RATIO (10-20); Calcium,Total 8.2 mg/dL (8.5-10.1); Chloride 102 mmol/L (98-107); EST Glomerular Filtration Rate 72 mL/min (>60); Est Glom Filt Rate - Afr Amer 88 mL/min (>60); Globulin 3.6 g/dL (2.2-4.2); Glucose 84 mg/dL (74-106); Potassium 3.9 mmol/L (3.5-5.1); Protein, Total 6.3 g/dL (6.4-8.2); Sodium Level 136 mmol/L (136-145); Thyroid Stim Hormone (TSH) 4.05 uIU/mL (0.358-3.74)
== END ==
LOC: OLS.WHLTSB 05:00
PROVIDERS: PCP Internal Medicine; Visit Provider Internal Medicine
DX: N18.30 Chronic kidney disease, stage 3 unspecified (principal); Z79.899 Other long term (current) drug therapy
CPT/HCPCS: 36415; 80053; 84443; 85025

== ENCOUNTER 2023-08-25 15:15 | Emergency (ER) | payer MEDICARE, OTHER, SELFPAY ==
[2023-08-25 15:18] VITALS: BP 126/76; PULSE 87; RESP 14; TEMP 36.3; O2SAT 96; BMI 28.3
--- NOTE | 2023-08-25 15:26 | CT_ITS ---
STUDY: CT ABDOMEN AND PELVIS WITH CONTRAST REASON FOR EXAM: Female, 88 years old. Obstruction RADIATION DOSAGE (If Supplied By Facility): CTDIvol = ( 15.13 ) mGy, DLP = ( 761.36 ) mGycm TECHNIQUE: Transaxial images were obtained from the dome of the diaphragm to the symphysis pubis without oral contrast. IV 100mL Isovue-370 was administered. Sagittal and coronal images were reconstructed. Individualized dose optimization techniques were used for this CT. COMPARISON: None. FINDINGS: The visualized lung bases are unremarkable. The visualized portions of the heart are within normal limits. Normal liver. Normal gallbladder and extrahepatic biliary system. Normal spleen. 2 cm cyst in the tail of the pancreas. Normal bilateral adrenal glands. Normal right kidney. There is moderate cortical atrophy of the left kidney, consistent with chronic medical renal disease. There is a small hiatal hernia. Normal small intestine. Mildly dilated air-filled colon suggestive of an ileus. The appendix is visualized and appears normal. Normal abdominal aorta. Normal inferior vena cava. Normal retroperitoneum. Normal urinary bladder. Normal abdominal wall. Mild S-shaped scoliosis of the lumbar spine with degenerative disc disease. Mild compression fracture of L1 which may be acute or chronic with 2 mm retropulsion of the superior endplate into the spinal canal producing mild spinal stenosis. CT/Abdomen/Pelvis W IV Cont ONLY IMPRESSION: 1. Mild colonic ileus. 2. Pancreatic cyst. 3. Mild compression fracture of L1 which may be acute, subacute, or chronic with 2 mm retropulsion into the spinal canal producing mild spinal stenosis. Clinical correlation MRI may be useful. Electronically Signed: Yamil Bianchi MD at 17:14 EDT ,
--- NOTE | 2023-08-25 15:27 | ED.VIS.GI ---
HPI HPI - GI History of Present Illness Chief Complaint: Abd Pain Narrative Narrative: 88-year-old female presents from [facility] facility with no bowel movement for the last 3 days. Her history and physical is limited secondary to Alzheimer's dementia. It was reported by the [facility] that she has not had a bowel movement in 3 days. X-rays were performed and report was sent that it may be more of an ileus, but small bowel obstruction/distal bowel obstruction cannot be ruled out. Patient is unsure if she has had prior surgeries. She states that she has not had nausea and vomiting but states she is unsure. Additionally, she does not know when her last bowel movement is. [facility] Medical History Anemia Asthma Chronic cough COVID-19 Debility Dementia Essential (primary) hypertension Falls Hyperlipidemia Hypothyroidism Non-rheumatic tricuspid valve insufficiency Osteoporosis Pulmonary embolism Right arm pain Home Medications levothyroxine 50 mcg tablet (Synthroid) 50 mcg PO QDAY 02/02/18 [History Last Taken 01/24/22] montelukast 10 mg tablet 10 mg PO DAILY ASTHMA 90 days 02/02/18 [History Last Taken 01/24/22] memantine 10 mg tablet 10 mg PO BID 07/31/19 [History Last Taken 01/24/22] cyanocobalamin (vitamin B-12) 1,000 mcg sublingual tablet 500 mcg sublingual QDAY 09/23/20 [History Last Taken 01/24/22] cholecalciferol (vitamin D3) 50 mcg (2,000 unit) capsule 2,000 unit PO DAILY 06/08/21 [History Last Taken 01/24/22] citalopram 20 mg tablet 20 mg PO QHS 06/08/21 [History Last Taken 01/23/22] omeprazole 20 mg capsule,delayed release 20 mg PO QHS #90 caps 06/14/21 [Rx Last Taken 01/23/22] L. rhamnosus 10 billion cell-vit C 90 mg-zinc 3 mg-eldrbry chew tablet (Culturelle Immune Defense) 1 tab PO DAILY [facility] 01/24/22 [History Last Taken 01/24/22] guaifenesin 100 mg/5 mL oral liquid 200 mg PO Q4H PRN Cough 01/24/22 [History Last Taken Unknown] magnesium hydroxide 400 mg/5 mL oral suspension (Milk of Magnesia) 30 ml PO DAILY PRN Constipation 01/24/22 [History Last Taken Unknown] acetaminophen 325 mg capsule 650 mg PO Q4H PRN 05/19/22 [History Last Taken Unknown] albuterol sulfate 90 mcg/actuation aerosol inhaler 2 puff inhalation 6XD PRN 05/19/22 [History Last Taken Unknown] apixaban 5 mg tablet (Eliquis) 5 mg PO BID 05/19/22 [History Last Taken Unknown] midodrine 2.5 mg tablet 2.5 mg PO BID 05/19/22 [History Last Taken Unknown] handicap placard #1 ea 06/13/23 [Rx Last Taken Unknown] Allergy/AdvReac Type Severity Reaction Status Date / Time No Known Allergies Allergy Verified 08/25/23 15:17 Family History Sister , age 40 Breast cancer Surgical History History of cataract surgery History of mandibular surgery Social History Smoking Status: Never smoker alcohol intake: never substance use type: does not use caffeine: No ROS ROS ED ROS Narrative Unable to obtain from patient secondary to dementia. Constitutional: No fever, no chills. HEENT: No sore throat. No neck pain. No loss of vision. No rhinorrhea. Cardiovascular: No chest pain. No palpitations. No pedal edema. Respiratory: No cough, no shortness of breath. Abdominal: Questionable abdominal pain. No nausea. No vomiting. No bowel movement x3 days according to [facility]. Genitourinary: No dysuria. No hematuria. Musculoskeletal: No myalgias. No arthralgias. Neurologic: No headaches. No dizziness. No lightheadedness. Skin: No rash. No change in color. Psychiatric: No depression. No anxiety. Review of Systems ROS Unobtainable: due to mental condition EXAM Physical Exam Narrative Exam Narrative: Afebrile. Vital signs noted. HEENT: Normocephalic. Atraumatic. PERRL, EOMI. Neck soft and supple. No point tenderness or step off. Cardiovascular: Regular rate and rhythm. No murmurs, rubs, or gallops appreciated. Respiratory: No tachypnea. Lungs clear to auscultation bilaterally. Gastrointestinal: Abdomen soft, diffusely tender, with decreased bowel sounds. No rebound or guarding. Mild distention. Neurological: Awake. Alert. Nonfocal, nonlateralizing. Skin: No rash. Normal color. No pallor. Musculoskeletal: No pedal edema. Full range of motion extremities. Const Vital Signs: 08/25/23 15:18 Temperature 97.3 F L Temperature Source Temporal Pulse Rate 87 Respiratory Rate 14 Blood Pressure 126/76 H Blood Pressure Mean 92 Pulse Ox 96 Oxygen Delivery Method Room Air MDM MDM MDM Narrative Medical decision making narrative: As her history and physical is limited secondary to dementia, concern is for ileus versus bowel obstruction. CT with IV contrast will be obtained after baseline laboratory work. She will be bolused normal saline 1 L intravenously. I reviewed her laboratory work and she has a normal white count of 8.8, hemoglobin stable 11.3, hematocrit 36.8, platelet count normal at 212. Electrolyte panel is grossly unremarkable with normal sodium of 136, potassium 4.6, chloride 100, BUN is slightly elevated at 19 with a creatinine of 0.94, glucose is appropriately elevated at 113 with a normal anion gap/low at 4. Urinalysis is negative for infection and negative for ketones. I do not feel antibiotics are indicated. CT of the abdomen and pelvis radiology report was reviewed and there is mild colonic ileus. She does have bowel sounds on examination. There is also noted L1 vertebral compression fracture. They are unsure if it is chronic versus acute. She has had so many falls according to her daughter who is now at the bedside. While it comments on 2 mm displacement/retropulsion causing spinal stenosis, although the radiology suggest MRI, I discussed this with her daughter, and it was felt that she does not require observation for this. I had a discussion with the patient's daughter. I had discussed observation versus discharge with her daughter. Given her dementia, it was thought best that she should be return to the memory care unit. Additionally, regarding the vertebral compression fracture, it was not felt that narcotic pain medication should be used. She was given a dose of Tylenol prior to discharge. She is receiving physical therapy at the retirement facility. Plan is for discharge with return instructions given. She will follow-up with her primary care provider. Disposition is discharged in stable condition. History & Record Review Discussion w/independent historian: Patient and Family Additional record(s) reviewed:: Prior ED visit Lab Data Attestation: I reviewed the patient's lab results. Labs: Laboratory Results - last 24 hr 08/25/23 08/25/23 15:36 16:44 WBC 8.8 RBC 3.90 L Hgb 11.3 L Hct 36.8 L MCV 94.4 MCH 29.0 MCHC 30.7 L RDW Std Deviation 46.6 H RDW Coeff of [place] 13.5 Plt Count 212 MPV 11.1 Immature Gran % (Auto) 0.200 Neut % (Auto) 74.3 H Lymph % (Auto) 11.4 L [place] % (Auto) 10.2 H Eos % (Auto) 3.6 Baso % (Auto) 0.3 Absolute Neuts (auto) 6.5 Absolute Lymphs (auto) 1.00 Nucleated RBC % 0 Sodium 136 Potassium 4.6 Chloride 100 Carbon Dioxide 32.0 Anion Gap 4 L BUN 19 H Creatinine 0.94 Estim Creat Clear Calc 29.14 Est GFR (MDRD) Af Amer 72 Est GFR (MDRD) Non-Af 59 L BUN/Creatinine Ratio 20.1 H Glucose 113 H Calcium 9.2 Total Bilirubin 0.50 AST 19 ALT 15 Alkaline Phosphatase 128 H Total Protein 7.4 Albumin 3.3 Globulin 4.1 Albumin/Globulin Ratio 0.8 L Lipase 59 Urine Color Yellow Urine Clarity Clear Urine pH 8.0 Ur Specific [place] 1.010 Urine Protein 15 H Urine Glucose (UA) Normal Urine Ketones Negative Urine Occult Blood 10 H Urine Nitrite Negative Urine Bilirubin Negative Urine Urobilinogen Normal Ur Leukocyte Esterase Negative Urine RBC 0 SEEN Urine WBC 0 SEEN Ur Squamous Epith Cells 0 SEEN Urine Bacteria 0 SEEN Urine Mucus 0 SEEN Radiography Diagnostic Testing: Clinical Impression(s) from Imaging Studies Abdomen/Pelvis CT 08/25/23 15:26 IMPRESSION: 1. Mild colonic ileus. 2. Pancreatic cyst. 3. Mild compression fracture of L1 which may be acute, subacute, or chronic with 2 mm retropulsion into the spinal canal producing mild spinal stenosis. Clinical correlation MRI may be useful. Electronically Signed: Yamil Bianchi MD at 17:14 EDT , Discharge Plan Triage Chief Complaint: Abd Pain ED Provider: Sami Mccray Dx/Rx/DC Orders Clinical Impression: Closed compression fracture of L1 vertebra, Ileus Instructions: Ileus, ED Fracture, Vertebral Compression Prescriptions: No Action montelukast 10 mg tablet 10 mg PO DAILY 90 Days Patient Comments: levothyroxine [Synthroid] 50 mcg tablet 50 mcg PO QDAY cyanocobalamin (vitamin B-12) 1,000 mcg tablet, sublingual 500 mcg SUBLINGUAL QDAY memantine 10 mg tablet 10 mg PO BID omeprazole 20 mg capsule,delayed release(DR/EC) 20 mg PO QHS Qty: 90 1RF Rx Instructions: Take at least 4 hours after last meal. citalopram 20 mg tablet 20 mg PO QHS cholecalciferol (vitamin D3) 50 mcg (2,000 unit) capsule 2,000 unit PO DAILY acetaminophen 325 mg capsule 650 mg PO Q4H PRN albuterol sulfate 90 mcg/actuation HFA aerosol inhaler 2 puff inhalation 6XD PRN Eliquis 5 mg tablet 5 mg PO BID guaifenesin 100 mg/5 mL Liquid 200 mg PO Q4H PRN (Reason: Cough) magnesium hydroxide [Milk of Magnesia] 400 mg/5 mL Suspension 30 ml PO DAILY PRN (Reason: Constipation) Culturelle Immune Defense 10 billion cell -90 mg-3 mg Tablet,Chewable 1 tab PO DAILY midodrine 2.5 mg tablet 2.5 mg PO BID Rx Instructions: Hold if SBP>110 or DBP>70 (DME) handicap placard See Rx Instructions .ROUTE .MEDSUPPLY Qty: 1 0RF Rx Instructions: Length of time: 5 years Diagnosis: Impaired physical mobility z74.09 Primary Care Provider: Viridiana Sexton Referrals: Viridiana Sexton MD [Primary Care Provider] - 3-5 Days if not improving Disposition Disposition: Home, Self Care
[2023-08-25] MEDS: 0.9% Normal Saline (1000mL) 1,000 ML 1000 ML IV (15:41)
[2023-08-25 15:43] LABS: Absolute Neutrophil Count 6.5 X10^3/uL (2.0-7.7); Basophil# 0.03 X10^3/uL; Basophil% 0.3 % (0-1); Eosinophil# 0.32 X10^3/uL; Eosinophils% 3.6 % (0-5); Hematocrit 36.8 % (37-47); Hemoglobin 11.3 g/dL (12.0-15.0); Lymphocyte % 11.4 % (19-41); Mean Corp Hgb Conc 30.7 g/dL (32-36); Mean Corpuscular Volume 94.4 fL (81-99); Mean Platelet Vol. 11.1 fl (6.2-12.0); Monocyte% 10.2 % (0-10); NRBC Flagged by Analyzer 0 % (0-5); Neutrophil # 6.52 X10^3/uL (2.7-7.7); Neutrophil % 74.3 % (47-70); Platelet Count 212 K/mm3 (150-450); RBC Distribution Width CV 13.5 % (11.6-14.6); RBC Distribution Width SD 46.6 fl (35.1-43.9); White Blood Count 8.8 K/mm3 (4.4-11.0)
[2023-08-25 15:59] LABS: ALB/GLOB Ratio 0.8 RATIO (0.9-2.4); AST(SGOT) 19 U/L (15-37); Alanine Aminotransfer ALT/SGPT 15 U/L (13-56); Albumin, Serum 3.3 g/dL (3.2-5.0); Alkaline Phosphatase 128 U/L (45-117); Anion Gap 4 (5-15); BUN 19 mg/dL (7-18); BUN/Creat Ratio 20.1 RATIO (10-20); Calcium,Total 9.2 mg/dL (8.5-10.1); Chloride 100 mmol/L (98-107); Creatinine, Serum 0.94 mg/dL (0.55-1.02); EST Glomerular Filtration Rate 59 mL/min (>60); Est Glom Filt Rate - Afr Amer 72 mL/min (>60); Estimated Creatinine Clearance 29.14 ml/min; Globulin 4.1 g/dL (2.2-4.2); Glucose 113 mg/dL (74-106); Lipase 59 U/L (13-75); Potassium 4.6 mmol/L (3.5-5.1); Protein, Total 7.4 g/dL (6.4-8.2); Sodium Level 136 mmol/L (136-145)
[2023-08-25 16:58] LABS: Bacteria 0 SEEN /hpf (None Seen); Mucous, Urine 0 SEEN /hpf (<or=2+); Red Blood Cells-Urine 0 SEEN /hpf (0-5); Squamous Epithelial Cells - UA 0 SEEN /hpf (5-10); White Blood Cells 0 SEEN /hpf (0-5)
[2023-08-25 17:01] LABS: Color, Urine Yellow (Yellow); Glucose, Dipstick Normal (Normal); Ketone-Dipstick Negative (Negative); Leukocyte Esterase-Dipstick Negative /ul (Negative); Nitrite-Dipstick Negative (Negative); Occult Blood-Urine 10 /ul (Negative); Protein-Dipstick 15 mg/dl (Negative); Urine Bilirubin Dipstick Negative (Negative); Urine Clarity Clear (Clear); Urine Urobilinogen Normal (Normal)
[2023-08-25] MEDS: Acetaminophen 325 MG Tablet 650 MG PO (17:34)
--- NOTE | 2023-08-25 17:36 | NURSING ---
CALLED [facility], ETA IS 30 MIN
== END 2023-08-25 18:17 | disposition home or self-care (01) ==
PROVIDERS: Emergency Provider Emergency Medicine; PCP Internal Medicine; Visit Provider Emergency Medicine
DX: M48.56XA Collapsed vertebra, not elsewhere classified, lumbar region, initial encounter for fracture (principal); G30.9 Alzheimer's disease, unspecified; F02.80 Dementia in other diseases classified elsewhere, unspecified severity, without behavioral disturbance, psychotic disturbance, mood disturbance, and anxiety; K56.7 Ileus, unspecified; Z86.16 Personal history of COVID-19; X58.XXXA Exposure to other specified factors, initial encounter
CPT/HCPCS: 74177; 80053; 81001; 83690; 85025; 96360; 96361; 99285; J7030; Q9967; A4216

== ENCOUNTER 2023-08-26 17:21 | Observation (INO) | payer MEDICARE, OTHER, SELFPAY ==
[2023-08-26 17:23] VITALS: BP 125/111; PULSE 72; RESP 18; TEMP 36.3; O2SAT 97; BMI 28.6
[2023-08-26 17:27] VITALS: BP 123/85
--- NOTE | 2023-08-26 17:56 | ED.VIS.GI ---
HPI HPI - GI History of Present Illness Chief Complaint: Constipation Informant: patient, EMS and SNF Narrative Narrative: Patient is a 88-year-old female with history of Alzheimer's dementia presenting back to the ER for constipation. Patient was seen and evaluated in our ER yesterday for concern of constipation. Is been 4 days since her last bowel movement. She had a CT of her abdomen and pelvis performed yesterday for concern of ileus but outpatient x-ray. CT showed mild colonic ileus as well as a compression fracture of L1 age-indeterminate. Patient ultimately been discharged back to nursing facility. Today she received suppository this morning and then tube mineral oil enemas at 1045 and 1415 respectively. She still did not have a bowel movement and was sent back to the ER for a tapwater enema because I do not have the supplies to do that. Per nursing report she is otherwise been in her normal state of health. No report of any vomiting. Patient currently denies abdominal pain but is a very poor historian because of her dementia. She is in a memory care unit at [facility]. [facility] Medical History Anemia Asthma Chronic cough COVID-19 Debility Dementia Essential (primary) hypertension Falls Hyperlipidemia Hypothyroidism Non-rheumatic tricuspid valve insufficiency Osteoporosis Pulmonary embolism Right arm pain Home Medications levothyroxine 50 mcg tablet (Synthroid) 50 mcg PO QDAY 02/02/18 [History Last Taken 01/24/22] montelukast 10 mg tablet 10 mg PO DAILY ASTHMA 90 days 02/02/18 [History Last Taken 01/24/22] memantine 10 mg tablet 10 mg PO BID 07/31/19 [History Last Taken 01/24/22] cyanocobalamin (vitamin B-12) 1,000 mcg sublingual tablet 500 mcg PO QDAY 09/23/20 [History Last Taken 01/24/22] cholecalciferol (vitamin D3) 50 mcg (2,000 unit) capsule 2,000 unit PO DAILY 06/08/21 [History Last Taken 01/24/22] citalopram 20 mg tablet 20 mg PO QHS 06/08/21 [History Last Taken 01/23/22] omeprazole 20 mg capsule,delayed release 20 mg PO QHS #90 caps 06/14/21 [Rx Last Taken 01/23/22] guaifenesin 100 mg/5 mL oral liquid 200 mg PO Q4H PRN Cough 01/24/22 [History Last Taken Unknown] magnesium hydroxide 400 mg/5 mL oral suspension (Milk of Magnesia) 30 ml PO DAILY PRN Constipation 01/24/22 [History Last Taken Unknown] acetaminophen 325 mg capsule 650 mg PO Q4H PRN pain 05/19/22 [History Last Taken Unknown] albuterol sulfate 90 mcg/actuation aerosol inhaler 2 puff inhalation 6XD PRN shortness of breath or wheezing 05/19/22 [History Last Taken Unknown] apixaban 5 mg tablet (Eliquis) 5 mg PO BID 05/19/22 [History Last Taken Unknown] midodrine 2.5 mg tablet 2.5 mg PO BID 05/19/22 [History Last Taken Unknown] handicap placard #1 ea 06/13/23 [Rx Last Taken Unknown] Allergy/AdvReac Type Severity Reaction Status Date / Time No Known Allergies Allergy Verified 08/26/23 21:16 Family History (Updated 08/26/23 @ 20:[address] Melissa Callahan MD) Sister , age 40 Breast cancer Mother CVA (cerebral vascular accident) Father , in his 90s. No significant past medical history Surgical History History of cataract surgery History of mandibular surgery Social History housing: [facility] Smoking Status: Never smoker alcohol intake: never substance use type: does not use caffeine: No ROS ROS ED Review of Systems ROS Unobtainable: due to mental status EXAM Physical Exam Const Vital Signs: 08/26/23 17:23 08/26/23 17:27 08/26/23 19:09 Temperature 97.4 F L Temperature Source Temporal Pulse Rate 72 78 Respiratory Rate 18 15 Blood Pressure 125/111 H 123/85 H 105/79 Blood Pressure Mean 115 97 87 Pulse Ox 97 98 Oxygen Delivery Method Room Air 08/26/23 19:21 Temperature Temperature Source Pulse Rate 78 Respiratory Rate 15 Blood Pressure 105/79 Blood Pressure Mean 87 Pulse Ox 98 Oxygen Delivery Method Room Air Positive well nourished and well developed General Appearance ED: well developed and NAD HEENT Reports moist mucous membranes Eyes EOMs intact bilaterally Neck supple Resp normal respiratory effort Cardio regular rate and regular rhythm GI non-distended GI Narrative: Mild tenderness palpation left lower quadrant. On rectal exam patient has good tone. There are some small stool in the rectal vault but no significant fecal impaction. Auscultation: normoactive bowel sounds Palpation: Negative for tender or guarding Extremity full ROM Neuro Neuro Narrative: At baseline Sensorium / Orientation: alert Psych mental status grossly normal Skin no wounds MDM MDM MDM Narrative Medical decision making narrative: Patient evaluated for continued constipation. Abdomen soft with mild tenderness to left lower quadrant which could be secondary to this previously diagnosed colonic ileus/constipation. Rectal exam does not show any large fecal impaction. Vital signs are normal. Do not think she requires repeat blood work at this time. Will obtain abdominal x-ray to ensure she does not have an obvious obstructive pattern and then give soapsuds enema. Patient does not have good results with soapsuds enema and does not tolerate it well. I am unsure of how much of this is because of her dementia. Because of significant ileus with no improvement despite optimal outpatient management will be admitted for cleanout. Daughter who is at the bedside now is agreeable with this. She does confirm patient's CODE STATUS of DNR CCA. I did add on lab work including a CBC and a CMP which is normal/stable. I do not think she requires a repeat CT from yesterday as she does not have an acute abdomen, acute fever, leukocytosis or change in her symptoms. Case is discussed admitting physician, Dr. Callahan. She will admitted to the general medical floor. Radiography Diagnostic Testing: Clinical Impression(s) from Imaging Studies KUB X-Ray 08/26/23 18:04 IMPRESSION: Moderate colonic distention and perhaps minimal small bowel distention correlate with the comparison CT suggesting ileus without definite obstruction. Electronically Signed: Ke Fisher DO at 18:22 EST , Management Discussion w/another healthcare provider: Hospitalist Discharge Plan Dx/Rx/DC Orders Clinical Impression: Dementia, Ileus Disposition Disposition: Acute Care Hospital [facility] Discharge Date/Time: 08/26/23 20:51
--- NOTE | 2023-08-26 18:04 | RAD_ITS ---
EXAM: XR ABDOMEN, 1 VIEW CLINICAL INDICATION: constipation TECHNIQUE: Frontal supine view of the abdomen/pelvis. COMPARISON: CT abdomen and pelvis, 08/25/2023. FINDINGS: LOWER THORAX: No acute pathology. GASTROINTESTINAL TRACT: Moderate colonic distention and perhaps minimal small bowel distention correlate with the comparison CT suggesting ileus without definite obstruction. ORGANS: Normal as visualized. No organomegaly. No abnormal calcifications. BONES/JOINTS: Degenerative changes and scoliotic curvature of the spine. SOFT TISSUES: No acute pathology. RAD/Abdomen Single View IMPRESSION: Moderate colonic distention and perhaps minimal small bowel distention correlate with the comparison CT suggesting ileus without definite obstruction. Electronically Signed: Ke Fisher DO at 18:22 EST ,
[2023-08-26 19:09] VITALS: BP 105/79; PULSE 78; RESP 15; O2SAT 98
[2023-08-26 19:21] VITALS: BP 105/79; PULSE 78; RESP 15; O2SAT 98
--- NOTE | 2023-08-26 19:56 | HP.PCM.HOS_ITS ---
HPI - General General Date of Admission: 08/26/23 Date of Service: 08/26/23 Chief Complaint: Constipation. HPI Narrative The patient is an 88 y/o F w/ PMHx: CKD stage II per GFR trending, orthostatic hypotension, Asthma with allergic rhinitis, Chronic normocytic anemia, HTN, HLD, Frequent falls, Alzheimer's dementia with unclear behavioral disturbance history, Hx VTE (PE, DVT), Hypothyroidisn, recent 08/25/2023 ED evaluation secondary to lack of bowel movement x 3 days with plain film at their facility with likely ileus but unable to rule out bowel obstruction with no associated nausea or emesis but unclear last bowel movement or flatus pattern given severe underlying Alzheimer's dementia prompting facility sent her to the ED for ev aluation with no acute specific findings on evaluation prompting return to facility now representing 08/26/2023 secondary to lack of bowel movement despite suppository followed up by mineral oil enemas at 10:45 AM as well as 1415 prompting reevaluation. Patient is a poor terrain but denies any specific abdominal pain and is not very aware as to why she is in the ED. Work-up in the ED included T97.4, heart 72, BP 125/111, most recent repeat BP 105/79, respiratory rate 18, 97% on room air, KUB with moderate colonic distention and perhaps minimal small bowel distention with noted comparison CT suggestive of ileus without any obvious definitive obstruction with earlier evaluation 08/25/2023 CT abdomen and pelvis with contrast with noted mild colonic ileus, pancreatic cyst, mild compression fracture L1 with 2 mm retropulsion of the spinal canal producing mild spinal stenosis of unclear chronicity. Patient also most recently had labs on ED visit 08/25/2023 with WBC 8.8, hemoglobin 1.3, MCV 9 4.4, platelet 212 without marked shift, CMP with BUN/2019/0.94, glucose 113, alk phos 128 otherwise panic profile not marked appearing, lipase 59, urinalysis without any obvious evidence of UTI. Repeat CBC and CMP pending upon request evaluation of patient. [facility] Medical History Anemia Asthma Chronic cough COVID-19 Debility Dementia Essential (primary) hypertension Falls Hyperlipidemia Hypothyroidism Non-rheumatic tricuspid valve insufficiency Osteoporosis Pulmonary embolism Right arm pain Home Medications levothyroxine 50 mcg tablet (Synthroid) 50 mcg PO QDAY 02/02/18 [History Last Taken 01/24/22] montelukast 10 mg tablet 10 mg PO DAILY ASTHMA 90 days 02/02/18 [History Last Taken 01/24/22] memantine 10 mg tablet 10 mg PO BID 07/31/19 [History Last Taken 01/24/22] cyanocobalamin (vitamin B-12) 1,000 mcg sublingual tablet 500 mcg PO QDAY 09/23/20 [History Last Taken 01/24/22] cholecalciferol (vitamin D3) 50 mcg (2,000 unit) capsule 2,000 unit PO DAILY 06/08/21 [History Last Taken 01/24/22] citalopram 20 mg tablet 20 mg PO QHS 06/08/21 [History Last Taken 01/23/22] omeprazole 20 mg capsule,delayed release 20 mg PO QHS #90 caps 06/14/21 [Rx Last Taken 01/23/22] guaifenesin 100 mg/5 mL oral liquid 200 mg PO Q4H PRN Cough 01/24/22 [History Last Taken Unknown] magnesium hydroxide 400 mg/5 mL oral suspension (Milk of Magnesia) 30 ml PO DAILY PRN Constipation 01/24/22 [History Last Taken Unknown] acetaminophen 325 mg capsule 650 mg PO Q4H PRN pain 05/19/22 [History Last Taken Unknown] albuterol sulfate 90 mcg/actuation aerosol inhaler 2 puff inhalation 6XD PRN shortness of breath or wheezing 05/19/22 [History Last Taken Unknown] apixaban 5 mg tablet (Eliquis) 5 mg PO BID 05/19/22 [History Last Taken Unknown] midodrine 2.5 mg tablet 2.5 mg PO BID 05/19/22 [History Last Taken Unknown] handicap placard #1 ea 06/13/23 [Rx Last Taken Unknown] Allergy/AdvReac Type Severity Reaction Status Date / Time No Known Allergies Allergy Verified 08/26/23 17:23 Family History (Updated 08/26/23 @ 20:[address] Melissa Callahan MD) Sister , age 40 Breast cancer Mother CVA (cerebral vascular accident) Father , in his 90s. No significant past medical history Surgical History History of cataract surgery History of mandibular surgery Social History housing: detention Smoking Status: Never smoker alcohol intake: never substance use type: does not use caffeine: No ROS ROS Narrative Admission Review of Systems: CONSTITUTIONAL: No weight loss, fever, chills, + weakness or fatigue. HEENT: Eyes: No visual loss, blurred vision, double vision or yellow sclerae. Ears, Nose, Throat: No hearing loss, sneezing, congestion, runny nose or sore throat. SKIN: No rash or itching, lesions, wounds. CARDIOVASCULAR: No chest pain, chest pressure or chest discomfort, palpitations, edema, orthopnea, syncopal events. RESPIRATORY: No shortness of breath, cough or sputum, wheezing, hemoptysis. GASTROINTESTINAL: + Constipation. No anorexia, nausea, vomiting or diarrhea, melena, BRBPR. GENITOURINARY: No dysuria, frequency, urgency or retention. NEUROLOGICAL: + Dementia, chronic memory impairment, frequent falls. No headache, dizziness, syncope, paralysis, ataxia, numbness or tingling in the extremities, focal weakness, change in bowel or bladder control, seizure. MUSCULOSKELETAL: + muscle, back pain, joint pain or stiffness. HEMATOLOGIC: + anemia, easy bleeding/bruising. LYMPHATICS: No enlarged nodes. No history of splenectomy. PSYCHIATRIC: + history of depression or anxiety. ENDOCRINOLOGIC: No reports of sweating, cold or heat intolerance. No polyuria or polydipsia. ALLERGIES: + history of asthma, rhinitis. Vital Signs Vital Signs Vital Signs: 08/26/23 17:23 08/26/23 17:27 08/26/23 19:09 Temperature 97.4 F L Temperature Source Temporal Pulse Rate 72 78 Respiratory Rate 18 15 Blood Pressure 125/111 H 123/85 H 105/79 Blood Pressure Mean 115 97 87 Pulse Ox 97 98 Oxygen Delivery Method Room Air Weight Weight: 146 lb 13.246 oz Body Mass Index (BMI) 28.6 Physical Exam Narrative Physical Examination: General: Awake, alert, oriented to self and daughter present but does have significant underlying Alzheimer's dementia, hard of hearing, remains cooperative, laying in the ED bed, mildly anxious. Skin: Normal color, normal turgor, no icterus, no cyanosis except occasional staged ecchymoses. HEENT: AT/NC, EOMI, PERRLA, mildly dry MM, no carotid bruits or JVD noted. Lungs: Mildly diminished, greater bases, proper effort no rales, ronchi or wheezing. Heart: Regular rate and rhythm; no gallop, rub audible. Abdomen: Soft, no marked grimacing or discomfort apparent with evaluation, mildly distended, mildly tympanitic, hyperactive BS, no appreciated HSM. Extremities: No cyanosis, clubbing, or edema. Neurological: Patient awake, alert, oriented as noted, cognitive function decreased baseline with underlying Alzheimer's dementia, currently appears intact; pupils equally reactive to light and accommodation, cranial nerves grossly normal, moving all 4 extremities, strength moderately to severely global decreased secondary to acute presentation underlying comorbidities Psychiatric: Affect appears anxious, no acute evidence of depressive feelings. Results Lab / Micro Data 08/26/23 19:57 08/26/23 19:57 Radiology Impression KUB X-Ray 08/26/23 18:04 IMPRESSION: Moderate colonic distention and perhaps minimal small bowel distention correlate with the comparison CT suggesting ileus without definite obstruction. Electronically Signed: Ke Fisher, DO at 18:22 EST , Assessment & Plan Assessment/Plan (1) Ileus: PLAN: Plan The patient is an 88 y/o F w/ PMHx: CKD stage II per GFR trending, orthostatic hypotension, Asthma with allergic rhinitis, Chronic normocytic anemia, HTN, HLD, Frequent falls, Alzheimer's dementia with unclear behavioral disturbance history, Hx VTE (PE, DVT), Hypothyroidisn, recent 08/25/2023 ED evaluation secondary to lack of bowel movement x 3 days with unremarkable ED evaluation however despite return to facility and attempted interventions no bowel movement prompting ED return 08/26/2023 for reevaluation. #1. Possible Colonic Ileus, Acute Constipation: Will admit to MS, maintain on judicious IVFs, strict I&Os, IV pain/anti-emetics PRN, serial KUB as needed to montior bowel function, PPI, allow clears only until BM onset then advance diet as tolerated, will start scheduled golytely as well as [place] dulcolax. #2. Mild compression fracture L1 with 2 mm retropulsion with mild spinal canal stenosis resulting of unclear chronicity: CT abdomen and pelvis with contrast with noted mild colonic ileus, pancreatic cyst, mild compression fracture L1 with 2 mm retropulsion of the spinal canal producing mild spinal stenosis of unclear chronicity, maintain on fall precautions, frequent positional changes, PT/OT/case management consulted, given no significant pain do suspect likely chronic, may consider orthospine consultation outpatient if concerns arise. #3. Alzheimer's dementia with unclear behavioral disturbance history: We will continue patient home memantine home regimen, complicates presentation, maintain on fall precautions, PT/OT/case management consulted for discharge planning. #4. Chronic asthma with allergic rhinitis: Per current list on on chronic regimen, will have PRN albuterol, HOB, IS parameters, continue patient chronic home montelukast regimen. #5. Chronic Kidney Disease Stage II per review of GFR trending primarily 60-70 range since 02/14/2022: Recent 08/25/2023 BUN/creatinine 19/0.94, baseline renal function primarily 0.7-0.9, repeat BMP in AM. #6. Chronic normocytic anemia: Recent 08/25/2023 hemoglobin 11.3, MCV 94.4, baseline hemoglobin appears 10-11, stable, will repeat CBC in a.m. #7. Frequent falls with orthostatic hypotension: We will continue patient chronic midodrine regimen, maintain fall precautions. #8. Hypothyroidism: We will continue patient on levothyroxine regimen. TSH and FT requested. #9. Anxiety and depression: We will continue patient home citalopram regimen. #10. History VTE: Patient with history DVT, PE, continue patient home low-dose apixaban regimen. #11. Overweight: Weight loss and lifestyle changes encouraged. #12. GERD: Continue home PPI. #13. DVT prophylaxis: We will continue patient home low-dose apixaban, given frequent falls certainly high risk but history of VTE is noted. #14. CODE status: Patient HCPLINUS is her daughter who is present and living will is currently in place. Discussed CODE status at length including difference between FULL code, DNR-CCA and DNR-CC status. Following discussions about the differences in these status, requested continuation DNR-CCA, no intubation status. Charges/Coding Visit Charges Inpatient E&M: 74696 Init Hosp L2
[2023-08-26 20:05] LABS: Absolute Lymphocyte Count 1.19 X10^3/uL (0.83-4.51); Absolute Neutrophil Count 4.7 X10^3/uL (2.0-7.7); Basophil# 0.05 X10^3/uL; Basophil% 0.7 % (0-1); Eosinophil# 0.56 X10^3/uL; Eosinophils% 7.8 % (0-5); Hematocrit 35.3 % (37-47); Hemoglobin 10.9 g/dL (12.0-15.0); Lymphocyte # 1.19 X10^3/ul (0.83-4.51); Lymphocyte % 16.6 % (19-41); Mean Corp Hgb Conc 30.9 g/dL (32-36); Mean Corpuscular Hgb 29.1 pg (27.0-32.0); Mean Corpuscular Volume 94.4 fL (81-99); Mean Platelet Vol. 11.4 fl (6.2-12.0); Monocyte# 0.68 X10^3/uL; Monocyte% 9.5 % (0-10); NRBC Flagged by Analyzer 0 % (0-5); Neutrophil # 4.69 X10^3/uL (2.7-7.7); Neutrophil % 65.1 % (47-70); Platelet Count 210 K/mm3 (150-450); RBC Distribution Width CV 13.3 % (11.6-14.6); RBC Distribution Width SD 46.4 fl (35.1-43.9); Red Blood Count 3.74 M/mm3 (4.2-5.4); White Blood Count 7.2 K/mm3 (4.4-11.0)
[2023-08-26 20:31] LABS: ALB/GLOB Ratio 0.8 RATIO (0.9-2.4); AST(SGOT) 21 U/L (15-37); Alanine Aminotransfer ALT/SGPT 17 U/L (13-56); Albumin, Serum 3.2 g/dL (3.2-5.0); Alkaline Phosphatase 117 U/L (45-117); Anion Gap 6 (5-15); BUN 16 mg/dL (7-18); BUN/Creat Ratio 18.7 RATIO (10-20); Calcium,Total 8.8 mg/dL (8.5-10.1); Chloride 99 mmol/L (98-107); Creatinine, Serum 0.85 mg/dL (0.55-1.02); EST Glomerular Filtration Rate 67 mL/min (>60); Est Glom Filt Rate - Afr Amer 81 mL/min (>60); Estimated Creatinine Clearance 32.23 ml/min; Globulin 3.8 g/dL (2.2-4.2); Glucose 83 mg/dL (74-106); Potassium 4.2 mmol/L (3.5-5.1); Sodium Level 135 mmol/L (136-145)
[2023-08-26 20:51] VITALS: BMI 26.9
[2023-08-26 21:15] VITALS: BP 129/74; PULSE 66; RESP 18; TEMP 36.7; O2SAT 97
[2023-08-26] MEDS: 0.9% Normal Saline (1000mL) 1,000 ML 75 ML IV (22:19)
[2023-08-26] MEDS: Electrolyte Solution/Peg's 4000 ML 2000 ML PO (22:19)
[2023-08-26] MEDS: Bisacodyl 10 MG Suppository RC (22:19)
[2023-08-26 23:01] VITALS: O2SAT 96
[2023-08-27 03:15] VITALS: BP 133/65; PULSE 70; RESP 16; TEMP 36.7; O2SAT 96
[2023-08-27 05:20] LABS: Absolute Lymphocyte Count 1.03 X10^3/uL (0.83-4.51); Absolute Neutrophil Count 5.6 X10^3/uL (2.0-7.7); Basophil# 0.05 X10^3/uL; Basophil% 0.6 % (0-1); Eosinophil# 0.73 X10^3/uL; Eosinophils% 8.9 % (0-5); Hematocrit 33.9 % (37-47); Hemoglobin 10.5 g/dL (12.0-15.0); Lymphocyte # 1.03 X10^3/ul (0.83-4.51); Lymphocyte % 12.5 % (19-41); Mean Corpuscular Hgb 29.1 pg (27.0-32.0); Mean Corpuscular Volume 93.9 fL (81-99); Mean Platelet Vol. 11.2 fl (6.2-12.0); Monocyte# 0.77 X10^3/uL; Monocyte% 9.4 % (0-10); NRBC Flagged by Analyzer 0 % (0-5); Neutrophil # 5.63 X10^3/uL (2.7-7.7); Neutrophil % 68.4 % (47-70); Platelet Count 200 K/mm3 (150-450); RBC Distribution Width CV 13.2 % (11.6-14.6); RBC Distribution Width SD 46.1 fl (35.1-43.9); Red Blood Count 3.61 M/mm3 (4.2-5.4); White Blood Count 8.2 K/mm3 (4.4-11.0)
[2023-08-27 06:00] VITALS: BMI 27.1
[2023-08-27] MEDS: Levothyroxine 50 MCG Tablet PO (06:03)
[2023-08-27 06:09] LABS: ALB/GLOB Ratio 0.7 RATIO (0.9-2.4); AST(SGOT) 20 U/L (15-37); Alanine Aminotransfer ALT/SGPT 15 U/L (13-56); Albumin, Serum 2.7 g/dL (3.2-5.0); Alkaline Phosphatase 109 U/L (45-117); Anion Gap 9 (5-15); BUN 14 mg/dL (7-18); BUN/Creat Ratio 20.3 RATIO (10-20); Calcium,Total 8.2 mg/dL (8.5-10.1); Chloride 101 mmol/L (98-107); Creatinine, Serum 0.69 mg/dL (0.55-1.02); EST Glomerular Filtration Rate 85 mL/min (>60); Est Glom Filt Rate - Afr Amer 103 mL/min (>60); Estimated Creatinine Clearance 27.39 ml/min; Globulin 3.7 g/dL (2.2-4.2); Glucose 77 mg/dL (74-106); Potassium 4.1 mmol/L (3.5-5.1); Protein, Total 6.4 g/dL (6.4-8.2); Sodium Level 135 mmol/L (136-145); T4 Free Direct 1.15 ng/dL (0.76-1.46); Thyroid Stim Hormone (TSH) 2.05 uIU/mL (0.358-3.74)
[2023-08-27 07:34] VITALS: O2SAT 96
--- NOTE | 2023-08-27 07:40 | PCM.PN.HOSP ---
Reason for Visit Reason for Visit: Diagnoses Ileus, unspecified (08/26/23) Subjective Subjective Had some BM. Denies abdominal pain. Objective Data Objective Data Vital Signs: Vital Signs Temp Pulse Resp BP Pulse Ox O2 Del Method 36.7 C 70 16 133/65 H 96 Room Air 08/27/23 03:15 08/27/23 03:15 08/27/23 03:15 08/27/23 03:15 08/27/23 03:15 08/27/23 03:15 Oxygen Delivery Method Room Air Weight: 63 kg Body Mass Index (BMI) 27.1 Intake & Output: Intake and Output for Last 24 Hours 08/26/23 08/26/23 08/27/23 00:59 23:59 23:59 Intake Total 360 / 360 Balance 360 / 360 Lab / Micro Data 08/27/23 04:50 08/27/23 04:50 Labs: Laboratory Results - last 24 hr 08/26/23 19:57: WBC 7.2, RBC 3.74 L, Hgb 10.9 L, Hct 35.3 L, MCV 94.4, MCH 29.1, MCHC 30.9 L, RDW Std Deviation 46.4 H, RDW Coeff of Macarena 13.3, Plt Count 210, MPV 11.4, Immature Gran % (Auto) 0.300, Neut % (Auto) 65.1, Lymph % (Auto) 16.6 L, Butler % (Auto) 9.5, Eos % (Auto) 7.8 H, Baso % (Auto) 0.7, Absolute Neuts (auto) 4.7, Absolute Lymphs (auto) 1.19, Nucleated RBC % 0, Sodium 135 L, Potassium 4.2, Chloride 99, Carbon Dioxide 30.0, Anion Gap 6, BUN 16, Creatinine 0.85, Estim Creat Clear Calc 32.23, Est GFR (MDRD) Af Amer 81, Est GFR (MDRD) Non-Af 67, BUN/Creatinine Ratio 18.7, Glucose 83, Calcium 8.8, Total Bilirubin 0.40, AST 21, ALT 17, Alkaline Phosphatase 117, Total Protein 7.0, Albumin 3.2, Globulin 3.8, Albumin/Globulin Ratio 0.8 L 08/27/23 04:50: WBC 8.2, RBC 3.61 L, Hgb 10.5 L, Hct 33.9 L, MCV 93.9, MCH 29.1, MCHC 31.0 L, RDW Std Deviation 46.1 H, RDW Coeff of Macarena 13.2, Plt Count 200, MPV 11.2, Immature Gran % (Auto) 0.200, Neut % (Auto) 68.4, Lymph % (Auto) 12.5 L, Butler % (Auto) 9.4, Eos % (Auto) 8.9 H, Baso % (Auto) 0.6, Absolute Neuts (auto) 5.6, Absolute Lymphs (auto) 1.03, Nucleated RBC % 0, Sodium 135 L, Potassium 4.1, Chloride 101, Carbon Dioxide 25.0, Anion Gap 9, BUN 14, Creatinine 0.69, Estim Creat Clear Calc 27.39, Est GFR (MDRD) Af Amer 103, Est GFR (MDRD) Non-Af 85, BUN/Creatinine Ratio 20.3 H, Glucose 77, Calcium 8.2 L, Total Bilirubin 0.50, AST 20, ALT 15, Alkaline Phosphatase 109, Total Protein 6.4, Albumin 2.7 L, Globulin 3.7, Albumin/Globulin Ratio 0.7 L, TSH 2.05, Free T4 1.15 Radiography Diagnostic Testing: Radiology Impression KUB X-Ray 08/26/23 18:04 IMPRESSION: Moderate colonic distention and perhaps minimal small bowel distention correlate with the comparison CT suggesting ileus without definite obstruction. Electronically Signed: Ke Fisher, at 18:22 EST , Physical Exam Const alert and no apparent distress HEENT head/scalp atraumatic and moist oral mucous membranes Resp normal respiratory effort, no retractions, no use of accessory muscles and clear to auscultation bilaterally Cardio regular rate, regular rhythm, S1 normal heart sound and S2 normal heart sound GI normal to inspection, nondistended, normoactive bowel sounds, soft to palpation, non-tender and non-distended Neuro Sensorium / Orientation: awake Assessment & Plan Assessment/Plan (1) Ileus: PLAN: Possible Colonic Ileus, Acute Constipation: Will admit to MS, maintain on judicious IVFs, strict I&Os, IV pain/anti-emetics PRN, serial KUB as needed to montior bowel function, PPI, allow clears only until BM onset then advance diet as tolerated, will start scheduled golytely as well as [place] dulcolax. PLAN: Plan Chronic conditions: Mild compression fracture L1 with 2 mm retropulsion with mild spinal canal stenosis resulting of unclear chronicity: CT abdomen and pelvis with contrast with noted mild colonic ileus, pancreatic cyst, mild compression fracture L1 with 2 mm retropulsion of the spinal canal producing mild spinal stenosis of unclear chronicity, maintain on fall precautions, frequent positional changes, PT/OT/case management consulted, given no significant pain do suspect likely chronic, may consider orthospine consultation outpatient if concerns arise. Alzheimer's dementia with unclear behavioral disturbance history: We will continue patient home memantine home regimen, complicates presentation, maintain on fall precautions, PT/OT/case management consulted for discharge planning. Chronic asthma with allergic rhinitis: Per current list on on chronic regimen, will have PRN albuterol, HOB, IS parameters, continue patient chronic home montelukast regimen. Chronic Kidney Disease Stage II per review of GFR trending primarily 60-70 range since 02/14/2022: Recent 08/25/2023 BUN/creatinine 19/0.94, baseline renal function primarily 0.7-0.9, repeat BMP in AM. Chronic normocytic anemia: Recent 08/25/2023 hemoglobin 11.3, MCV 94.4, baseline hemoglobin appears 10-11, stable, will repeat CBC in a.m. Frequent falls with orthostatic hypotension: We will continue patient chronic midodrine regimen, maintain fall precautions. Hypothyroidism: We will continue patient on levothyroxine regimen. TSH and FT requested. Anxiety and depression: We will continue patient home citalopram regimen. History VTE: Patient with history DVT, PE, continue patient home low-dose apixaban regimen. Overweight: Weight loss and lifestyle changes encouraged. GERD: Continue home PPI. DVT prophylaxis: We will continue patient home low-dose apixaban, given frequent falls certainly high risk but history of VTE is noted. CODE status: DNR-CCA, no intubation status. DW patient's daughter at bedside. Charges/Coding Visit Charges Inpatient E&M: 57841 Subs Hosp L2
[2023-08-27] MEDS: Memantine Hydrochloride 10 MG Tablet PO ×2 (08:26→21:31)
[2023-08-27] MEDS: APIXABAN 5 MG TABLET PO ×2 (08:26→21:31)
[2023-08-27] MEDS: Midodrine HCl 5 MG Tablet 2.5 MG PO ×2 (08:26→21:31)
[2023-08-27] MEDS: Montelukast 10 MG Tablet PO (08:27)
[2023-08-27 08:32] VITALS: BP 140/65; PULSE 75; RESP 16; TEMP 36.6; O2SAT 93
[2023-08-27] MEDS: Acetaminophen 325 MG Tablet 650 MG PO ×2 (08:45→21:35)
--- NOTE | 2023-08-27 08:51 | CASEMGMT ---
Addendum entered by Yaz Huitron 08/27/23 10:43: Social Work Daughter brought in updated POA and LW papers, placed copies on chart, Adrianna Teague is POA. JESSICA Kunz Original Note: Social Work LW/POA both scanned into [employer], pt has Jose Ramon Castillo as POA, Nevin Roque as first alternate and Adrianna Teague as second alternate. JESSICA Kunz
--- NOTE | 2023-08-27 10:04 | CASEMGMT ---
Addendum entered by Yaz Huitron 08/27/23 10:44: Social Work SW met w/daughter in room, plan is for pt to return to [facility] at discharge, she has been there for 5 years. No list of snf facilities are needed. tushar Hudson/c activity coordinator, will send updates to [facility]. JESSICA Kunz Original Note: Social Work SW is alert and oriented to self only as per RN, so SW will not be completing SDOH. Pt has Alzheimer's dementia. SW called daughter, message left to confirm if plan will be for pt to return to [facility] at discharge. JESSICA Kunz
--- NOTE | 2023-08-27 11:09 | CASEMGMT ---
Discharge Planning Updates sent to [facility] Becca Springer, Discharge Planning Asst.
--- NOTE | 2023-08-27 13:41 | NURSING ---
Pt removed IV, notified lay Mcclain with no access at this time.
[2023-08-27 14:23] VITALS: BP 110/60; PULSE 71; RESP 14; TEMP 37.2; O2SAT 96
--- NOTE | 2023-08-27 15:42 | CASEMGMT ---
Met with patient and her daughter to complete SIMMONS form. SIMMONS form explained to both who voiced understanding. Patient requested that her daughter sign form. Original form placed in pt?s chart and copy provided to?patient. Becca Springer, Discharge Planning Asst
[2023-08-27 21:30] VITALS: BP 138/66; PULSE 67; RESP 20; TEMP 36.6; O2SAT 95
[2023-08-27] MEDS: Citalopram 20 MG Tablet PO (21:31)
[2023-08-27] MEDS: Pantoprazole Sodium 20 MG Tablet PO (21:33)
[2023-08-27] MEDS: MELATONIN 3 MG TABLET PO (21:35)
[2023-08-28 04:10] VITALS: BP 141/82; PULSE 93; RESP 18; TEMP 36.7; O2SAT 94
[2023-08-28 04:21] VITALS: BMI 27.8
[2023-08-28] MEDS: Levothyroxine 50 MCG Tablet PO (05:49)
[2023-08-28] MEDS: 0.9% Saline Lock 10 ML Syringe IV (05:52)
[2023-08-28 07:30] VITALS: O2SAT 93
--- NOTE | 2023-08-28 07:52 | PN.HOSP_ITS ---
Reason for Visit Reason for Visit: Diagnoses Ileus, unspecified (08/26/23) Subjective Subjective Denies complaints. Objective Data Objective Data Vital Signs: Vital Signs Temp Pulse Resp BP Pulse Ox O2 Del Method 36.7 C 93 18 141/82 H 94 Room Air 08/28/23 04:10 08/28/23 04:10 08/28/23 04:10 08/28/23 04:10 08/28/23 04:10 08/28/23 04:10 Oxygen Delivery Method Room Air Weight: 64.6 kg Body Mass Index (BMI) 27.8 Intake & Output: Intake and Output for Last 24 Hours 08/26/23 08/27/23 08/28/23 23:59 23:59 23:59 Intake Total 1706.25 / 1706.25 100 / 100 Output Total 100 / 100 Balance 1606.25 / 1606.25 100 / 100 Lab / Micro Data 08/27/23 04:50 08/27/23 04:50 Physical Exam Const alert and no apparent distress Resp normal respiratory effort, no retractions, no use of accessory muscles and clear to auscultation bilaterally GI normal to inspection, nondistended, normoactive bowel sounds, soft to palpation, non-tender, non-distended and hepatosplenomegaly Assessment & Plan Assessment/Plan (1) Ileus: PLAN: Possible Colonic Ileus, Acute Constipation: Will admit to MS, maintain on judicious IVFs, strict I&Os, IV pain/anti-emetics PRN, serial KUB as needed to m ontior bowel function, PPI, allow clears only until BM onset then advance diet as tolerated, will start scheduled golytely as well as [place] dulcolax. Improving. Advance diet. PLAN: Plan Chronic conditions: * Mild compression fracture L1 with 2 mm retropulsion with mild spinal canal stenosis resulting of unclear chronicity: CT abdomen and pelvis with contrast with noted mild colonic ileus, pancreatic cyst, mild compression fracture L1 with 2 mm retropulsion of the spinal canal producing mild spinal stenosis of unclear chronicity, maintain on fall precautions, frequent positional changes, PT/OT/case management consulted, given no significant pain do suspect likely chronic, may consider orthospine consultation outpatient if concerns arise. * Alzheimer's dementia with unclear behavioral disturbance history: We will continue patient home memantine home regimen, complicates presentation, maintain on fall precautions, PT/OT/case management consulted for discharge planning. * Chronic asthma with allergic rhinitis: Per current list on on chronic regimen, will have PRN albuterol, HOB, IS parameters, continue patient chronic home montelukast regimen. * Chronic Kidney Disease Stage II per review of GFR trending primarily 60-70 range since 02/14/2022: Recent 08/25/2023 BUN/creatinine 19/0.94, baseline renal function primarily 0.7-0.9, repeat BMP in AM. * Chronic normocytic anemia: Recent 08/25/2023 hemoglobin 11.3, MCV 94.4, baseline hemoglobin appears 10-11, stable, will repeat CBC in a.m. * Frequent falls with orthostatic hypotension: We will continue patient chronic midodrine regimen, maintain fall precautions. * Hypothyroidism: We will continue patient on levothyroxine regimen. TSH and FT requested. * Anxiety and depression: We will continue patient home citalopram regimen. * History VTE: Patient with history DVT, PE, continue patient home low-dose apixaban regimen. * Overweight: Weight loss and lifestyle changes encouraged. * GERD: Continue home PPI. DVT prophylaxis: We will continue patient home low-dose apixaban, given frequent falls certainly high risk but history of VTE is noted. CODE status: DNR-CCA, no intubation status. Disposition: TBD. Eventually to [facility]. Charges/Coding Visit Charges Inpatient E&M: 26659 Subs Hosp L2
[2023-08-28 09:10] VITALS: BP 127/63; PULSE 72; RESP 18; TEMP 36.9; O2SAT 92
[2023-08-28] MEDS: Montelukast 10 MG Tablet PO (09:33)
[2023-08-28] MEDS: Midodrine HCl 5 MG Tablet 2.5 MG PO (09:33)
[2023-08-28] MEDS: APIXABAN 5 MG TABLET PO (09:34)
[2023-08-28] MEDS: Memantine Hydrochloride 10 MG Tablet PO (09:34)
[2023-08-28 09:41] VITALS: O2SAT 92
[2023-08-28] MEDS: Acetaminophen 325 MG Tablet 650 MG PO (11:26)
--- NOTE | 2023-08-28 15:21 | PCM.DC ---
Discharge Instructions Diet Discharge Diet: - (bland diet, advance as tolerated. ) Dressing / Incision Call your doctor if you observe: - (worsening abdominal pain. ) Follow Up Care Test Results: Test results from this visit will be discussed in further detail at your follow-up appointment, if applicable. Discharge Plan Admission Admit Date/Time: 08/26/23 19:57 Primary Reason for Your Visit: Ileus. Attending Provider: Joel Santana Primary Care Provider: Viridiana Sexton Consulting Providers: Melissa Callahan Instructions Additional Instructions / Restrictions: You had an abdominal ileus likely exacerbated by constipation. You will be a regimen for you bowels to help prevent this from occurring in the future. Discharge Orders/Prescriptions Prescriptions: New bisacodyl [Dulcolax (bisacodyl)] 5 mg tablet,delayed release (DR/EC) 5 mg PO DAILY PRN (Reason: constipation) 2 Days Qty: 10 0RF Rx Instructions: over the counter. no prescription needed. docusate sodium [Colace] 100 mg capsule 100 mg PO BID Qty: 30 0RF Rx Instructions: over the counter. no prescription needed. Continued montelukast 10 mg tablet 10 mg PO DAILY 90 Days Patient Comments: levothyroxine [Synthroid] 50 mcg tablet 50 mcg PO QDAY cyanocobalamin (vitamin B-12) 1,000 mcg tablet, sublingual 500 mcg PO QDAY memantine 10 mg tablet 10 mg PO BID omeprazole 20 mg capsule,delayed release(DR/EC) 20 mg PO QHS Qty: 90 1RF Rx Instructions: Take at least 4 hours after last meal. citalopram 20 mg tablet 20 mg PO QHS cholecalciferol (vitamin D3) 50 mcg (2,000 unit) capsule 2,000 unit PO DAILY acetaminophen 325 mg capsule 650 mg PO Q4H PRN (Reason: pain) albuterol sulfate 90 mcg/actuation HFA aerosol inhaler 2 puff inhalation 6XD PRN (Reason: shortness of breath or wheezing) Eliquis 5 mg tablet 5 mg PO BID guaifenesin 100 mg/5 mL Liquid 200 mg PO Q4H PRN (Reason: Cough) magnesium hydroxide [Milk of Magnesia] 400 mg/5 mL Suspension 30 ml PO DAILY PRN (Reason: Constipation) midodrine 2.5 mg tablet 2.5 mg PO BID Rx Instructions: Hold if SBP>110 or DBP>70 (DME) handicap placard See Rx Instructions .ROUTE .MEDSUPPLY Qty: 1 0RF Rx Instructions: Length of time: 5 years Diagnosis: Impaired physical mobility z74.09 Referrals / Follow Up: Viridiana Sexton MD [Primary Care Provider] - Within 2 Weeks Disposition Disposition (needs filled in before D/C Order can be placed): NonSkilled [facility]
--- NOTE | 2023-08-28 15:27 | DS.PCM_ITS ---
Providers Date of Admission: 08/26/23 Primary Care Physician: Dr. Viirdiana Sexton MD Reason For Visit: ILEUS/CONSTIPATION Diagnosis Discharge Diagnosis (1) Ileus: Status: Acute Code(s): K56.7 - Ileus, unspecified Plan: Possible Colonic Ileus, Acute Constipation: Will admit to [facility], maintain on judicious IVFs, strict I&Os, IV pain/anti-emetics PRN, serial KUB as needed to montior bowel function, PPI, allow clears only until BM onset then advance diet as tolerated, will start scheduled golytely as well as OR dulcolax. Improving. Advance diet. Plan Chronic conditions: * Mild compression fracture L1 with 2 mm retropulsion with mild spinal canal stenosis resulting of unclear chronicity: CT abdomen and pelvis with contrast with noted mild colonic ileus, pancreatic cyst, mild compression fracture L1 with 2 mm retropulsion of the spinal canal producing mild spinal stenosis of unclear chronicity, maintain on fall precautions, frequent positional changes, PT/OT/case management consulted, given no significant pain do suspect likely chronic, may consider orthospine consultation outpatient if concerns arise. * Alzheimer's dementia with unclear behavioral disturbance history: We will continue patient home memantine home regimen, complicates presentation, maintain on fall precautions, PT/OT/case management consulted for discharge planning. * Chronic asthma with allergic rhinitis: Per current list on on chronic regimen, will have PRN albuterol, HOB, IS parameters, continue patient chronic home montelukast regimen. * Chronic Kidney Disease Stage II per review of GFR trending primarily 60-70 range since 02/14/2022: Recent 08/25/2023 BUN/creatinine 19/0.94, baseline renal function primarily 0.7-0.9, repeat BMP in AM. * Chronic normocytic anemia: Recent 08/25/2023 hemoglobin 11.3, MCV 94.4, baseline hemoglobin appears 10-11, stable, will repeat CBC in a.m. * Frequent falls with orthostatic hypotension: We will continue patient chronic midodrine regimen, maintain fall precautions. * Hypothyroidism: We will continue patient on levothyroxine regimen. TSH and FT requested. * Anxiety and depression: We will continue patient home citalopram regimen. * History VTE: Patient with history DVT, PE, continue patient home low-dose apixaban regimen. * Overweight: Weight loss and lifestyle changes encouraged. * GERD: Continue home PPI. DVT prophylaxis: We will continue patient home low-dose apixaban, given frequent falls certainly high risk but history of VTE is noted. CODE status: DNR-CCA, no intubation status. Disposition: TBD. Eventually to [facility]. Medications at Discharge Home Medications levothyroxine 50 mcg tablet (Synthroid) 50 mcg PO QDAY 02/02/18 montelukast 10 mg tablet 10 mg PO DAILY ASTHMA 90 days 02/02/18 memantine 10 mg tablet 10 mg PO BID 07/31/19 cyanocobalamin (vitamin B-12) 1,000 mcg sublingual tablet 500 mcg PO QDAY 09/23/20 cholecalciferol (vitamin D3) 50 mcg (2,000 unit) capsule 2,000 unit PO DAILY 06/08/21 citalopram 20 mg tablet 20 mg PO QHS 06/08/21 omeprazole 20 mg capsule,delayed release 20 mg PO QHS #90 caps 06/14/21 guaifenesin 100 mg/5 mL oral liquid 200 mg PO Q4H PRN Cough 01/24/22 magnesium hydroxide 400 mg/5 mL oral suspension (Milk of Magnesia) 30 ml PO DAILY PRN Constipation 01/24/22 acetaminophen 325 mg capsule 650 mg PO Q4H PRN pain 05/19/22 albuterol sulfate 90 mcg/actuation aerosol inhaler 2 puff inhalation 6XD PRN shortness of breath or wheezing 05/19/22 apixaban 5 mg tablet (Eliquis) 5 mg PO BID 05/19/22 midodrine 2.5 mg tablet 2.5 mg PO BID 05/19/22 handicap placard #1 ea 06/13/23 bisacodyl 5 mg tablet,delayed release (Dulcolax (bisacodyl)) 5 mg PO DAILY PRN constipation 2 days #10 tabs 08/28/23 docusate sodium 100 mg capsule (Colace) 100 mg PO BID #30 caps 08/28/23 Hospital Course Operations None Procedures None Summary of Care Provided Hospital Course: Patient had an ileus likely due to constipation. Patient was given GoLytely did have bowel movements and was overall doing better. Patient was discharged back to assisted living. Weight / BMI Weight Weight: 64.6 kg Body Mass Index (BMI) 27.8 ABG / Lab / Microbiology Data 08/27/23 04:50 08/27/23 04:50 D/C Instructions Discharge Diet: - (bland diet, advance as tolerated. ) Call your doctor if you observe: - (worsening abdominal pain. ) Meaningful Use Info Meaningful Use Diagnoses (Choose all that apply): None applicable Discharge Plan Admission Admit Date/Time: 08/26/23 19:57 Primary Reason for Your Visit: Ileus. Attending Provider: Joel Santana Primary Care Provider: Viridiana Sexton Consulting Providers: Melissa Callahan Instructions Additional Instructions / Restrictions: You had an abdominal ileus likely exacerbated by constipation. You will be a re gimen for you bowels to help prevent this from occurring in the future. Discharge Orders/Prescriptions Prescriptions: New bisacodyl [Dulcolax (bisacodyl)] 5 mg tablet,delayed release (DR/EC) 5 mg PO DAILY PRN (Reason: constipation) 2 Days Qty: 10 0RF Rx Instructions: over the counter. no prescription needed. docusate sodium [Colace] 100 mg capsule 100 mg PO BID Qty: 30 0RF Rx Instructions: over the counter. no prescription needed. Continued montelukast 10 mg tablet 10 mg PO DAILY 90 Days Patient Comments: levothyroxine [Synthroid] 50 mcg tablet 50 mcg PO QDAY cyanocobalamin (vitamin B-12) 1,000 mcg tablet, sublingual 500 mcg PO QDAY memantine 10 mg tablet 10 mg PO BID omeprazole 20 mg capsule,delayed release(DR/EC) 20 mg PO QHS Qty: 90 1RF Rx Instructions: Take at least 4 hours after last meal. citalopram 20 mg tablet 20 mg PO QHS cholecalciferol (vitamin D3) 50 mcg (2,000 unit) capsule 2,000 unit PO DAILY acetaminophen 325 mg capsule 650 mg PO Q4H PRN (Reason: pain) albuterol sulfate 90 mcg/actuation HFA aerosol inhaler 2 puff inhalation 6XD PRN (Reason: shortness of breath or wheezing) Eliquis 5 mg tablet 5 mg PO BID guaifenesin 100 mg/5 mL Liquid 200 mg PO Q4H PRN (Reason: Cough) magnesium hydroxide [Milk of Magnesia] 400 mg/5 mL Suspension 30 ml PO DAILY PRN (Reason: Constipation) midodrine 2.5 mg tablet 2.5 mg PO BID Rx Instructions: Hold if SBP>110 or DBP>70 (DME) handicap placard See Rx Instructions .ROUTE .MEDSUPPLY Qty: 1 0RF Rx Instructions: Length of time: 5 years Diagnosis: Impaired physical mobility z74.09 Referrals / Follow Up: Viridiana Sexton MD [Primary Care Provider] - Within 2 Weeks Disposition Disposition (needs filled in before D/C Order can be placed): NonSkilled NH/Intermed Care Charges/Coding Visit Charges Inpatient E&M: 75459 Disch Hosp
[2023-08-28 15:50] VITALS: BP 132/73; PULSE 68; RESP 18; TEMP 37; O2SAT 95
--- NOTE | 2023-08-28 17:30 | CASEMGMT ---
Social Work Received notice that patient may be discharged back to assisted living today yet, if tolerates diet this evening. Called [facility] and spoke with nurse Beulah in the [facility] unit (assisted living for memory care) at [facility]. Notified of potential discharge. Confirmed fax ([phone]) for discharge instructions. Spoke with patient's daughter Adrianna of possibility. Green sheet completed and community action worker and residency program coordinator notified of Green Sheet; of possible discharge later today. Plan: Return to assisted living at [facility] when medically stable. -DOMINIC Moreira
[2023-08-28 20:48] VITALS: BP 119/56; PULSE 77; RESP 16; TEMP 37.1; O2SAT 93
--- NOTE | 2023-08-28 21:25 | NURSING ---
report given to transport team, belongings with pt
== END 2023-08-28 21:20 | disposition home or self-care (01) ==
LOC: ED 20:04 → PCU 20:11
PROVIDERS: Admitting Provider Family Medicine; Emergency Provider Emergency Medicine; PCP Internal Medicine
DX: K56.7 Ileus, unspecified (principal); G30.9 Alzheimer's disease, unspecified; F02.818 Dementia in other diseases classified elsewhere, unspecified severity, with other behavioral disturbance; I12.9 Hypertensive chronic kidney disease with stage 1 through stage 4 chronic kidney disease, or unspecified chronic kidney disease; E78.5 Hyperlipidemia, unspecified; Z86.16 Personal history of COVID-19; Z86.711 Personal history of pulmonary embolism; Z79.899 Other long term (current) drug therapy; Z79.890 Hormone replacement therapy; E03.9 Hypothyroidism, unspecified; Z79.01 Long term (current) use of anticoagulants; Z66 Do not resuscitate; N18.2 Chronic kidney disease, stage 2 (mild); J45.909 Unspecified asthma, uncomplicated; D64.9 Anemia, unspecified; I95.1 Orthostatic hypotension; R29.6 Repeated falls; F41.9 Anxiety disorder, unspecified; F32.A Depression, unspecified
CPT/HCPCS: 36415; 74018; 80053; 84439; 84443; 85025; 92526; 92610; 96360; 96361; 97110; 97162; 97166; 97530; 97802; 99221; 99285; J7030; A4216; G0378

== ENCOUNTER → 2023-11-27 | Outpatient (REF) | payer MEDICARE, OTHER, SELFPAY ==
[2023-11-27 09:56] LABS: Absolute Lymphocyte Count 0.96 X10^3/uL (0.83-4.51); Absolute Neutrophil Count 3.4 X10^3/uL (2.0-7.7); Basophil# 0.07 X10^3/uL; Basophil% 1.2 % (0-1); Eosinophil# 0.91 X10^3/uL; Hematocrit 35.4 % (37-47); Hemoglobin 10.8 g/dL (12.0-15.0); Lymphocyte # 0.96 X10^3/ul (0.83-4.51); Lymphocyte % 15.8 % (19-41); Mean Corp Hgb Conc 30.5 g/dL (32-36); Mean Corpuscular Volume 98.3 fL (81-99); Mean Platelet Vol. 11.6 fl (6.2-12.0); Monocyte# 0.67 X10^3/uL; Monocyte% 11.1 % (0-10); NRBC Flagged by Analyzer 0 % (0-5); Neutrophil # 3.43 X10^3/uL (2.7-7.7); Neutrophil % 56.6 % (47-70); Platelet Count 256 K/mm3 (150-450); RBC Distribution Width CV 14.7 % (11.6-14.6); RBC Distribution Width SD 53.9 fl (35.1-43.9); White Blood Count 6.1 K/mm3 (4.4-11.0)
[2023-11-27 10:21] LABS: ALB/GLOB Ratio 0.7 RATIO (0.9-2.4); AST(SGOT) 18 U/L (15-37); Alanine Aminotransfer ALT/SGPT 16 U/L (13-56); Albumin, Serum 3.1 g/dL (3.2-5.0); Alkaline Phosphatase 109 U/L (45-117); Anion Gap 5 (5-15); BUN 23 mg/dL (7-18); BUN/Creat Ratio 26.1 RATIO (10-20); Calcium,Total 9.3 mg/dL (8.5-10.1); Chloride 105 mmol/L (98-107); Creatinine, Serum 0.88 mg/dL (0.55-1.02); EST Glomerular Filtration Rate 64 mL/min (>60); Est Glom Filt Rate - Afr Amer 78 mL/min (>60); Globulin 4.3 g/dL (2.2-4.2); Glucose 103 mg/dL (74-106); Potassium 4.1 mmol/L (3.5-5.1); Protein, Total 7.4 g/dL (6.4-8.2); Sodium Level 138 mmol/L (136-145); Thyroid Stim Hormone (TSH) 1.29 uIU/mL (0.358-3.74)
== END ==
LOC: OLS.WHLTSB 05:00
PROVIDERS: PCP Internal Medicine; Visit Provider Internal Medicine
DX: N18.30 Chronic kidney disease, stage 3 unspecified (principal); G30.9 Alzheimer's disease, unspecified; J45.909 Unspecified asthma, uncomplicated
CPT/HCPCS: 36415; 80053; 84443; 85025

== ENCOUNTER → 2024-01-10 | Outpatient (REF) | payer MEDICARE, OTHER, SELFPAY ==
[2024-01-11 08:19] LABS: Color, Urine Yellow (Yellow); Glucose, Dipstick Normal (Normal); Ketone-Dipstick Negative (Negative); Leukocyte Esterase-Dipstick 500 /ul (Negative); Nitrite-Dipstick Positive (Negative); Occult Blood-Urine 50 /ul (Negative); Protein-Dipstick 30 mg/dl (Negative); Urine Bilirubin Dipstick Negative (Negative); Urine Clarity Cloudy (Clear); Urine Urobilinogen Normal (Normal)
== END ==
LOC: OLS.WHLTSB 08:13
PROVIDERS: PCP Internal Medicine; Visit Provider Nurse Practitioner Adult Health
DX: R39.9 Unspecified symptoms and signs involving the genitourinary system (principal)
CPT/HCPCS: 81002; 87077; 87086; 87088; 87186

== ENCOUNTER → 2024-02-26 | Outpatient (REF) | payer MEDICARE, OTHER, SELFPAY ==
[2024-02-26 08:11] LABS: Absolute Lymphocyte Count 1.02 X10^3/uL (0.83-4.51); Absolute Neutrophil Count 6.1 X10^3/uL (2.0-7.7); Basophil# 0.06 X10^3/uL; Basophil% 0.7 % (0-1); Eosinophil# 0.99 X10^3/uL; Eosinophils% 10.8 % (0-5); Hematocrit 31.3 % (37-47); Hemoglobin 9.5 g/dL (12.0-15.0); Lymphocyte # 1.02 X10^3/ul (0.83-4.51); Lymphocyte % 11.1 % (19-41); Mean Corp Hgb Conc 30.4 g/dL (32-36); Mean Corpuscular Hgb 28.5 pg (27.0-32.0); Mean Platelet Vol. 11.3 fl (6.2-12.0); Monocyte# 0.99 X10^3/uL; Monocyte% 10.8 % (0-10); NRBC Flagged by Analyzer 0 % (0-5); Neutrophil # 6.11 X10^3/uL (2.7-7.7); Neutrophil % 66.3 % (47-70); Platelet Count 249 K/mm3 (150-450); RBC Distribution Width CV 13.3 % (11.6-14.6); RBC Distribution Width SD 45.9 fl (35.1-43.9); Red Blood Count 3.33 M/mm3 (4.2-5.4); White Blood Count 9.2 K/mm3 (4.4-11.0)
[2024-02-26 08:43] LABS: ALB/GLOB Ratio 0.7 RATIO (0.9-2.4); AST(SGOT) 20 U/L (15-37); Alanine Aminotransfer ALT/SGPT 13 U/L (13-56); Albumin, Serum 2.6 g/dL (3.2-5.0); Alkaline Phosphatase 98 U/L (45-117); Anion Gap 4 (5-15); BUN 23 mg/dL (7-18); BUN/Creat Ratio 29.3 RATIO (10-20); Calcium,Total 8.6 mg/dL (8.5-10.1); Chloride 105 mmol/L (98-107); Creatinine, Serum 0.78 mg/dL (0.55-1.02); EST Glomerular Filtration Rate 73 mL/min (>60); Est Glom Filt Rate - Afr Amer 89 mL/min (>60); Globulin 3.8 g/dL (2.2-4.2); Glucose 90 mg/dL (74-106); Potassium 4.2 mmol/L (3.5-5.1); Protein, Total 6.4 g/dL (6.4-8.2); Sodium Level 137 mmol/L (136-145); Thyroid Stim Hormone (TSH) 1.88 uIU/mL (0.358-3.74)
== END ==
LOC: OLS.WHLTSB 05:00
PROVIDERS: PCP Internal Medicine; Visit Provider Internal Medicine
DX: N18.30 Chronic kidney disease, stage 3 unspecified (principal); G30.9 Alzheimer's disease, unspecified; J45.909 Unspecified asthma, uncomplicated; Z79.899 Other long term (current) drug therapy
CPT/HCPCS: 36415; 80053; 84443; 85025

== ENCOUNTER → 2024-03-13 | Outpatient (REF) | payer MEDICARE, OTHER, SELFPAY ==
[2024-03-13 08:15] LABS: Absolute Lymphocyte Count 1.03 X10^3/uL (0.83-4.51); Absolute Neutrophil Count 5.1 X10^3/uL (2.0-7.7); Basophil# 0.07 X10^3/uL; Basophil% 0.9 % (0-1); Eosinophil# 0.93 X10^3/uL; Eosinophils% 11.6 % (0-5); Hematocrit 33.7 % (37-47); Hemoglobin 10.4 g/dL (12.0-15.0); Lymphocyte # 1.03 X10^3/ul (0.83-4.51); Lymphocyte % 12.9 % (19-41); Mean Corp Hgb Conc 30.9 g/dL (32-36); Mean Corpuscular Volume 93.9 fL (81-99); Mean Platelet Vol. 10.9 fl (6.2-12.0); Monocyte# 0.83 X10^3/uL; Monocyte% 10.4 % (0-10); NRBC Flagged by Analyzer 0 % (0-5); Neutrophil # 5.12 X10^3/uL (2.7-7.7); Neutrophil % 63.9 % (47-70); Platelet Count 288 K/mm3 (150-450); RBC Distribution Width CV 13.7 % (11.6-14.6); RBC Distribution Width SD 46.6 fl (35.1-43.9); Red Blood Count 3.59 M/mm3 (4.2-5.4)
== END ==
LOC: OLS.WHLTSB 05:00
PROVIDERS: PCP Internal Medicine; Visit Provider Internal Medicine
DX: D64.9 Anemia, unspecified (principal)
CPT/HCPCS: 36415; 85025

== ENCOUNTER → 2024-05-27 | Outpatient (REF) | payer MEDICARE, OTHER, SELFPAY ==
[2024-05-27 10:48] LABS: Absolute Lymphocyte Count 1.58 X10^3/uL (0.83-4.51); Basophil# 0.05 X10^3/uL; Basophil% 0.6 % (0-1); Eosinophil# 0.38 X10^3/uL; Eosinophils% 4.7 % (0-5); Hemoglobin 9.1 g/dL (12.0-15.0); Lymphocyte # 1.58 X10^3/ul (0.83-4.51); Lymphocyte % 19.7 % (19-41); Mean Corp Hgb Conc 30.3 g/dL (32-36); Mean Corpuscular Hgb 27.9 pg (27.0-32.0); Mean Platelet Vol. 10.6 fl (6.2-12.0); Monocyte# 0.96 X10^3/uL; NRBC Flagged by Analyzer 0 % (0-5); Neutrophil # 4.99 X10^3/uL (2.7-7.7); Neutrophil % 62.3 % (47-70); Platelet Count 373 K/mm3 (150-450); RBC Distribution Width CV 14.6 % (11.6-14.6); RBC Distribution Width SD 49.4 fl (35.1-43.9); Red Blood Count 3.26 M/mm3 (4.2-5.4)
[2024-05-27 11:12] LABS: ALB/GLOB Ratio 0.8 RATIO (0.9-2.4); AST(SGOT) 22 U/L (15-37); Alanine Aminotransfer ALT/SGPT 17 U/L (13-56); Albumin, Serum 2.6 g/dL (3.2-5.0); Alkaline Phosphatase 94 U/L (45-117); Anion Gap 4 (5-15); BUN 21 mg/dL (7-18); BUN/Creat Ratio 28.5 RATIO (10-20); Calcium,Total 8.9 mg/dL (8.5-10.1); Chloride 101 mmol/L (98-107); Creatinine, Serum 0.74 mg/dL (0.55-1.02); EST Glomerular Filtration Rate 79 mL/min (>60); Est Glom Filt Rate - Afr Amer 95 mL/min (>60); Globulin 3.3 g/dL (2.2-4.2); Glucose 75 mg/dL (74-106); Protein, Total 5.9 g/dL (6.4-8.2); Sodium Level 135 mmol/L (136-145); Thyroid Stim Hormone (TSH) 3.29 uIU/mL (0.358-3.74)
== END ==
LOC: OLS.WHLTSB 05:00
PROVIDERS: PCP Internal Medicine; Visit Provider Internal Medicine
DX: G30.9 Alzheimer's disease, unspecified (principal); N18.30 Chronic kidney disease, stage 3 unspecified; L02.611 Cutaneous abscess of right foot; H11.32 Conjunctival hemorrhage, left eye; Z86.16 Personal history of COVID-19; Z86.711 Personal history of pulmonary embolism
CPT/HCPCS: 36415; 80053; 84443; 85025